=== PATIENT | male | born 1985 | race Caucasian/White ===

== ENCOUNTER 2017-04-22 16:33 | Inpatient (IN) | payer OTHER ==
[~2017-04-22] VITALS: Ht 175.3 cm; Wt 158.5 kg
[~2017-04-22 16:33] MED LIST: APIX1TAB3 PO; CARV3.12 PO
[2017-04-22 17:04] LABS: BASO % 0.1 %; BASO ABS # 0.01 K/uL (0-0.2); EOS % 0.6 %; EOS ABS # 0.07 K/uL (0-0.5); HEMATOCRIT 31.1 % (42-52); HEMOGLOBIN 9.9 g/dL (14.0-18.0); IG# 0.03 K/uL (0.00-0.02); LYMPH % 8.3 %; LYMPH ABS # 0.98 K/uL (1.2-3.4); MEAN CELL VOLUME 82.1 fL (80-100); MEAN CORPUSCULAR HEMOGLOBIN 26.1 pg (25-34); MEAN CORPUSCULAR HGB CONC 31.8 g/dl (32-36); MEAN PLATELET VOLUME 8.6 fL (7.4-10.4); MONO % 5.5 %; MONO ABS # 0.65 K/uL (0.11-0.59); NEUT % 85.2 %; NEUT ABS # 10.05 K/uL (1.4-6.5); PLATELET COUNT 324 K/uL (130-400); RED CELL DISTRIBUTION WIDTH SD 47.4 fL (36.4-46.3); WHITE BLOOD COUNT 11.79 K/uL (4.8-10.8)
--- NOTE | 2017-04-22 17:05 | EMERGENCY ROOM VISIT NOTE ---
History Report prepared by Janice: Hannah Mccallum Under the Supervision of: Dr. Kervin Guzman D.O. 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 As per nursing staff, he went to urgent care this morning and has a history of PEs. His oxygen saturation was in the 70s at urgent care. The patient reports he was told by the doctors that he had extremely low oxygen and recommended he come into the ED. He denies having any chest pain but has SOB whenever he walks. He notes he gets chills but denies any fevers. The patient states he believes he got a hernia four months ago because the area is "bulging." He also reports he has a history of IV drug abuse. 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 A total of 10 systems reviewed and were otherwise negative. Past Medical & Surgical Medical Problems: (1) Discitis of lumbar region (2) Pulmonary embolism Family History Hypertension Social History Smoking Status: Current Every Day Smoker Alcohol Use: none Drug Use: none Marital Status: single Housing Status: lives alone Occupation Status: unemployed Current/Historical Medications Scheduled Apixaban (Eliquis), 5 MG PO BID Allergies Coded Allergies: No Known Allergies (Unverified , 04/22/17) Physical Exam Vital Signs Date Time Temp Pulse Resp B/P (MAP) Pulse Ox O2 Delivery O2 Flow Rate FiO2 04/22/17 18:46 94 25 178/114 98 Nasal Cannula 4.0 04/22/17 17:52 96 21 168/107 99 Nasal Cannula 4.0 04/22/17 17:42 93 04/22/17 16:34 Nasal Cannula 4.0 04/22/17 16:34 36.8 120 26 185/115 76 Room Air 04/22/17 16:34 Nasal Cannula 4.0 Physical Exam GENERAL: Patient is awake and alert. Anxious appearing. Appears to be in distress. Awake, alert and oriented x3. EYES: The conjunctivae are clear. The pupils are round and reactive. EARS, NOSE, MOUTH AND THROAT: The nose is without any evidence of any deformity. Mucous membranes are moist tongue is midline NECK: The neck is nontender and supple. RESPIRATORY: Normal respiratory effort is noted there is no evidence of wheezing rhonchi or rales CARDIOVASCULAR: Regular rate and rhythm noted to auscultation. No distinct murmurs noted. Heart sounds were distant. ABDOMEN: GASTROINTESTINAL: Abdomen moderately distended. No guarding or rigidity appreciated. Significant scrotal edema noted. Erythema noted in both groins. MUSCULOSKELETAL/EXTREMITIES: There is no evidence of gross deformity full range of motion is noted in the hips and shoulders SKIN: Significant edema noted in both lower extremities NEUROLOGIC: Patient is awake alert and oriented x3 strength is symmetric patellar reflexes are 2+ bilaterally Medical Decision & Procedures ER Provider Diagnostic Interpretation: Radiology results as stated below per my review and radiologist interpretation: CHEST ONE VIEW PORTABLE CLINICAL HISTORY: Respiratory distress. Dyspnea. COMPARISON STUDY: Chest radiograph March 04, 2015. FINDINGS: Lordotic positioning on this exam is noted. There is no pneumothorax. No pleural effusion is visualized. Moderate cardiomegaly is noted. Reticulonodular interstitial thickening is present. There is no lobar consolidation. Bilateral hilar prominence is noted. There is a possible 1.8 cm right upper lobe opacity. IMPRESSION: 1. Interval development of reticulonodular interstitial thickening. Pulmonary edema is favored although an infectious process could appear similar. 2. Moderate cardiomegaly. 3. Possible 1.8 cm irregular right upper lobe opacity which can be assessed on chest CT which has been ordered. Electronically signed by: Kenny Frederick M.D. 04/22/2017 5:33 PM Dictated Date/Time: 04/22/2017 5:[address] OF THE ABDOMEN AND PELVIS WITHOUT CONTRAST CLINICAL HISTORY: Acute renal failure. COMPARISON STUDY: No previous studies for comparison. TECHNIQUE: Axial images of the abdomen and pelvis were obtained without IV contrast. Images were reviewed in the axial, sagittal, and coronal planes. A dose lowering technique was utilized adhering to the principles of ALARA. FINDINGS: Visualized portions of the lower chest demonstrate small bilateral pleural effusions. Interlobular septal thickening indicates pulmonary edema. There are mild subpleural opacities. Evaluation of the abdomen and pelvis is compromised given lack of contrast as well as artifact from the body wall contacting the anterior. Mild splenomegaly is noted. The tube within the gallbladder could reflect sludge or stones. There is no biliary or pancreatic ductal dilatation. There is no hydronephrosis. The kidneys appear mildly enlarged. No pneumatosis, free air or portal venous gas is present. There is no bowel obstruction. No suspicious lymphadenopathy is present. There is anasarca. Marked scrotal edema is partially imaged on this exam. There are no suspicious osseous lesions. There is mild diffuse increased sclerosis of visualized skeletal structures with multilevel degenerative disc disease. There is a small amount of ascites. IMPRESSION: 1. No hydronephrosis. 2. Evidence for volume overload, including anasarca with marked scrotal edema, small bilateral pleural effusions, interstitial pulmonary edema and trace ascites. 3. Mild bilateral renal enlargement. 4. Mild to moderate splenomegaly and mild hepatomegaly. 5. Sludge versus stones within the gallbladder. Electronically signed by: Kenny Frederick M.D. 04/22/2017 8:33 PM Dictated Date/Time: 04/22/2017 8:[address] OF THE CHEST WITHOUT IV CONTRAST CLINICAL HISTORY: PNM vs CHF COMPARISON STUDY: Chest radiograph March 04, 2015 and April 22, 2017. CT DOSE: 1141.25 mGy.cm TECHNIQUE: Axial images of the chest were obtained without IV contrast. Images were reviewed in the axial, sagittal, and coronal planes. IV contrast was not administered for this examination. A dose lowering technique was utilized adhering to the principles of ALARA. FINDINGS: Anasarca is noted. There is no pneumothorax. Small bilateral pleural effusions are noted. There is mild cardiomegaly. There is trace pericardial fluid. Central airways are patent. Interlobular septal thickening is noted. There are mild groundglass opacities as well as mild subpleural opacities. There is asymmetric right hilar enlargement. There is linear hyperdensity within the superior aspect of the right hilum. Mild to moderate splenomegaly is better depicted on the abdominal CT. Note is made of a 9 mm irregular opacity within the right upper lobe on image 103 of 306. This has adjacent cystic foci. Mildly enlarged bilateral axillary and mediastinal lymph nodes are noted. There may be bilateral hilar lymphadenopathy as well which is suboptimally assessed on this unenhanced exam. IMPRESSION: 1. Mild interstitial pulmonary edema. 2. Mild subpleural opacities which favor atelectasis however an infectious process could appear similar. 9 mm irregular opacity within the right upper lobe with a few adjacent cystic foci. This is likely benign however a follow-up chest CT in 3 months is recommended. 3. Evidence for volume overload with small bilateral pleural effusions and anasarca. 4. Asymmetric right hilar enlargement which may be vascular in etiology. However, lymphadenopathy could appear similar. Linear hyperdensity within the superior right hilum. If adequate renal function, a follow-up contrast-enhanced CT of the chest is recommended. 5. Mild mediastinal lymphadenopathy. Electronically signed by: Kenny Frederick M.D. 04/22/2017 10:06 PM Dictated Date/Time: 04/22/2017 9:54 PM Laboratory Results 04/22/17 16:53 Red Blood Count 3.79, Mean Corpuscular Volume 82.1, Mean Corpuscular Hemoglobin 26.1, Mean Corpuscular Hemoglobin Concent 31.8, Mean Platelet Volume 8.6, Neutrophils (%) (Auto) 85.2, Lymphocytes (%) (Auto) 8.3, Monocytes (%) (Auto) 5.5, Eosinophils (%) (Auto) 0.6, Basophils (%) (Auto) 0.1, Neutrophils # (Auto) 10.05, Lymphocytes # (Auto) 0.98, Monocytes # (Auto) 0.65, Eosinophils # (Auto) 0.07, Basophils # (Auto) 0.01 04/22/17 16:53 Test 04/22/17 16:53 04/22/17 18:25 White Blood Count 11.79 K/uL (4.8-10.8) Red Blood Count 3.79 M/uL (4.7-6.1) Hemoglobin 9.9 g/dL (14.0-18.0) Hematocrit 31.1 % (42-52) Mean Corpuscular Volume 82.1 fL (80-100) Mean Corpuscular Hemoglobin 26.1 pg (25-34) Mean Corpuscular Hemoglobin Concent 31.8 g/dl (32-36) Platelet Count 324 K/uL (130-400) Mean Platelet Volume 8.6 fL (7.4-10.4) Neutrophils (%) (Auto) 85.2 % Lymphocytes (%) (Auto) 8.3 % Monocytes (%) (Auto) 5.5 % Eosinophils (%) (Auto) 0.6 % Basophils (%) (Auto) 0.1 % Neutrophils # (Auto) 10.05 K/uL (1.4-6.5) Lymphocytes # (Auto) 0.98 K/uL (1.2-3.4) Monocytes # (Auto) 0.65 K/uL (0.11-0.59) Eosinophils # (Auto) 0.07 K/uL (0-0.5) Basophils # (Auto) 0.01 K/uL (0-0.2) RDW Standard Deviation 47.4 fL (36.4-46.3) RDW Coefficient of Variation 16.0 % (11.5-14.5) Immature Granulocyte % (Auto) 0.3 % Immature Granulocyte # (Auto) 0.03 K/uL (0.00-0.02) Prothrombin Time 11.2 SECONDS (9.0-12.0) Prothromb Time International Ratio 1.1 (0.9-1.1) Activated Partial Thromboplast Time 27.3 SECONDS (21.0-31.0) Partial Thromboplastin Ratio 1.1 Anion Gap 6.0 mmol/L (3-11) Estimated GFR () 46.9 Estimated GFR (Non- 40.4 BUN/Creatinine Ratio 10.5 (10-20) Calcium Level 7.3 mg/dl (8.5-10.1) Total Bilirubin 0.3 mg/dl (0.2-1) Aspartate Amino Transf (AST/SGOT) 23 U/L (15-37) Alanine Aminotransferase (ALT/SGPT) 12 U/L (12-78) Alkaline Phosphatase 230 U/L (45-117) Total Creatine Kinase 46 U/L (39-308) Creatine Kinase MB 1.3 ng/ml (0.5-3.6) Creatine Kinase MB Ratio 2.8 (0-3.0) Troponin I 0.040 ng/ml (0-0.045) Pro-B-Type Natriuretic Peptide > 36305 pg/ml (0-450) Total Protein 5.5 gm/dl (6.4-8.2) Albumin 1.3 gm/dl (3.4-5.0) Globulin 4.2 gm/dl (2.5-4.0) Albumin/Globulin Ratio 0.3 (0.9-2) Urine Color BROWN Urine Appearance TURBID (CLEAR) Urine pH (4.5-7.5) Urine Specific [place] 1.032 (1.000-1.030) Urine Protein (NEG) Urine Glucose (UA) (NEG) Urine Ketones (NEG) Urine Occult Blood (NEG) Urine Nitrite (NEG) Urine Bilirubin (NEG) Urine Urobilinogen (NEG) Urine Leukocyte Esterase (NEG) Urine RBC >30 /hpf (0-4) Urine WBC >30 /hpf (0-5) Urine Epithelial Cells >30 /lpf (0-5) Urine Bacteria 2+ (NEG) Urine Yeast PRESENT (NONE PRSENT) Laboratory results per my review. Medications Administered Medications (Trade) Dose Ordered Sig/Silvio Route Start Time Stop Time Status Last Admin Dose Admin Ceftriaxone Sodium (Rocephin Inj) 1 gm NOW STAT IV 04/22/17 18:54 04/22/17 18:55 DC 04/22/17 19:29 1 GM Furosemide (Lasix Inj) 40 mg NOW STAT IV 04/22/17 19:30 04/22/17 19:31 DC 04/22/17 19:42 40 MG ED Course 1646: The patient was evaluated in room C11. A complete history and physical examination were performed. 1710: I checked on the patient at this time. He is anxious appearing. 4: Rocephin Inj 1 gm IV 8: I spoke with Dr. Sanchez, [facility] Hospitalist. We discussed the patient's results 0: Lasix Inj 40 mg IV 1944: I spoke with Dr. Omalley, [facility] Hospitalist. We discussed the patient's case. He will further evaluate the patient. Medical Decision Prior records/ancillary studies reviewed. Triage Nursing notes reviewed. The patient's history was concerning for respiratory difficulties. Differential diagnosis: Etiologies such as infections, reactive airway disease, pneumonia, pneumothorax , COPD, CHF, cardiac ischemia, pulmonary embolism, musculoskeletal, gastrointestinal, as well as others were entertained. The patient is a 31-year-old male who presented to the emergency department from the [facility] in [place] for an evaluation of difficulty breathing. The patient has been noticing lower extremity and scrotal edema as well as difficulty breathing. The patient was found to have significant hypoxia and was sent to our emergency department for further evaluation. At this time the patient appears to have signs of pulmonary edema. He has a history of venous thromboembolic disease and currently is taking anticoagulation. He had a bump in his creatinine and therefore could not have IV contrasted scans at this time. CT of the abdomen and pelvis was obtained. The patient was treated with Lasix as well as IV antibiotics for presumed urinary tract infection. I discussed the patient's laboratory and radiographic studies with him. I also discussed his case with the on-call [facility] hospitalist group. They have agreed to evaluate the patient in the emergency department for further management and disposition. Medication Reconcilliation Current Medication List: was personally reviewed by me Blood Pressure Screening Patient's blood pressure: Elevated blood pressure Blood pressure disposition: Referred to PCP Consults Time Called: 1849 Consulting Physician: Dr. Sanchez, [facility] Hospitalist Returned Call: 1857 I discussed the patient's results. Additional Consults: Time Called: 1939 Consulted Physician: Dr. Omalley, [facility] Hospitalist Returned Call: 1944 Additional Comments: We discussed the patient's results. He will further evaluate the patient. Impression Primary Impression: Hypoxia Additional Impressions: Pulmonary edema Acute kidney injury Urinary tract infection Scribe Attestation The scribe's documentation has been prepared under my direction and personally reviewed by me in its entirety. I confirm that the note above accurately reflects all work, treatment, procedures, and medical decision making performed by me. Departure Information Dispostion Being Evaluated By Hospitalist Referrals Luis Ha D.O. (PCP) Problem Qualifiers Additional Impressions: Pulmonary edema Chronicity: acute Qualified Codes: J81.0 - Acute pulmonary edema Urinary tract infection Urinary tract infection type: site unspecified Hematuria presence: with hematuria Qualified Codes: N39.0 - Urinary tract infection, site not specified ; R31.9 - Hematuria, unspecified
[2017-04-22 17:13] LABS: INR 1.1 (0.9-1.1); PTT PATIENT 27.3 SECONDS (21.0-31.0)
[2017-04-22] MEDS ORDERED: OPTIRAY 320 IV PRN (17:15)
[2017-04-22 17:23] LABS: ALBUMIN 1.3 gm/dl (3.4-5.0); ALT/SGPT 12 U/L (12-78); AST/SGOT 23 U/L (15-37); BLOOD UREA NITROGEN 22 mg/dl (7-18); CALCIUM 7.3 mg/dl (8.5-10.1); CARBON DIOXIDE 26 mmol/L (21-32); GLUCOSE 100 mg/dl (70-99); POTASSIUM 3.8 mmol/L (3.5-5.1); SODIUM 142 mmol/L (136-145)
[2017-04-22 17:28] LABS: ALKALINE PHOSPHATASE 230 U/L (45-117); CKMB 1.3 ng/ml (0.5-3.6); TOTAL PROTEIN 5.5 gm/dl (6.4-8.2)
--- NOTE | 2017-04-22 17:35 | DIAGNOSTIC IMAGING REPORT ---
CHEST ONE VIEW PORTABLE CLINICAL HISTORY: Respiratory distress. Dyspnea. COMPARISON STUDY: Chest radiograph March 04, 2015. FINDINGS: Lordotic positioning on this exam is noted. There is no pneumothorax. No pleural effusion is visualized. Moderate cardiomegaly is noted. Reticulonodular interstitial thickening is present. There is no lobar consolidation. Bilateral hilar prominence is noted. There is a possible 1.8 cm right upper lobe opacity. IMPRESSION: 1. Interval development of reticulonodular interstitial thickening. Pulmonary edema is favored although an infectious process could appear similar. 2. Moderate cardiomegaly. 3. Possible 1.8 cm irregular right upper lobe opacity which can be assessed on chest CT which has been ordered. Electronically signed by: Kenny Frederick M.D. 04/22/2017 5:33 PM Dictated Date/Time: 04/22/2017 5:31 PM
[2017-04-22] MEDS ORDERED: CEFTRIAXONE SOD INJ 1 GM ADDVIAL IV STA (18:54)
[2017-04-22] MEDS ORDERED: FUROSEMIDE 40 MG/4 ML VIAL IV STA (19:30)
--- NOTE | 2017-04-22 20:35 | DIAGNOSTIC IMAGING REPORT ---
CT OF THE ABDOMEN AND PELVIS WITHOUT CONTRAST CLINICAL HISTORY: Acute renal failure. COMPARISON STUDY: No previous studies for comparison. TECHNIQUE: Axial images of the abdomen and pelvis were obtained without IV contrast. Images were reviewed in the axial, sagittal, and coronal planes. A dose lowering technique was utilized adhering to the principles of ALARA. FINDINGS: Visualized portions of the lower chest demonstrate small bilateral pleural effusions. Interlobular septal thickening indicates pulmonary edema. There are mild subpleural opacities. Evaluation of the abdomen and pelvis is compromised given lack of contrast as well as artifact from the body wall contacting the anterior. Mild splenomegaly is noted. The tube within the gallbladder could reflect sludge or stones. There is no biliary or pancreatic ductal dilatation. There is no hydronephrosis. The kidneys appear mildly enlarged. No pneumatosis, free air or portal venous gas is present. There is no bowel obstruction. No suspicious lymphadenopathy is present. There is anasarca. Marked scrotal edema is partially imaged on this exam. There are no suspicious osseous lesions. There is mild diffuse increased sclerosis of visualized skeletal structures with multilevel degenerative disc disease. There is a small amount of ascites. IMPRESSION: 1. No hydronephrosis. 2. Evidence for volume overload, including anasarca with marked scrotal edema, small bilateral pleural effusions, interstitial pulmonary edema and trace ascites. 3. Mild bilateral renal enlargement. 4. Mild to moderate splenomegaly and mild hepatomegaly. 5. Sludge versus stones within the gallbladder. Electronically signed by: Kenny Frederick M.D. 04/22/2017 8:33 PM Dictated Date/Time: 04/22/2017 8:28 PM
--- NOTE | 2017-04-22 20:58 | History and Physical ---
History & Physical Date & Time of Service: Apr 22, 2017 at 20:19 Chief Complaint: Edema To Hands, Legs & Groin Primary Care Physician: Luis Ha D.O. History of Present Illness Source: patient 31 y/o M Hx PE, obesity, previous IVDU, lumbar osteomyelitis. The pt states he began developing LE edema 3 months ago. This became progressively worse and appeared to gradually ascend. 4 days prior he began developing scrotal edema which in turn was affecting his ability to work. He presented to an urgent care center where it was noted that his oxygen saturation was low. He was referred to the hospital for admission. The pt denies a recent illness, denies recent IVDU, denies CP or significant SOB. Initial labs obtained in the ER reveal ARF and severe hypoalbuminemia. An XR shows BL pleural effusions. Clinically, anasarca is apparent with pitting edema of his legs, abdomen and arms. 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 Smoking Status: Current Every Day Smoker Drug Use: none Marital Status: single Occupational Status: unemployed Allergies Coded Allergies: No Known Allergies (Unverified , 04/22/17) Home Medications Scheduled Apixaban (Eliquis), 5 MG PO BID Review of Systems Constitutional: No fever, No chills, No sweats Eyes: No worsening of vision ENT: No hearing loss, No nasal symptoms Respiratory: No cough, No sputum, No shortness of breath, No dyspnea on exertion, No dyspnea at rest Cardiovascular: No chest pain, No orthopnea, No PND Abdomen: No pain, No nausea, No vomiting Musculoskeletal: + problem reported (Swelling of legs, arms, scrotum and abdomen), No joint pain Genitourinary - Male: No hematuria, No dysuria Neurologic: No memory loss, No paralysis, No weakness Psychiatric: No depression symptoms Endocrine: No fatigue Hematologic / Lymphatic: No abnormal bleeding/bruising Integumentary: No rash Allergic / Immunologic: No environmental allergies Physical Exam Vital Signs Date Time Temp Pulse Resp B/P (MAP) Pulse Ox O2 Delivery O2 Flow Rate FiO2 04/22/17 18:46 94 25 178/114 98 Nasal Cannula 4.0 04/22/17 17:52 96 21 168/107 99 Nasal Cannula 4.0 04/22/17 17:42 93 04/22/17 16:34 Nasal Cannula 4.0 04/22/17 16:34 36.8 120 26 185/115 76 Room Air 04/22/17 16:34 Nasal Cannula 4.0 General Appearance: WD/WN, no apparent distress Head: normocephalic Eyes: normal inspection ENT: normal ENT inspection, pharynx normal Neck: supple, + pertinent finding (Cannot evaluate JVD due to habitus) Respiratory/Chest: chest non-tender, + pertinent finding (NO air entry at bases - no crackles or wheezing) Cardiovascular: regular rate, rhythm Abdomen/GI: normal bowel sounds, non tender, + pertinent finding (pitting edema of lower abdomen) Genitourinary - Male: + pertinent finding (Scrotal edema) Back: normal inspection, no CVA tenderness Extremities/Musculoskelatal: + pertinent finding (Massive BL pitting edema tracking into pelvis/thighs) Neurologic/Psych: intellectual property lawyer II-XII nml as tested, no motor/sensory deficits, alert, oriented x 3 Skin: normal color Diagnostics Laboratory Results Results Past 24 Hours Test 04/22/17 16:53 04/22/17 18:25 Range/Units White Blood Count 11.79 4.8-10.8 K/uL Red Blood Count 3.79 4.7-6.1 M/uL Hemoglobin 9.9 14.0-18.0 g/dL Hematocrit 31.1 42-52 % Mean Corpuscular Volume 82.1 80-100 fL Mean Corpuscular Hemoglobin 26.1 25-34 pg Mean Corpuscular Hemoglobin Concent 31.8 32-36 g/dl Platelet Count 324 130-400 K/uL Mean Platelet Volume 8.6 7.4-10.4 fL Neutrophils (%) (Auto) 85.2 % Lymphocytes (%) (Auto) 8.3 % Monocytes (%) (Auto) 5.5 % Eosinophils (%) (Auto) 0.6 % Basophils (%) (Auto) 0.1 % Neutrophils # (Auto) 10.05 1.4-6.5 K/uL Lymphocytes # (Auto) 0.98 1.2-3.4 K/uL Monocytes # (Auto) 0.65 0.11-0.59 K/uL Eosinophils # (Auto) 0.07 0-0.5 K/uL Basophils # (Auto) 0.01 0-0.2 K/uL RDW Standard Deviation 47.4 36.4-46.3 fL RDW Coefficient of Variation 16.0 11.5-14.5 % Immature Granulocyte % (Auto) 0.3 % Immature Granulocyte # (Auto) 0.03 0.00-0.02 K/uL Prothrombin Time 11.2 9.0-12.0 SECONDS Prothromb Time International Ratio 1.1 0.9-1.1 Activated Partial Thromboplast Time 27.3 21.0-31.0 SECONDS Partial Thromboplastin Ratio 1.1 Sodium Level 142 136-145 mmol/L Potassium Level 3.8 3.5-5.1 mmol/L Chloride Level 110 98-107 mmol/L Carbon Dioxide Level 26 21-32 mmol/L Anion Gap 6.0 3-11 mmol/L Blood Urea Nitrogen 22 7-18 mg/dl Creatinine 2.10 0.60-1.40 mg/dl Estimated GFR () 46.9 Estimated GFR (Non- 40.4 BUN/Creatinine Ratio 10.5 10-20 Random Glucose 100 70-99 mg/dl Calcium Level 7.3 8.5-10.1 mg/dl Total Bilirubin 0.3 0.2-1 mg/dl Aspartate Amino Transf (AST/SGOT) 23 15-37 U/L Alanine Aminotransferase (ALT/SGPT) 12 12-78 U/L Alkaline Phosphatase 230 45-117 U/L Total Creatine Kinase 46 39-308 U/L Creatine Kinase MB 1.3 0.5-3.6 ng/ml Creatine Kinase MB Ratio 2.8 0-3.0 Troponin I 0.040 0-0.045 ng/ml Pro-B-Type Natriuretic Peptide > 97942 0-450 pg/ml Total Protein 5.5 6.4-8.2 gm/dl Albumin 1.3 3.4-5.0 gm/dl Globulin 4.2 2.5-4.0 gm/dl Albumin/Globulin Ratio 0.3 0.9-2 Urine Color BROWN Urine Appearance TURBID CLEAR Urine pH 4.5-7.5 Urine Specific [place] 1.032 1.000-1.030 Urine Protein NEG Urine Glucose (UA) NEG Urine Ketones NEG Urine Occult Blood NEG Urine Nitrite NEG Urine Bilirubin NEG Urine Urobilinogen NEG Urine Leukocyte Esterase NEG Urine RBC >30 0-4 /hpf Urine WBC >30 0-5 /hpf Urine Epithelial Cells >30 0-5 /lpf Urine Bacteria 2+ NEG Urine Yeast PRESENT NONE PRSENT Diagnostic Radiology CXR: 1. Interval development of reticulonodular interstitial thickening. Pulmonary edema is favored although an infectious process could appear similar. 2. Moderate cardiomegaly. 3. Possible 1.8 cm irregular right upper lobe opacity which can be assessed on chest CT which has been ordered. CT abdomen: 1. No hydronephrosis. 2. Evidence for volume overload, including anasarca with marked scrotal edema, small bilateral pleural effusions, interstitial pulmonary edema and trace ascites. 3. Mild bilateral renal enlargement. 4. Mild to moderate splenomegaly and mild hepatomegaly. 5. Sludge versus stones within the gallbladder EKG Sinus tach, low voltage - nonspecific lateral ST changes Impression Assessment and Plan 31 y/o M Hx PE, obesity, previous IVDU, lumbar osteomyelitis. The pt states he began developing LE edema 3 months ago. This became progressively worse and appeared to gradually ascend. 4 days prior he began developing scrotal edema which in turn was affecting his ability to work. He presented to an urgent care center where it was noted that his oxygen saturation was low. He was referred to the hospital for admission. The pt denies a recent illness, denies recent IVDU, denies CP or significant SOB. Initial labs obtained in the ER reveal ARF and severe hypoalbuminemia. An XR shows BL pleural effusions. Clinically, anasarca is apparent with pitting edema of his legs, abdomen and arms. 1) Anasarca with pleural effusions. Combined with ARF and hypoalbuminemia, this most likely represents nephrotic syndrome. We cannot entirely rule out CHF , however, he denies related symptoms. It is also noted that he had a spontaneous PE, is taking Eliquis, and was not provided with a definitive etiology. It may be that his nephrotic syndrome has been present for an extended period and is just now manifesting clinically. He would also be at risk fro hep C and cryoglobulinemia due to previous IVDU. We have consulted nephrology, he will be started on Lasix and may require an DAVID as well as steroids depending on the etiology of his syndrome. We have requested a hep C screen, C3, C4, KENN, urine and serum electrophoresis, cryoglobulin level. A 24 hr urine protein collection is initiated. An echo is pending for AM - an EKG shows low voltage which may be owing to his habitus, however, a pericardial effusion would not be unexpected. 2) History of PE - pt has been compliant with Eliquis - a CTA is deferred due to ARF. 3) AST is elevated - elevation is chronic 4) The pt's UA is (+) - unclear if this is a valid sample - will treat with Ceftriaxone pending culture results and repeat UA Full code - Apixaban Total time for this admit including review of labs, meds, imaging, records - discussion with pt and ER attending - 45 min Level of Care Telemetry Resuscitation Status FULL RESUSCITATION VTE Prophylaxis Given or contraindicated: Other Anticoagulation
[2017-04-22] MEDS ORDERED: ONDANSETRON INJ 2 MG/ML 2 ML VIAL IV PRN (21:00)
[2017-04-22] MEDS ORDERED: ALUMINUM/MAGNESIUM/SIMETH (MAALOX MAX) 30 ML UDC PO PRN (21:00)
[2017-04-22] MEDS ORDERED: ACETAMINOPHEN 325 MG TAB PO PRN (21:00)
[2017-04-22] MEDS ORDERED: POLYETHYLENE (MIRALAX) 17 GM PACK PO PRN (21:00)
[2017-04-22] MEDS ORDERED: MAGNESIUM HYDROXIDE SUSP 30 ML UDC PO PRN (21:00)
--- NOTE | 2017-04-22 22:07 | DIAGNOSTIC IMAGING REPORT ---
CT OF THE CHEST WITHOUT IV CONTRAST CLINICAL HISTORY: PNM vs CHF COMPARISON STUDY: Chest radiograph March 04, 2015 and April 22, 2017. CT DOSE: 1141.25 mGy.cm TECHNIQUE: Axial images of the chest were obtained without IV contrast. Images were reviewed in the axial, sagittal, and coronal planes. IV contrast was not administered for this examination. A dose lowering technique was utilized adhering to the principles of ALARA. FINDINGS: Anasarca is noted. There is no pneumothorax. Small bilateral pleural effusions are noted. There is mild cardiomegaly. There is trace pericardial fluid. Central airways are patent. Interlobular septal thickening is noted. There are mild groundglass opacities as well as mild subpleural opacities. There is asymmetric right hilar enlargement. There is linear hyperdensity within the superior aspect of the right hilum. Mild to moderate splenomegaly is better depicted on the abdominal CT. Note is made of a 9 mm irregular opacity within the right upper lobe on image 103 of 306. This has adjacent cystic foci. Mildly enlarged bilateral axillary and mediastinal lymph nodes are noted. There may be bilateral hilar lymphadenopathy as well which is suboptimally assessed on this unenhanced exam. IMPRESSION: 1. Mild interstitial pulmonary edema. 2. Mild subpleural opacities which favor atelectasis however an infectious process could appear similar. 9 mm irregular opacity within the right upper lobe with a few adjacent cystic foci. This is likely benign however a follow-up chest CT in 3 months is recommended. 3. Evidence for volume overload with small bilateral pleural effusions and anasarca. 4. Asymmetric right hilar enlargement which may be vascular in etiology. However, lymphadenopathy could appear similar. Linear hyperdensity within the superior right hilum. If adequate renal function, a follow-up contrast-enhanced CT of the chest is recommended. 5. Mild mediastinal lymphadenopathy. Electronically signed by: Kenny Frederick M.D. 04/22/2017 10:06 PM Dictated Date/Time: 04/22/2017 9:54 PM
[2017-04-22 22:51] VITALS: BP 180/103; PULSE 102; TEMP 36.7; O2SAT 95; Ht 175.3 cm; Wt 158.5 kg
[2017-04-23] VITALS (8 sets, daily range): BP systolic 141–195; BP diastolic 82–105; PULSE 87–97; TEMP 36.3–36.9; O2SAT 92–96
[2017-04-23] MEDS: POTASSIUM CHLORIDE 10 MEQ TABCR PO SCH ×3 (00:11→16:39)
[2017-04-23] MEDS: APIXABAN 2.5 MG TAB PO SCH ×3 (00:11→20:28)
[2017-04-23] MEDS: FUROSEMIDE INJ 20 MG in SYRINGE 0 ML IV SCH ×3 (00:11→16:39)
[2017-04-23] MEDS: NICOTINE 14 MG/24 HR TDSY TD SCH (01:51)
[2017-04-23 08:01] LABS: CREATININE 2.01 mg/dl (0.60-1.40); POTASSIUM 3.9 mmol/L (3.5-5.1)
[2017-04-23 08:04] LABS: HEMATOCRIT 29.3 % (42-52); MEAN CELL VOLUME 82.8 fL (80-100); MEAN CORPUSCULAR HEMOGLOBIN 25.4 pg (25-34); MEAN CORPUSCULAR HGB CONC 30.7 g/dl (32-36); MEAN PLATELET VOLUME 9.1 fL (7.4-10.4); PLATELET COUNT 321 K/uL (130-400); RED CELL DISTRIBUTION WIDTH CV 15.8 % (11.5-14.5); RED CELL DISTRIBUTION WIDTH SD 48.1 fL (36.4-46.3)
--- NOTE | 2017-04-23 13:22 | Nephrology Consultation ---
Nephrology Consultation Date & Providers Date of Consultation: Apr 23, 2017. Primary Care Provider: Luis Ha D.O. Referring Provider: Reason for Consultation Nephrosis History of Present Illness Star Gallardo is a 31-year-old male admitted to [facility] yesterday with anasarca. Star describes progressive symptoms of generalized swelling and edema over the past several months. He notes that he presented to his PCP (Dr. Reis in [place]). At that time, there was concern that the patient could be developing a DVT. Star was restarted on Eliquis. Unfortunately, symptoms persisted. Over the past couple of months edema extended from Star's legs into his abdomen. Star reports that several weeks before the edema started his urine became "discolored." He was treated with a few days of an antibiotic for suspected infection. Star stopped working last week. 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 Star was no longer able to continue to work due to the extent of his scrotal edema. He was unable to walk and it became necessary to present for evaluation. The patient presented to the acute care clinic at [facility]. He was initially found to be hypoxic and was directed to [facility] for additional evaluation. 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 The patient was transferred from [facility] to [facility] at that time. He completed treatment with IV antibiotics and was able to treat his addiction. Star states that he has been free of any IV drug use since that time. Hypercoagulable work up was reportedly negative in the past. He reports prior negative screening for HIV and hepatitis C. Past Medical/Surgical History Medical: -- History of unprovoked DVT with reportedly negative hypercoagulable work up -- History of IV opiate abuse -- History of spinal osteomyelitis -- Morbid obesity (recent >60 lbs weight gain over the past few months) -- History of UTI -- Tobacco abuse Surgical: PICC placement Allergies Coded Allergies: No Known Allergies (Unverified , 04/22/17) Inpatient Medications Current Inpatient Medications Medications (Trade) Dose Ordered Sig/Silvio Route Start Time Stop Time Status Last Admin Dose Admin Ioversol (Optiray 320) 100 ml UD PRN IV 04/22/17 17:15 04/26/17 17:14 Apixaban (Eliquis Tab) 5 mg BID PO 04/22/17 23:45 05/22/17 23:44 04/23/17 07:56 5 MG Ceftriaxone Sodium 1 gm/ Dextrose 50 ml @ 100 mls/hr Q24H IV 04/23/17 20:00 04/28/17 19:59 Acetaminophen (Tylenol Tab) 650 mg Q4H PRN PO 04/22/17 21:00 05/22/17 20:59 Al Hydrox/Mg Hydrox/Simethicone (Maalox Max Susp) 15 ml Q4H PRN PO 04/22/17 21:00 05/22/17 20:59 Magnesium Hydroxide (Milk Of Magnesia Susp) 30 ml Q12H PRN PO 04/22/17 21:00 05/22/17 20:59 Ondansetron HCl (Zofran Inj) 4 mg Q6H PRN IV 04/22/17 21:00 05/22/17 20:59 Polyethylene (Miralax Powder Packet) 17 gm DAILY PRN PO 04/22/17 21:00 05/22/17 20:59 Furosemide 20 mg/ Syringe 2 ml @ 4 mls/min BID17 IV 04/22/17 23:45 05/22/17 23:44 04/23/17 07:55 4 MLS/MIN Potassium Chloride (Klor-Con M10) 10 meq BID17 PO 04/22/17 23:45 05/22/17 23:44 04/23/17 07:56 10 MEQ Nicotine (Nicoderm Cq 14MG Patch) 1 patch QAM TD 04/23/17 00:45 05/23/17 00:44 04/23/17 01:51 1 PATCH Miscellaneous (Remove Nicoderm Patch) 1 ea HS N/A 04/23/17 21:00 05/23/17 20:59 Hydralazine HCl (HydrALAZINE INJ) 20 mg Q6 PRN IV. 04/23/17 09:15 05/23/17 09:14 Family History Hypertension Social History Smoking Status: Current Every Day Smoker Drug Use: none Marital Status: single Occupation: unemployed Review of Systems A complete review of systems was performed. Pertinent positives are noted above. All other systems are negative. Physical Exam Date Time Temp Pulse Resp B/P (MAP) Pulse Ox O2 Delivery O2 Flow Rate FiO2 04/23/17 12:12 36.3 92 161/95 (117) 92 Room Air 04/23/17 12:03 Room Air 04/23/17 08:09 36.9 87 16 195/105 (135) 93 Nasal Cannula 1.0 04/23/17 08:06 95 Room Air 04/23/17 04:00 Nasal Cannula 2.0 04/23/17 03:26 36.7 91 18 141/93 (109) 94 Nasal Cannula 1.5 04/22/17 23:59 Nasal Cannula 2.0 04/22/17 22:51 36.7 102 20 180/103 95 Nasal Cannula 2.0 04/22/17 22:01 88 04/22/17 21:56 88 20 160/107 96 Nasal Cannula 4.0 04/22/17 20:46 96 22 177/100 96 Nasal Cannula 3.0 04/22/17 18:46 94 25 178/114 98 Nasal Cannula 4.0 04/22/17 17:52 96 21 168/107 99 Nasal Cannula 4.0 04/22/17 17:42 93 04/22/17 16:34 Nasal Cannula 4.0 04/22/17 16:34 36.8 120 26 185/115 76 Room Air 04/22/17 16:34 Nasal Cannula 4.0 General Appearance: no apparent distress, + obese Head: normocephalic, atraumatic Eyes: normal inspection, sclerae normal ENT: normal ENT inspection, pharynx normal Neck: supple, no JVD Respiratory/Chest: no respiratory distress, no accessory muscle use, + decreased breath sounds Cardiovascular: regular rate, rhythm, no gallop, no murmur Abdomen/GI: non tender, soft, + pertinent finding (obese with abdominal wall edema) Genitourinary - Male: + pertinent finding (significant scrotal edema) Extremities/Musculoskelatal: + pertinent finding (generalized edema, no distal cyanosis) Skin: normal color Laboratory Results Last 24 Hours Test 04/22/17 16:53 04/22/17 18:25 04/23/17 00:00 04/23/17 07:14 White Blood Count 11.79 K/uL 6.70 K/uL Red Blood Count 3.79 M/uL 3.54 M/uL Hemoglobin 9.9 g/dL 9.0 g/dL Hematocrit 31.1 % 29.3 % Mean Corpuscular Volume 82.1 fL 82.8 fL Mean Corpuscular Hemoglobin 26.1 pg 25.4 pg Mean Corpuscular Hemoglobin Concent 31.8 g/dl 30.7 g/dl Platelet Count 324 K/uL 321 K/uL Mean Platelet Volume 8.6 fL 9.1 fL Neutrophils (%) (Auto) 85.2 % Lymphocytes (%) (Auto) 8.3 % Monocytes (%) (Auto) 5.5 % Eosinophils (%) (Auto) 0.6 % Basophils (%) (Auto) 0.1 % Neutrophils # (Auto) 10.05 K/uL Lymphocytes # (Auto) 0.98 K/uL Monocytes # (Auto) 0.65 K/uL Eosinophils # (Auto) 0.07 K/uL Basophils # (Auto) 0.01 K/uL RDW Standard Deviation 47.4 fL 48.1 fL RDW Coefficient of Variation 16.0 % 15.8 % Immature Granulocyte % (Auto) 0.3 % Immature Granulocyte # (Auto) 0.03 K/uL Prothrombin Time 11.2 SECONDS Prothromb Time International Ratio 1.1 Activated Partial Thromboplast Time 27.3 SECONDS Partial Thromboplastin Ratio 1.1 Sodium Level 142 mmol/L 141 mmol/L Potassium Level 3.8 mmol/L 3.9 mmol/L Chloride Level 110 mmol/L 109 mmol/L Carbon Dioxide Level 26 mmol/L 24 mmol/L Anion Gap 6.0 mmol/L 8.0 mmol/L Blood Urea Nitrogen 22 mg/dl 23 mg/dl Creatinine 2.10 mg/dl 2.01 mg/dl Estimated GFR () 46.9 49.4 Estimated GFR (Non- 40.4 42.6 BUN/Creatinine Ratio 10.5 11.4 Random Glucose 100 mg/dl 84 mg/dl Calcium Level 7.3 mg/dl 7.0 mg/dl Total Bilirubin 0.3 mg/dl Aspartate Amino Transf (AST/SGOT) 23 U/L Alanine Aminotransferase (ALT/SGPT) 12 U/L Alkaline Phosphatase 230 U/L Total Creatine Kinase 46 U/L Creatine Kinase MB 1.3 ng/ml Creatine Kinase MB Ratio 2.8 Troponin I 0.040 ng/ml Pro-B-Type Natriuretic Peptide > 55202 pg/ml > 67634 pg/ml Total Protein 5.5 gm/dl Albumin 1.3 gm/dl Globulin 4.2 gm/dl Albumin/Globulin Ratio 0.3 Hepatitis C Antibody NEG Urine Color BROWN Urine Appearance TURBID Urine pH Urine Specific [place] 1.032 Urine Protein Urine Glucose (UA) Urine Ketones Urine Occult Blood Urine Nitrite Urine Bilirubin Urine Urobilinogen Urine Leukocyte Esterase Urine RBC >30 /hpf Urine WBC >30 /hpf Urine Epithelial Cells >30 /lpf Urine Bacteria 2+ Urine Yeast PRESENT Est Creatinine Clear Calc Drug Dose 82.9 ml/min Magnesium Level 1.8 mg/dl Triglycerides Level 143 mg/dl Cholesterol Level 92 mg/dl HDL Cholesterol 17 mg/dl LDL Cholesterol, Calculated 46 mg/dl VLDL Cholesterol, Calculated 29 mg/dl Cholesterol/HDL Ratio 5.4 Test 04/23/17 10:53 04/23/17 10:54 04/23/17 11:19 Urine Color ORANGE Urine Appearance TURBID Urine pH 5.0 Urine Specific [place] 1.019 Urine Protein 4+ Urine Glucose (UA) NEG Urine Ketones NEG Urine Occult Blood 3+ Urine Nitrite NEG Urine Bilirubin NEG Urine Urobilinogen NEG Urine Leukocyte Esterase MODERATE Urine RBC (Auto) /hpf Urine Hyaline Casts (Auto) /lpf Urine RBC >30 /hpf Urine WBC >30 /hpf Urine Epithelial Cells 0-5 /lpf Urine Bacteria 2+ Urine White Blood Cell Casts 1-5 /lpf Urine Pathogenic Casts /lpf Urine Yeast (Auto) Urine Random Total Protein 1030.0 mg/dl Urine Opiates Screen NEG Urine Methadone, Qualitative NEG Urine Barbiturates NEG Urine Phencyclidine (PCP) Level NEG Ur Amphetamine/Methamphetamine NEG MDMA (Ecstasy) Screen NEG Urine Benzodiazepines Screen NEG Urine Cocaine Metabolite NEG Urine Marijuana (THC) POS Bedside Glucose 89 mg/dl Impression (1) Renal insufficiency (2) Proteinuria (3) Anasarca (4) Hypoalbuminemia (5) Anemia Star is a 31 year-old male with anasarca including significant scrotal edema. He is hypoalbuminemic. He is hypertensive. Renal insufficiency is noted with a serum creatinine of 2.0 mg/dL. There is no recent baseline renal function assessment available for review. The patient is non-oliguric. UA is notable for 4+ protein. Urine is notable for 30+ WBC, 30+ RBC and 2+ bacteria. Urine culture is pending. A 24 hour urine collection is currently underway. CT scan of the chest, abdomen and pelvis was reviewed. The kidney are enlarged. There is diffuse edema as well as enlargement of the liver and spleen. Hilar adenopathy is appreciated. Past medical history is notable for a history of DVT, chronic anticoagulation with Eliquis, obesity, history of IV drug abuse, history of spinal osteomyelitis. Clinical presentation is concerning for a progressive glomerulopathy. The patient has stigmata of nephrosis with notable proteinuria and hypoalbuminemia. Medical history suggests risk factors for secondary FSGS or MPGN. I cannot exclude other etiologies such as membranous or minimal change. Less likely would be an infiltrative process. Nephrosis from sarcoidosis would be atypical. Clinical presentation would be atypical for a warfarin nephropathy (which can be associated with Eliquis) or AIN. I would consider stopping the medication. Additional records from [facility] and the patient's primary care physician will be requested. However, the need for continued anticoagulation at this time is unclear and renal biopsy may need to be considered. I would repeat hepatitis screen for B and C as well as check HIV status. The patient is agreeable. Recommendations Nephrosis: -- Continue furosemide to encourage net negative fluid balance -- Furosemide increased to 40 mg twice daily -- Sodium restrict diet -- Monitor metabolic profile daily -- 24 hour urine for protein is in process -- SPEP/immunofixation, hepatitis serology, HIV pending -- Avoid NSAIDS -- Hold DAVID/ARB option for now Hypertension: -- Hydralazine 50 mg TID -- DAVID held pending trending of creatinine Pyuria: -- Currently on ceftriaxone for possible UTI -- Culture pending Hematuria: -- Etiology unclear -- Patient has gross hematuria which may be related to cystitis History of DVT: -- Records requested
--- NOTE | 2017-04-23 15:38 | ECHOCARDIOGRAM REPORT ---
*NOTICE TO RECEIVING REPUBLICAN AGENCY This information is strictly Confidential and protected under [place] law. [place] law prohibits you from making any further disclosure of this information unless further disclosure is expressly permitted by the written consent of the person to whom it pertains or is authorized by law. A general authorization for the release of medical or other information is not sufficient for this purpose. Hospital accepts no responsibility if the information is made available to any other person, INCLUDING THE PATIENT. Interpretation Summary * Name: AIRAM HARTMAN Study Date: 04/23/2017 10:47 AM BP: 195/105 mmHg * Patient Location: C.2T\S\S241\S\1 HR: 87 * : 1985 (M/d/yyyy) Gender: Male Height: 69 in * Age: 31 yrs Ethnicity: CA Weight: 378 lb * Ordering Physician: Roddy Grigsby * Referring Physician: Self, Referred * Performed By: Shira Meraz RDCS * * Reason For Study: CHF? * BSA: 2.7 m2 * -- Conclusions -- * 1. Technically difficult study. * 2. Normal LV size, mild concentric LVH. * 3. LVEF 45-50%. Mild inferior base to mid hypokinesis. * 4. RV not well visualized. Grossly normal size. * 5. Severe pulmonary hypertension. Est PASP 65-70 mmHG. Dilated IVC. Est RA 15 mmHg. * 6. No prior studies for comparison. Procedure Details * A complete two-dimensional transthoracic echocardiogram was performed (2D, M-mode, Doppler and color flow Doppler). * A contrast injection of Definity was performed to improve assessment of LV function. * Contrast was injected into an intravenous site in the central line. * One vial of Definity ultrasound contrast was diluted in normal saline to a total volume of 10 ml. A total of '2' ml of solution was administered during imaging. * Lot # [id number] of Definity utilized for procedure. * Expiration date MAR 25. * The attending nurse who injected the contrast agent was TERESO SIMEON. Left Ventricle * The left ventricle is grossly normal size. * There is mild concentric left ventricular hypertrophy. * Ejection Fraction = 45-50%. * Mild inferior base to mid hypokinesis. Right Ventricle * The right ventricle is not well visualized. * The right ventricle is grossly normal size. Atria * The left atrium is not well visualized. * The left atrial size is normal. * Right atrium not well visualized. * No ASD detected; PFO is not assessed. Mitral Valve * The mitral valve is grossly normal. * There is no mitral valve stenosis. * There is trace mitral regurgitation. Tricuspid Valve * There is mild tricuspid regurgitation. * Right ventricular systolic pressure is elevated at >60mmHg. Aortic Valve * The aortic valve opens well. * No hemodynamically significant valvular aortic stenosis. * There is no significant aortic regurgitation. Pulmonic Valve * The pulmonary valve is inadequately visualized, but the Doppler data is adequate for interpretation. * Pulmonic stenosis is absent. * Trace pulmonic valvular regurgitation. Great Vessels * The aortic root and proximal ascending aorta are normal sized. Pericardium/Pleural * There is no pericardial effusion. Great Vessels * Dilated inferior vena cava with reduced collapsability with sniff indicates an elevated right atrial pressure of 15 mmHg MMode 2D Measurements and Calculations IVSd 1.2 cm IVSs 1.7 cm LVIDd 5.0 cm LVIDs 3.5 cm LVPWd 1.5 cm LVPWs 2.6 cm IVS/LVPW 0.79 FS 28.7 % EDV(Teich) 116.1 ml ESV(Teich) 52.2 ml EF(Teich) 55.0 % EDV(cubed) 122.1 ml ESV(cubed) 44.3 ml EF(cubed) 63.7 % % IVS thick 40.8 % % LVPW thick 73.1 % LV mass(C)d 268.4 grams LV mass(C)dI 99.1 grams/m\S\2 LV mass(C)s 355.1 grams LV mass(C)sI 131.1 grams/m\S\2 SV(Teich) 63.9 ml SI(Teich) 23.6 ml/m\S\2 SV(cubed) 77.8 ml SI(cubed) 28.7 ml/m\S\2 Ao root diam 3.3 cm Ao root area 8.8 cm\S\2 LA dimension 4.1 cm LA/Ao 1.2 LVAd ap4 48.5 cm\S\2 LVLd ap4 10.1 cm EDV(MOD-sp4) 191.0 ml EDV(sp4-el) 197.3 ml LVAs ap4 31.7 cm\S\2 LVLs ap4 8.7 cm ESV(MOD-sp4) 97.6 ml ESV(sp4-el) 97.9 ml EF(MOD-sp4) 48.9 % EF(sp4-el) 50.4 % LVAd ap2 43.9 cm\S\2 LVLd ap2 9.4 cm EDV(MOD-sp2) 167.3 ml EDV(sp2-el) 172.9 ml LVAs ap2 27.0 cm\S\2 LVLs ap2 8.3 cm ESV(MOD-sp2) 74.2 ml ESV(sp2-el) 74.8 ml EF(MOD-sp2) 55.6 % EF(sp2-el) 56.8 % LVLd %diff -7.06 % EDV(MOD-bp) 182.7 ml LVLs %diff -5.14 % ESV(MOD-bp) 86.7 ml EF(MOD-bp) 52.5 % SV(MOD-sp4) 93.3 ml SI(MOD-sp4) 34.5 ml/m\S\2 SV(MOD-sp2) 93.0 ml SI(MOD-sp2) 34.4 ml/m\S\2 SV(MOD-bp) 96.0 ml SI(MOD-bp) 35.4 ml/m\S\2 SV(sp4-el) 99.4 ml SI(sp4-el) 36.7 ml/m\S\2 SV(sp2-el) 98.1 ml SI(sp2-el) 36.2 ml/m\S\2 Doppler Measurements and Calculations MV E max tavon 125.2 cm/sec MV A max tavon 125.7 cm/sec MV E/A 10 MV dec time 0.22 sec Ao V2 max 163.1 cm/sec Ao max PG 10.6 mmHg Ao max PG (full) 5.7 mmHg LV V1 max PG 5.0 mmHg LV V1 max 111.3 cm/sec TR max tavon 331.2 cm/sec
--- NOTE | 2017-04-23 15:46 | Family Medicine Progress Note ---
Progress Note Date of Service Apr 23, 2017. Subjective Pt evaluation today including: conversation w/ patient Reports having worsening generalized edema x 4 months. He came in due to worsening shortness of breath over the last 4 days. Does not want a catheter at this point; will urinate in hat / urinal. Worried about his prognosis/diagnosis. Denies family history of kidney disease / cardiac disease. Denies drug use currently Smokes a ppd h/o unprovoked PE, reports negative hypercoagulable work up. Negative for Hep B, Hep C and HIV in 2016 Constitutional: No fever, No chills Eyes: No worsening of vision ENT: No hearing loss Respiratory: + shortness of breath, + dyspnea on exertion, No cough, No sputum Cardiovascular: No chest pain Abdomen: No pain, No nausea, No vomiting, No diarrhea Male : No dysuria Medications Medications (Trade) Dose Ordered Sig/Silvio Route Start Time Stop Time Status Last Admin Dose Admin Ceftriaxone Sodium (Rocephin Inj) 1 gm NOW STAT IV 04/22/17 18:54 04/22/17 18:55 DC 04/22/17 19:29 1 GM Furosemide (Lasix Inj) 40 mg NOW STAT IV 04/22/17 19:30 04/22/17 19:31 DC 04/22/17 19:42 40 MG Apixaban (Eliquis Tab) 5 mg BID PO 04/22/17 23:45 05/22/17 23:44 04/23/17 07:56 5 MG Furosemide 20 mg/ Syringe 2 ml @ 4 mls/min BID17 IV 04/22/17 23:45 05/22/17 23:44 04/23/17 07:55 4 MLS/MIN Potassium Chloride (Klor-Con M10) 10 meq BID17 PO 04/22/17 23:45 05/22/17 23:44 04/23/17 07:56 10 MEQ Nicotine (Nicoderm Cq 14MG Patch) 1 patch QAM TD 04/23/17 00:45 05/23/17 00:44 04/23/17 01:51 1 PATCH Objective Vital Signs Vital Signs Past 12 Hours Date Time Temp Pulse Resp B/P (MAP) Pulse Ox O2 Delivery O2 Flow Rate FiO2 04/23/17 15:08 36.7 19 169/101 (123) 96 Nasal Cannula 2.0 04/23/17 12:12 36.3 92 161/95 (117) 92 Room Air 04/23/17 12:03 Room Air 04/23/17 08:09 36.9 87 16 195/105 (135) 93 Nasal Cannula 1.0 04/23/17 08:06 95 Room Air Physical Exam General Appearance: no apparent distress, + obese, + pertinent finding ( generalized edema) Eyes: PERRL, EOMI ENT: hearing grossly normal Neck: supple Respiratory/Chest: no respiratory distress, no accessory muscle use, + decreased breath sounds Cardiovascular: regular rate, rhythm Abdomen: normal bowel sounds, non tender, + distended, + pertinent finding ( significant edema) Extremities: + pedal edema, + pertinent finding (significant edema) Neurologic/Psychiatric: alert, oriented x 3 Notes: Scrotal edema Laboratory Results Last 24 Hours Test 04/22/17 16:53 04/22/17 18:25 04/23/17 00:00 04/23/17 07:14 White Blood Count 11.79 K/uL 6.70 K/uL Red Blood Count 3.79 M/uL 3.54 M/uL Hemoglobin 9.9 g/dL 9.0 g/dL Hematocrit 31.1 % 29.3 % Mean Corpuscular Volume 82.1 fL 82.8 fL Mean Corpuscular Hemoglobin 26.1 pg 25.4 pg Mean Corpuscular Hemoglobin Concent 31.8 g/dl 30.7 g/dl Platelet Count 324 K/uL 321 K/uL Mean Platelet Volume 8.6 fL 9.1 fL Neutrophils (%) (Auto) 85.2 % Lymphocytes (%) (Auto) 8.3 % Monocytes (%) (Auto) 5.5 % Eosinophils (%) (Auto) 0.6 % Basophils (%) (Auto) 0.1 % Neutrophils # (Auto) 10.05 K/uL Lymphocytes # (Auto) 0.98 K/uL Monocytes # (Auto) 0.65 K/uL Eosinophils # (Auto) 0.07 K/uL Basophils # (Auto) 0.01 K/uL RDW Standard Deviation 47.4 fL 48.1 fL RDW Coefficient of Variation 16.0 % 15.8 % Immature Granulocyte % (Auto) 0.3 % Immature Granulocyte # (Auto) 0.03 K/uL Prothrombin Time 11.2 SECONDS Prothromb Time International Ratio 1.1 Activated Partial Thromboplast Time 27.3 SECONDS Partial Thromboplastin Ratio 1.1 Sodium Level 142 mmol/L 141 mmol/L Potassium Level 3.8 mmol/L 3.9 mmol/L Chloride Level 110 mmol/L 109 mmol/L Carbon Dioxide Level 26 mmol/L 24 mmol/L Anion Gap 6.0 mmol/L 8.0 mmol/L Blood Urea Nitrogen 22 mg/dl 23 mg/dl Creatinine 2.10 mg/dl 2.01 mg/dl Estimated GFR () 46.9 49.4 Estimated GFR (Non- 40.4 42.6 BUN/Creatinine Ratio 10.5 11.4 Random Glucose 100 mg/dl 84 mg/dl Calcium Level 7.3 mg/dl 7.0 mg/dl Total Bilirubin 0.3 mg/dl Aspartate Amino Transf (AST/SGOT) 23 U/L Alanine Aminotransferase (ALT/SGPT) 12 U/L Alkaline Phosphatase 230 U/L Total Creatine Kinase 46 U/L Creatine Kinase MB 1.3 ng/ml Creatine Kinase MB Ratio 2.8 Troponin I 0.040 ng/ml Pro-B-Type Natriuretic Peptide > 88713 pg/ml > 41994 pg/ml Total Protein 5.5 gm/dl Albumin 1.3 gm/dl Globulin 4.2 gm/dl Albumin/Globulin Ratio 0.3 Hepatitis C Antibody NEG Urine Color BROWN Urine Appearance TURBID Urine pH Urine Specific [place] 1.032 Urine Protein Urine Glucose (UA) Urine Ketones Urine Occult Blood Urine Nitrite Urine Bilirubin Urine Urobilinogen Urine Leukocyte Esterase Urine RBC >30 /hpf Urine WBC >30 /hpf Urine Epithelial Cells >30 /lpf Urine Bacteria 2+ Urine Yeast PRESENT Est Creatinine Clear Calc Drug Dose 82.9 ml/min Magnesium Level 1.8 mg/dl Triglycerides Level 143 mg/dl Cholesterol Level 92 mg/dl HDL Cholesterol 17 mg/dl LDL Cholesterol, Calculated 46 mg/dl VLDL Cholesterol, Calculated 29 mg/dl Cholesterol/HDL Ratio 5.4 Test 04/23/17 10:53 04/23/17 10:54 04/23/17 11:19 Urine Color ORANGE Urine Appearance TURBID Urine pH 5.0 Urine Specific [place] 1.019 Urine Protein 4+ Urine Glucose (UA) NEG Urine Ketones NEG Urine Occult Blood 3+ Urine Nitrite NEG Urine Bilirubin NEG Urine Urobilinogen NEG Urine Leukocyte Esterase MODERATE Urine RBC (Auto) /hpf Urine Hyaline Casts (Auto) /lpf Urine RBC >30 /hpf Urine WBC >30 /hpf Urine Epithelial Cells 0-5 /lpf Urine Bacteria 2+ Urine White Blood Cell Casts 1-5 /lpf Urine Pathogenic Casts /lpf Urine Yeast (Auto) Urine Random Total Protein 1030.0 mg/dl Urine Opiates Screen NEG Urine Methadone, Qualitative NEG Urine Barbiturates NEG Urine Phencyclidine (PCP) Level NEG Ur Amphetamine/Methamphetamine NEG MDMA (Ecstasy) Screen NEG Urine Benzodiazepines Screen NEG Urine Cocaine Metabolite NEG Urine Marijuana (THC) POS Bedside Glucose 89 mg/dl Assessment and Plan 31 y/o M with worsening anasarca, shortness of breath, scrotal edema. on Admission, he was found to have renal insufficiency and hypertension. U/A does show 4+ protein. Renal insufficiency + Anasarca + Proteinuria ? Nephrotic syndrome (infectious? HIV/HEB B pending, Hep C is negative, amyloidosis vs. MM vs. sarcoidosis vs (APCKD - less likely as not visualized on CT), Cardiorenal) Concern for nephropathy given cr of 2.0 + hypoalbuminemia, anasarca, HTN, 4+ proteinuria, + anemia Furosemide [address] evidence of edematous/ enlarged kidneys, enlarged spleen and liver, scrotum 24 hr urine protein collection BMP daily Serology pending, hypercoagulable work up pending. Avoid nephrotoxins Questionable UTI- on Rocephin, culture pending. Cardiology and Nephrology consulted Echo pending HTN: Hydralazine H/O of osteomyelitis/Discitis Records reviewed via [facility] EMR Patient was transferred to [facility] and had IV ABX- sent home with PICC line. No surgical intervention Cr. at the time was normal hep c, b and HIV were negative H/o DVT Records of [facility] requested. Currently on Elaquis DVT proph Elaquis Code: Full Attending Resident Physician Supervision Note: I personally interviewed and examined the patient with resident Dr. Hill I agree with progress note and physical exam mentioned above, I also performed my own encounter and examination. I reviewed all pertinent labs and studies Reviewed current medications I discussed and formulated of the assessment and plan with resident as mentioned above. Please refer to the Summary mentioned below: Progressive worsening shortness of breath, edema, weight gain > 60 pounds: Differential diagnosis is broad, includes a CHF exacerbation, liver cirrhosis, cardiorenal syndrome, nephropathy, Renal insufficiency + Anasarca + Proteinuria, will likely nephrotic syndrome, history of IV drug use, currently hep C is negative, echo was done, LVEF was 45- 50%, severe pulmonary hypertension, dilated IVC filter, history of PE, Uncontrolled PE caused right heart failure is also in the differential diagnosis Discussed with mixing machine feeder, ? Nephrotic syndrome (infectious? HIV/HEB B pending , Hep C is negative, amyloidosis vs. MM vs. sarcoidosis vs (APCKD - less likely as not visualized on CT), Cardiorenal) Has requested cardiology consultation, pulmonology consultation, we will need to discuss transfer to tertiary care center if needed because of severe pulmonary hypertension, will ask device from specialties. Patient currently stable possible on the need outpatient tertiary Medical Center referral Possible nephropathy given cr of 2.0 + hypoalbuminemia, anasarca, HTN, 4+ proteinuria, + anemia Continue furosemide 40 mg daily, 24 hr urine protein collection, BMP daily, In-N -Out, Avoid nephrotoxins , H/o DVT and PE, Records of [facility] requested, Currently on Elaquis Continued [facility] stay due to: multiple IV medications needed Discharge planning: uncertain
[2017-04-23] MEDS: HydrALAZINE HCL 20 MG/ML VIAL IV. PRN ×2 (15:53→23:59)
[2017-04-23] MEDS: CEFTRIAXONE SOD INJ 1 GM in DEXTROSE 5% ADD-VANTAGE 50ML 50 ML IV SCH (20:28)
--- NOTE | 2017-04-23 20:56 | Pulmonary Consultation ---
History General Date of Service: Apr 23, 2017. Stated Complaint: Anasarca, abnormal CT of the chest and possible nephrotic syndrome HPI The patient is a 31 year old male who presents to [facility] with complaints of Anasarca, Pleural Effusion. The patient's primary care provider is Luis Ha D.O.. 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 Current workup WBC [id number] PLT: 321K H/H: 15/42 ESR: >>53 BUN/Cr: 22/2.10 AO: >230 CRP: >>8.4 BNP >18858 ALB: <<1.3 UA: Specific gravity: 1.032, RBCs >30, WBC >30, Bacteria 2+, yeast present Random urine protein: 1030 Tox screen: Positive for marijuana Hepatitis-C antibody negative Echocardiogram 04/23/2017 o LV: EF=45-50%, mild concentric left ventricular hypertrophy o RV: Grossly within normal limits o Atria: Poorly visualized o RSVP >60mmHg o IVC: Dilated with reduced collapsibility CXR interstitial changes, hilar fullness, cardiomegaly, right upper lobe opacification CT chest: Pulmonary edema, subpleural opacifications/atelectasis, 9 mm nodule right upper lobe with adjacent cystic foci, mediastinal hilar enlargement Pending o Globulins, monoclonal antibodies, SPEP, UPEP, urine creatinine, urine protein , urine albumin %, urine globulins, C3, C4, cryoglobulins, HIV, hepatitis-B panel Historian: patient, EMS Review of Systems Constitutional: reports: no symptoms Eyes: reports: no symptoms ENT: reports: no symptoms Cardiovascular: reports: as stated in HPI Respiratory: reports: as stated in HPI Gastrointestinal: reports: as stated in HPI Genitourinary - Male: reports: as stated in HPI Musculoskeletal: reports: no symptoms Integumentary: reports: as stated in HPI Neurologic: reports: no symptoms Psychiatric: reports: no symptoms Endocrine: no symptoms Hematologic / Lymphatic: as stated in HPI Allergic / Immunologic: no symptoms Past Medical History Past Medical History: 1. Osteomyelitis of the lumbar spine/transfer to [facility] 2014 2. 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 Left lower extremity DVT/PE--hospitalized a [facility] in November of 2014 previously treated with Eliquis, per the patient unprovoked--saddle embolism 4. Left lower extremity DVT 5. History of opiate abuse, ground pills and injected via IV 6. Hypertension 7. Morbid obesity 8. Pulmonary hypertension Past Surgical History: 1. Abdominal wall adipose tissue biopsy--adipose tissue within normal limits Family History Hypertension Hypertension Social History Occupation: Chief Tobacco: 15 year history of 1 pack per day Alcohol: No use Drug: Previous IV drug user/opiate pills Status: Single Hx Tobacco Use In Past Year?: Yes Smoking Status: Current Every Day Smoker Marital status: single Occupational Status: unemployed Allergies Coded Allergies: No Known Allergies (Unverified , 04/22/17) Current Medications Reported Home Medications Medications Dose Route/Sig Max Daily Dose Days Date Category Eliquis (Apixaban) 5 Mg Tab 5 Mg PO BID 03/04/15 Reported Physical Physical Exam Vital Signs: Date Time Temp Pulse Resp B/P (MAP) Pulse Ox O2 Delivery O2 Flow Rate FiO2 04/23/17 19:15 36.9 97 20 158/96 (116) 94 Room Air 04/23/17 16:40 181/82 (115) 04/23/17 16:03 96 Room Air 04/23/17 15:08 36.7 19 169/101 (123) 96 Nasal Cannula 2.0 04/23/17 12:12 36.3 92 161/95 (117) 92 Room Air 04/23/17 12:03 Room Air 04/23/17 08:09 36.9 87 16 195/105 (135) 93 Nasal Cannula 1.0 04/23/17 08:06 95 Room Air 04/23/17 04:00 Nasal Cannula 2.0 04/23/17 03:26 36.7 91 18 141/93 (109) 94 Nasal Cannula 1.5 04/22/17 23:59 Nasal Cannula 2.0 04/22/17 22:51 36.7 102 20 180/103 95 Nasal Cannula 2.0 04/22/17 22:01 88 04/22/17 21:56 88 20 160/107 96 Nasal Cannula 4.0 04/22/17 20:46 96 22 177/100 96 Nasal Cannula 3.0 General Appearance: NO APPARENT DISTRESS Head: NORMOCEPHALIC, ATRAUMATIC Eyes: PERRLA, NO DISCHARGE, EOMI, SCLERAE NORMAL ENT: NORMAL EAR EXAM, NORMAL NASAL EXAM, NORMAL MOUTH EXAM, NORMAL THROAT EXAM Neck: NORMAL RANGE OF MOTION, NO TENDERNESS, TRACHEA MIDLINE, NO STRIDOR Respiratory: other (Mild crackles at the bases but clear to auscultation at the apices) Cardiovasular: REGULAR RATE/RHYTHM, NORMAL S1S2, NO M/G/R Abdomen: other (Soft obese, no rebound tenderness, notable pitting edema in the lower 1/3, was unable to appreciate for periumbilical hernia) Genitourinary - Male: other (Notably swollen genitalia/grown) Back: NORMAL INSPECTION, NO MIDLINE TENDERNESS, NO CVA TENDERNESS Upper Extremities: NO EDEMA, NO DEFORMITY, NORMAL ROM Lower Extremities: edema Edema: Bilateral LE (3+) Pulses: carotid (R) (2+), carotid (L) (2+), femoral (R) (1+), femoral (L) (1+) Neuro: ALERT, ORIENTED x 3, NORMAL MOTOR EXAM, NORMAL SENSATION, NORMAL CEREBELLAR EXAM Reflexes: biceps (R) (2+), bicpes (L) (2+), patellar (R) (1+), patellar (L) (1+ ) Babinski Testing: right (downgoing), left (downgoing) Psychiatric: flat affect Diagnostics Labs Results Past 24 Hours Test 04/23/17 00:00 04/23/17 07:14 04/23/17 10:53 04/23/17 10:54 Range/Units White Blood Count 6.70 4.8-10.8 K/uL Red Blood Count 3.54 4.7-6.1 M/uL Hemoglobin 9.0 14.0-18.0 g/dL Hematocrit 29.3 42-52 % Mean Corpuscular Volume 82.8 80-100 fL Mean Corpuscular Hemoglobin 25.4 25-34 pg Mean Corpuscular Hemoglobin Concent 30.7 32-36 g/dl RDW Standard Deviation 48.1 36.4-46.3 fL RDW Coefficient of Variation 15.8 11.5-14.5 % Platelet Count 321 130-400 K/uL Mean Platelet Volume 9.1 7.4-10.4 fL Sodium Level 141 136-145 mmol/L Potassium Level 3.9 3.5-5.1 mmol/L Chloride Level 109 98-107 mmol/L Carbon Dioxide Level 24 21-32 mmol/L Anion Gap 8.0 3-11 mmol/L Blood Urea Nitrogen 23 7-18 mg/dl Creatinine 2.01 0.60-1.40 mg/dl Est Creatinine Clear Calc Drug Dose 82.9 ml/min Estimated GFR () 49.4 Estimated GFR (Non- 42.6 BUN/Creatinine Ratio 11.4 10-20 Random Glucose 84 70-99 mg/dl Calcium Level 7.0 8.5-10.1 mg/dl Magnesium Level 1.8 1.8-2.4 mg/dl Pro-B-Type Natriuretic Peptide > 68831 0-450 pg/ml Triglycerides Level 143 0-150 mg/dl Cholesterol Level 92 0-200 mg/dl HDL Cholesterol 17 mg/dl LDL Cholesterol, Calculated 46 mg/dl VLDL Cholesterol, Calculated 29 mg/dl Cholesterol/HDL Ratio 5.4 Urine Color ORANGE Urine Appearance TURBID CLEAR Urine pH 5.0 4.5-7.5 Urine Specific [place] 1.019 1.000-1.030 Urine Protein 4+ NEG Urine Glucose (UA) NEG NEG Urine Ketones NEG NEG Urine Occult Blood 3+ NEG Urine Nitrite NEG NEG Urine Bilirubin NEG NEG Urine Urobilinogen NEG NEG Urine Leukocyte Esterase MODERATE NEG Urine RBC (Auto) 0-4 /hpf Urine Hyaline Casts (Auto) 0-5 /lpf Urine RBC >30 0-4 /hpf Urine WBC >30 0-5 /hpf Urine Epithelial Cells 0-5 0-5 /lpf Urine Bacteria 2+ NEG Urine White Blood Cell Casts 1-5 0 /lpf Urine Pathogenic Casts 0 /lpf Urine Yeast (Auto) NONE PRSENT Urine Random Total Protein 1030.0 0-11.9 mg/dl Urine Opiates Screen NEG NEG Urine Methadone, Qualitative NEG NEG Urine Barbiturates NEG NEG Urine Phencyclidine (PCP) Level NEG NEG Ur Amphetamine/Methamphetamine NEG NEG MDMA (Ecstasy) Screen NEG NEG Urine Benzodiazepines Screen NEG NEG Urine Cocaine Metabolite NEG NEG Urine Marijuana (THC) POS NEG Test 04/23/17 11:19 Range/Units Bedside Glucose 89 70-99 mg/dl Diagnostic Radiology CXR interstitial changes, hilar fullness, cardiomegaly, right upper lobe opacification CT chest: Pulmonary edema, subpleural opacifications/atelectasis, 9 mm nodule right upper lobe with adjacent cystic foci, mediastinal hilar enlargement EKG Interpretation: NORMAL EKG Impression Assessment and Plan 31-year-old gentleman with global anasarca, possible nephrotic syndrome, history of pulmonary embolism and pulmonary hypertension: 1. Mediastinal and Hilar Adenopathy: At this time is difficult to determine with the patient's adenopathy is reactive and/or part of the primary process. This adenopathy is amenable to EBUS evaluation the prior to this I would suggest we obtain a right heart catheterization as diagnostic bronchoscopy and general anesthesia can be complicated by known pulmonary hypertension. 2. Pulmonary Embolism: There is no definitive etiology for the patient's initial pulmonary hypertension. I would like to be able to review the previous EMR at [facility]. At this time the patient had a provoked pulmonary embolism and it appears was subsequently taken off anticoagulation. The patient is poorly informed of his overall health and the etiology/treatment for this disease. I do agree at this time with continuing the patient's apixaban but we may have to change this as the differential diagnosis is narrowing and possibly the underlying etiology of this patient's disease is determined. The NOAQs are notably excellent for pulmonary embolisms but have not been fully evaluated and multiple diseases such as lupus/vascular disorders or carcinomas. Also the have not been fully evaluated in patients with morbid obesity. 3. Pulmonary Hypertension: I would like to contact Dr. Kemar Miranda for right heart catheterization for full understanding of this patient's current intrathoracic pressures. This patient could have multiple etiologies for his pulmonary hypertension such as chronic thromboembolic disease, hereditary hyper homocystinemia with associated nephrotic syndrome, primary nephrotic syndrome/ minimal change disease has also been associated with increased thrombotic events. At this time I will add a homocystine level to the patient's current workup.
--- NOTE | 2017-04-23 23:57 | CARDIOLOGY CONSULTATION ---
DATE OF CONSULTATION: 04/23/2017 CONSULT REQUESTED BY: Roddy Grigsby MD. REASON FOR CONSULTATION: Heart failure, pulmonary hypertension. HISTORY OF PRESENT ILLNESS: Mr. Gallardo is a 31-year-old man with a history of prior unprovoked DVT, PE, morbid obesity, prior IV drug use, prior L4-L5 osteomyelitis and psoas abscess upset who was admitted in the setting of progressive lower extremity/scrotal edema with difficulty ambulating. The patient states that he has had worsening edema over the last 5 months. Over the last week or so, symptoms gotten to the point where he has been unable to carry out his job and walk short distances. The patient denies significant shortness of breath, chest pain, palpitations. Denies orthopnea or PND. He has no prior cardiac history. His prior PE was diagnosed back in November of 2014. He was treated with anticoagulation for what sounds to be a year. More recently has been back on apixaban in the setting of some lower extremity erythema months ago. On presentation, the patient was noted to have anasarca. He was noted to have renal insufficiency with a creatinine up to 2.1 and a UA remarkable for significant proteinuria with an albumin of 1.3. CT scan of his chest showed mild interstitial edema with mild pleural effusions. Cardiac enzymes were negative. His EKG was unremarkable. The patient underwent echocardiogram today which showed mild dysfunction to low normal LV systolic function with questionable inferior wall motion abnormality. His RV was not well visualized but appeared to be grossly normal in size. His left atrium was not dilated but he was noted to have severe pulmonary hypertension with an estimated PASP of 65-70. His IVC was dilated with an RA of 15. PAST MEDICAL HISTORY: 1. History of unprovoked DVT/PE in 2014. 2. History of IV opioid abuse. 3. History of prior L4-L5 osteomyelitis. 4. History of morbid obesity. 5. Ongoing tobacco abuse. PAST SURGICAL HISTORY: Prior PICC line placement but no other surgeries required. ALLERGIES: No known drug allergies. FAMILY HISTORY: No family history of premature coronary disease or sudden cardiac . SOCIAL HISTORY: He smokes 1 pack per day. Denies any illicit drug use currently. He is single. 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 REVIEW OF SYSTEMS: Ten-point review of systems completed and otherwise negative unless mentioned in the HPI. PHYSICAL EXAMINATION: VITAL SIGNS: Temperature 36.7, pulse of 92, blood pressure 169/101. He is satting 96% on room air. GENERAL: The patient is obese but appears comfortable in no acute distress. HEENT: Sclerae are anicteric. Oropharynx is clear. NECK: Supple. Jugular veins were difficult to assess. LUNGS: Clear with just scant crackles at the left base bilaterally. HEART: He is regular with no appreciable murmurs. ABDOMEN: Soft, obese, and nontender. EXTREMITIES: Diffuse 2-3+ lower extremity edema to his thighs and involving his scrotum. Intact capillary refill distal with diminished distal pulses. SKIN: Shows no rashes or lesions. NEUROLOGIC: Nonfocal. LABORATORY DATA: BUN 23, creatinine of 2.0. His ProBNP was greater than 35,000. His albumin was 1.3. Total cholesterol of 92. Triglycerides of 143. LDL of 46, HDL of 17. Hemoglobin of 9, platelets of 321. His UA was remarkable for marijuana. UA showed 4+ protein as well as 3+ rbcs and elevated white blood cells. IMAGING: Chest CT showed mild interstitial pulmonary edema, small bilateral pleural effusions and right hilar enlargement. CT scan of the abdomen showed marked mild bilateral renal enlargement, moderate splenomegaly and hepatomegaly and marked scrotal edema. Presenting EKG showed sinus rhythm with nonspecific ST changes but otherwise, unremarkable. Echo as described in the HPI. IMPRESSION AND PLAN: 1. Diffuse severe edema, anasarca. 2. Severe pulmonary hypertension. 3. Right-sided heart failure. 4. Renal insufficiency. 5. Proteinuria/hypoalbuminemia and suspected glomerulonephritis. 6. Borderline wall motion abnormality on echo. 7. Morbid obesity with suspected sleep disordered breathing. 7. History of prior deep venous thrombosis and pulmonary embolism. Mr. Gallardo is here with progressive edema/anasarca in the setting of renal insufficiency and proteinuria with concern for possible glomerulonephritis/nephrotic syndrome. In addition, echocardiogram suggests severe pulmonary hypertension with elevated CVP. Concern for pulmonary hypertension and right-sided heart failure contributing to current symptoms. Etiology of suspected pulmonary hypertension is unclear, but some suspicion for chronic thromboembolic pulmonary hypertension with patient's history of prior saddle PE. The patient also being evaluated for possible unifying rheumatologic/ infectious causes as well and likely some contribution from possible obstructive sleep apnea. On echo left atrium normal in size and no evidence of left-sided heart failure, Going forward recommend confirmation of pulmonary pressures by right heart catheterization at some point. If PH confirmed would consider obtaining a VQ scan to further evaluate for chronic thromboembolic disease. Would continue anticoagulation with apixaban for now and diuretics, antihypertensives per nephrology. We will continue to follow while in the hospital. Thank you for consultation. THIEN
[2017-04-24] VITALS (8 sets, daily range): BP systolic 164–198; BP diastolic 95–113; PULSE 91–191; TEMP 36.3–36.8; O2SAT 91–96
[2017-04-24 07:07] LABS: BASO % 0.3 %; BASO ABS # 0.02 K/uL (0-0.2); EOS % 1.8 %; EOS ABS # 0.13 K/uL (0-0.5); HEMATOCRIT 30.6 % (42-52); HEMOGLOBIN 9.7 g/dL (14.0-18.0); IG# 0.03 K/uL (0.00-0.02); LYMPH % 24.9 %; LYMPH ABS # 1.77 K/uL (1.2-3.4); MEAN CELL VOLUME 81.2 fL (80-100); MEAN CORPUSCULAR HEMOGLOBIN 25.7 pg (25-34); MEAN CORPUSCULAR HGB CONC 31.7 g/dl (32-36); MEAN PLATELET VOLUME 8.9 fL (7.4-10.4); MONO % 8.7 %; MONO ABS # 0.62 K/uL (0.11-0.59); NEUT % 63.9 %; NEUT ABS # 4.55 K/uL (1.4-6.5); PLATELET COUNT 374 K/uL (130-400); RED CELL DISTRIBUTION WIDTH CV 16.2 % (11.5-14.5); RED CELL DISTRIBUTION WIDTH SD 47.7 fL (36.4-46.3); WHITE BLOOD COUNT 7.12 K/uL (4.8-10.8)
[2017-04-24] MEDS: HydrALAZINE HCL 20 MG/ML VIAL IV. PRN ×3 (07:38→22:11)
[2017-04-24] MEDS: APIXABAN 2.5 MG TAB PO SCH (07:40)
[2017-04-24] MEDS: NICOTINE 14 MG/24 HR TDSY TD SCH (07:40)
[2017-04-24] MEDS: FUROSEMIDE INJ 20 MG in SYRINGE 0 ML IV SCH (07:40)
[2017-04-24] MEDS: POTASSIUM CHLORIDE 10 MEQ TABCR PO SCH ×2 (07:41→16:00)
[2017-04-24 07:44] LABS: ALBUMIN 1.2 gm/dl (3.4-5.0); CALCIUM 7.1 mg/dl (8.5-10.1); CREATININE 1.86 mg/dl (0.60-1.40); POTASSIUM 3.8 mmol/L (3.5-5.1)
[2017-04-24 07:45] LABS: PHOSPHORUS 4.7 mg/dl (2.5-4.9)
[2017-04-24] MEDS ORDERED: FUROSEMIDE INJ 20 MG in SYRINGE 0 ML IV SCH (09:15)
[2017-04-24] MEDS ORDERED: NURSING VERBAL MED ORDER ONE ×3 (09:45→22:00)
--- NOTE | 2017-04-24 09:49 | Family Medicine Progress Note ---
Progress Note Date of Service Apr 24, 2017. Subjective Pt evaluation today including: conversation w/ patient Reports not urinating much since being on the diuretic- would really like to get the fluid off. Worried about his diagnosis/anxious Constitutional: No fever, No chills Eyes: No worsening of vision ENT: No hearing loss Respiratory: + shortness of breath, + dyspnea on exertion, No cough, No sputum Cardiovascular: No chest pain Abdomen: No pain, No nausea, No vomiting, No diarrhea Male : No dysuria, No urinary frequency Medications Medications (Trade) Dose Ordered Sig/Silvio Route Start Time Stop Time Status Last Admin Dose Admin Ceftriaxone Sodium 1 gm/ Dextrose 50 ml @ 100 mls/hr Q24H IV 04/23/17 20:00 04/28/17 19:59 04/23/17 20:28 100 MLS/HR Miscellaneous (Remove Nicoderm Patch) 1 ea HS N/A 04/23/17 21:00 05/23/17 20:59 04/23/17 20:28 1 EA Hydralazine HCl (Apresoline Tab) 50 mg TID PO 04/23/17 14:00 04/24/17 07:27 DC 04/23/17 20:28 50 MG Objective Vital Signs Vital Signs Past 12 Hours Date Time Temp Pulse Resp B/P (MAP) Pulse Ox O2 Delivery O2 Flow Rate FiO2 04/24/17 07:45 36.3 96 24 194/98 (130) 92 Room Air 04/24/17 04:00 Room Air 04/24/17 03:37 36.7 102 18 176/101 (126) 91 04/24/17 00:01 36.7 91 20 164/97 (119) 94 04/23/17 23:59 Room Air Physical Exam General Appearance: no apparent distress, + obese, + pertinent finding ( Generalized edema) Eyes: PERRL, EOMI ENT: hearing grossly normal Neck: supple, + JVD Respiratory/Chest: no respiratory distress, no accessory muscle use, + decreased breath sounds Cardiovascular: regular rate, rhythm, no murmur Abdomen: normal bowel sounds, + distended, + pertinent finding (2+ pitting edema) Extremities: + pedal edema, + pertinent finding (2+ pitting edema) Neurologic/Psychiatric: alert, + depressed affect Laboratory Results Last 24 Hours Test 2/17/18 10:53 04/23/17 10:54 04/23/17 11:19 04/24/17 06:33 Urine Color ORANGE Urine Appearance TURBID Urine pH 5.0 Urine Specific [place] 1.019 Urine Protein 4+ Urine Glucose (UA) NEG Urine Ketones NEG Urine Occult Blood 3+ Urine Nitrite NEG Urine Bilirubin NEG Urine Urobilinogen NEG Urine Leukocyte Esterase MODERATE Urine RBC (Auto) /hpf Urine Hyaline Casts (Auto) /lpf Urine RBC >30 /hpf Urine WBC >30 /hpf Urine Epithelial Cells 0-5 /lpf Urine Bacteria 2+ Urine White Blood Cell Casts 1-5 /lpf Urine Pathogenic Casts /lpf Urine Yeast (Auto) Urine Random Total Protein 1030.0 mg/dl Urine Opiates Screen NEG Urine Methadone, Qualitative NEG Urine Barbiturates NEG Urine Phencyclidine (PCP) Level NEG Ur Amphetamine/Methamphetamine NEG MDMA (Ecstasy) Screen NEG Urine Benzodiazepines Screen NEG Urine Cocaine Metabolite NEG Urine Marijuana (THC) POS Bedside Glucose 89 mg/dl HIV (1&2) Ab and P24 Ag, 4th Gener NEG Test 04/24/17 06:46 White Blood Count 7.12 K/uL Red Blood Count 3.77 M/uL Hemoglobin 9.7 g/dL Hematocrit 30.6 % Mean Corpuscular Volume 81.2 fL Mean Corpuscular Hemoglobin 25.7 pg Mean Corpuscular Hemoglobin Concent 31.7 g/dl Platelet Count 374 K/uL Mean Platelet Volume 8.9 fL Neutrophils (%) (Auto) 63.9 % Lymphocytes (%) (Auto) 24.9 % Monocytes (%) (Auto) 8.7 % Eosinophils (%) (Auto) 1.8 % Basophils (%) (Auto) 0.3 % Neutrophils # (Auto) 4.55 K/uL Lymphocytes # (Auto) 1.77 K/uL Monocytes # (Auto) 0.62 K/uL Eosinophils # (Auto) 0.13 K/uL Basophils # (Auto) 0.02 K/uL RDW Standard Deviation 47.7 fL RDW Coefficient of Variation 16.2 % Immature Granulocyte % (Auto) 0.4 % Immature Granulocyte # (Auto) 0.03 K/uL Sodium Level 141 mmol/L Potassium Level 3.8 mmol/L Chloride Level 110 mmol/L Carbon Dioxide Level 22 mmol/L Anion Gap 9.0 mmol/L Blood Urea Nitrogen 26 mg/dl Creatinine 1.86 mg/dl Est Creatinine Clear Calc Drug Dose 89.6 ml/min Estimated GFR () 54.3 Estimated GFR (Non- 46.8 BUN/Creatinine Ratio 13.9 Random Glucose 86 mg/dl Calcium Level 7.1 mg/dl Phosphorus Level 4.7 mg/dl Albumin 1.2 gm/dl Hepatitis B Surface Antibody NEG Assessment and Plan 31 y/o M with worsening anasarca, shortness of breath, scrotal edema. On Admission, he was found to have renal insufficiency and hypertension. U/A does show 4+ protein. Renal insufficiency + Anasarca + Significant Proteinuria Likely Nephrotic syndrome (infectious? HIV/HEB B negative, Hep C is negative, amyloidosis vs. MM vs. sarcoidosis vs (APCKD - less likely as not visualized on CT), Cardiorenal) Concern for nephropathy given cr of 2.0 + hypoalbuminemia, anasarca, HTN, 4+ proteinuria, + anemia, + H/o of reportedly unprovoked PE Furosemide increased to 40 mg BID 24 hr urine protein collection- > 45379 gm of protein BMP daily- improvement noted in renal function. Lab studies/Imaging: Urine drug screen +'ve for marijuana Hep C and B negative HIV negative SPEP, UPEP, C3C4, Cryoglobulins, globulins pending Echocardiogram 04/23/2017 LV: EF=45-50%, mild concentric left ventricular hypertrophy, PAP-65-[address] evidence of edematous/ enlarged kidneys, enlarged spleen and liver, scrotum Avoid nephrotoxins Questionable UTI- on Rocephin, culture pending. Consults: Cardiology, Nephrology, pulmonary consulted- appreciate [facility] Cardiology recommends Right heart Cath due to significantly elevated right Pulmonology consulted - Discussion about doing a V/Q scan vs. CT angio to rule out current clots (supposedly was restarted on Elaquis by PCP recently when Lower extremity edema was reported by patient) but may be difficult or non- diagnostic. LE dopplers ordered. Eliquis held. Choice of anticoagulant to be determined Nephrology- Considering kidney biopsy Severe pulmonary hypertension Likely a component of untreated Sleep Apnea- overnight pulse ox study ?right heart strain from PE (previous vs. chronic/recurrent)- resulting in increased pressures HTN: Hydralazine 75 mg QID H/O of osteomyelitis/Discitis Records reviewed via [facility] EMR [place] [facility] [place]- sent home with PICC line. No surgical intervention Cr. at the time was normal hep c, b and HIV were negative H/o DVT Records of [facility] requested. - hypercoagulable work up was negative then. Currently on Elaquis- held for possible renal biopsy and also probably not effective in patient given morbid obesity. Heparin an option. Good possibility of recurrent PE/DVT with nephrotic syndrome and increased thromboembolic state. Code: Full Attending Resident Physician Supervision Note: I personally interviewed and examined the patient with resident Dr. Hill I agree with progress note and physical exam mentioned above, I also performed my own encounter and examination. I reviewed all pertinent labs and studies Reviewed current medications I discussed and formulated of the assessment and plan with resident as mentioned above. Please refer to the Summary mentioned below: Progressive worsening shortness of breath, edema, weight gain > 60 pounds, associated with hypoalbuminemia, hypertension and renal insufficiency Nephrosis syndrome with urine protein 11 g/daily, differential diagnosis is broad, glomerulonephritis, multiple myeloma, HIV, are in the differential diagnosis, he was having IV drug use history, hepatitis panel is negative, nephrology planning for renal biopsy, continue Lasix, input and output, renal diet, avoid renal offensive medication such as DAVID inhibitor and NSAID For accelerated hypertension, has been difficult to control even continue to increase hydralazine scheduled dose and IV push as needed , increase hydralazine to 100 mg p.o. 3 times daily, add Amlodipine Possible systolic CHF exacerbation with LVEF was 45-50% and right heart failure , which may have contributed to fluid overload History of DVT and PE, and has been on Eliquis for treatment for possible DVT just because of lower extremity swelling, for if he really has DVT is unclear, for now alcoholic counselor is planning to have renal biopsy, I agreed to hold Eliquis for now, further evaluation of DVT and PE need to be planned as next step, will use heparin subcu for DVT prophylaxis severe pulmonary hypertension, Cardiology pulmonology appreciated, hold right Heart cath for now Continued [facility] stay due to: multiple IV medications needed Discharge planning: home
--- NOTE | 2017-04-24 10:17 | Nephrology Progress Note ---
Nephrology Progress Note Date of Service Apr 24, 2017. Chief Complaint Nephrosis Subjective No acute events overnight. Star has not noticed any improvement in his edema. He denies any urinary complaints. He denies significant dyspnea at rest. No fevers or chills. Review of Systems A complete review of systems was performed. Pertinent positives are noted above. All other systems are negative. Vital Signs Last 8 Hrs Date Time Temp Pulse Resp B/P (MAP) Pulse Ox O2 Delivery O2 Flow Rate FiO2 04/24/17 07:45 36.3 96 24 194/98 (130) 92 Room Air 04/24/17 04:00 Room Air 04/24/17 03:37 36.7 102 18 176/101 (126) 91 Last Recorded Weight Weight (Kilograms): 171.700 Physical Exam General Appearance: no apparent distress, + obese Head: normocephalic, atraumatic Eyes: normal inspection, sclerae normal ENT: normal ENT inspection, pharynx normal Neck: supple, + JVD, + pertinent finding (thick) Cardiovascular: regular rate, rhythm, no gallop, no murmur Abdomen/GI: non tender, soft, + pertinent finding (obese, abdominal wall edema) Genitourinary - Male: + pertinent finding (scrotal edema unchanged) Extremities/Musculoskelatal: + pertinent finding (generalized edema unchanged) Neurologic/Psych: alert, + depressed affect Family History Hypertension Social History Drug Use: none Marital Status: single Occupation: unemployed Laboratory Results Past 24 Hours 04/24/17 06:46 Red Blood Count 3.77, Mean Corpuscular Volume 81.2, Mean Corpuscular Hemoglobin 25.7, Mean Corpuscular Hemoglobin Concent 31.7, Mean Platelet Volume 8.9, Neutrophils (%) (Auto) 63.9, Lymphocytes (%) (Auto) 24.9, Monocytes (%) (Auto) 8.7, Eosinophils (%) (Auto) 1.8, Basophils (%) (Auto) 0.3, Neutrophils # (Auto) 4.55, Lymphocytes # (Auto) 1.77, Monocytes # (Auto) 0.62, Eosinophils # (Auto) 0.13, Basophils # (Auto) 0.02 04/24/17 06:46 Test 04/23/17 10:53 04/23/17 10:54 04/23/17 11:19 04/24/17 06:33 Urine Color ORANGE Urine Appearance TURBID (CLEAR) Urine pH 5.0 (4.5-7.5) Urine Specific [place] 1.019 (1.000-1.030) Urine Protein 4+ (NEG) Urine Glucose (UA) NEG (NEG) Urine Ketones NEG (NEG) Urine Occult Blood 3+ (NEG) Urine Nitrite NEG (NEG) Urine Bilirubin NEG (NEG) Urine Urobilinogen NEG (NEG) Urine Leukocyte Esterase MODERATE (NEG) Urine RBC (Auto) /hpf (0-4) Urine Hyaline Casts (Auto) /lpf (0-5) Urine RBC >30 /hpf (0-4) Urine WBC >30 /hpf (0-5) Urine Epithelial Cells 0-5 /lpf (0-5) Urine Bacteria 2+ (NEG) Urine White Blood Cell Casts 1-5 /lpf (0) Urine Pathogenic Casts /lpf (0) Urine Yeast (Auto) (NONE PRSENT) Urine Random Total Protein 1030.0 mg/dl (0-11.9) Urine Opiates Screen NEG (NEG) Urine Methadone, Qualitative NEG (NEG) Urine Barbiturates NEG (NEG) Urine Phencyclidine (PCP) Level NEG (NEG) Ur Amphetamine/Methamphetamine NEG (NEG) MDMA (Ecstasy) Screen NEG (NEG) Urine Benzodiazepines Screen NEG (NEG) Urine Cocaine Metabolite NEG (NEG) Urine Marijuana (THC) POS (NEG) Bedside Glucose 89 mg/dl (70-99) HIV (1&2) Ab and P24 Ag, 4th Gener NEG (NEG) Test 04/24/17 06:46 White Blood Count 7.12 K/uL (4.8-10.8) Red Blood Count 3.77 M/uL (4.7-6.1) Hemoglobin 9.7 g/dL (14.0-18.0) Hematocrit 30.6 % (42-52) Mean Corpuscular Volume 81.2 fL (80-100) Mean Corpuscular Hemoglobin 25.7 pg (25-34) Mean Corpuscular Hemoglobin Concent 31.7 g/dl (32-36) Platelet Count 374 K/uL (130-400) Mean Platelet Volume 8.9 fL (7.4-10.4) Neutrophils (%) (Auto) 63.9 % Lymphocytes (%) (Auto) 24.9 % Monocytes (%) (Auto) 8.7 % Eosinophils (%) (Auto) 1.8 % Basophils (%) (Auto) 0.3 % Neutrophils # (Auto) 4.55 K/uL (1.4-6.5) Lymphocytes # (Auto) 1.77 K/uL (1.2-3.4) Monocytes # (Auto) 0.62 K/uL (0.11-0.59) Eosinophils # (Auto) 0.13 K/uL (0-0.5) Basophils # (Auto) 0.02 K/uL (0-0.2) RDW Standard Deviation 47.7 fL (36.4-46.3) RDW Coefficient of Variation 16.2 % (11.5-14.5) Immature Granulocyte % (Auto) 0.4 % Immature Granulocyte # (Auto) 0.03 K/uL (0.00-0.02) Anion Gap 9.0 mmol/L (3-11) Est Creatinine Clear Calc Drug Dose 89.6 ml/min Estimated GFR () 54.3 Estimated GFR (Non- 46.8 BUN/Creatinine Ratio 13.9 (10-20) Calcium Level 7.1 mg/dl (8.5-10.1) Phosphorus Level 4.7 mg/dl (2.5-4.9) Albumin 1.2 gm/dl (3.4-5.0) Hepatitis B Surface Antibody NEG Allergies Coded Allergies: No Known Allergies (Unverified , 04/22/17) Medications Current Inpatient Medications Medications (Trade) Dose Ordered Sig/Silvio Route Start Time Stop Time Status Last Admin Dose Admin Ioversol (Optiray 320) 100 ml UD PRN IV 04/22/17 17:15 04/26/17 17:14 Apixaban (Eliquis Tab) 5 mg BID PO 04/22/17 23:45 05/22/17 23:44 04/24/17 07:40 5 MG Ceftriaxone Sodium 1 gm/ Dextrose 50 ml @ 100 mls/hr Q24H IV 04/23/17 20:00 04/28/17 19:59 04/23/17 20:28 100 MLS/HR Acetaminophen (Tylenol Tab) 650 mg Q4H PRN PO 04/22/17 21:00 05/22/17 20:59 Al Hydrox/Mg Hydrox/Simethicone (Maalox Max Susp) 15 ml Q4H PRN PO 04/22/17 21:00 05/22/17 20:59 Magnesium Hydroxide (Milk Of Magnesia Susp) 30 ml Q12H PRN PO 04/22/17 21:00 05/22/17 20:59 Ondansetron HCl (Zofran Inj) 4 mg Q6H PRN IV 04/22/17 21:00 05/22/17 20:59 Polyethylene (Miralax Powder Packet) 17 gm DAILY PRN PO 04/22/17 21:00 05/22/17 20:59 Potassium Chloride (Klor-Con M10) 10 meq BID17 PO 04/22/17 23:45 05/22/17 23:44 04/24/17 07:41 10 MEQ Nicotine (Nicoderm Cq 14MG Patch) 1 patch QAM TD 04/23/17 00:45 05/23/17 00:44 04/24/17 07:40 1 PATCH Miscellaneous (Remove Nicoderm Patch) 1 ea HS N/A 04/23/17 21:00 05/23/17 20:59 04/23/17 20:28 1 EA Hydralazine HCl (HydrALAZINE INJ) 20 mg Q6 PRN IV. 04/23/17 09:15 05/23/17 09:14 04/24/17 07:38 20 MG Hydralazine HCl (Apresoline Tab) 75 mg TID PO 04/24/17 09:00 05/23/17 13:59 Furosemide 20 mg/ Syringe 2 ml @ 4 mls/min TODAY@0915 IV 04/24/17 09:15 04/24/17 14:00 Furosemide 40 mg/ Syringe 4 ml @ 4 mls/min BID IV 04/24/17 21:00 05/24/17 20:59 Miscellaneous Information (Nursing Verbal Med Order) 1 ea ONE ONCE N/A 04/24/17 09:45 04/24/17 09:46 UNV Impression (1) Renal insufficiency (2) Proteinuria (3) Anasarca (4) Hypoalbuminemia (5) Anemia Star is a 31 year-old male presenting with anasarca including significant scrotal edema. Presentation notable for hypoalbuminemia, hypertension and renal insufficiency. He is non oliguric. Creatinine stable at 1.8-2.0 mg/dL. UA is notable for 4+ protein. Urine is notable for 30+ WBC, 30+ RBC and 2+ bacteria. Urine culture is pending. He is on empiric treatment with ceftriaxone. A 24 hour urine collection will be complete this morning. CT scan of the chest, abdomen and pelvis documented enlarged but otherwise structurally normal kidneys with diffuse edema as well as enlargement of the liver and spleen. Hilar adenopathy is also appreciated. TTE documented significant pulmonary hypertension with an elevated RA pressure and dilated IVC. Pulmonary and cardiology consults were reviewed. Primary goal at this time remains diuresis. Past medical history is notable for a history of DVT/PE, chronic anticoagulation with Eliquis, obesity, history of IV drug abuse, history of spinal osteomyelitis. Clinical presentation is concerning for a progressive glomerulopathy. The patient has stigmata of nephrosis with notable proteinuria and hypoalbuminemia. Medical history suggests risk factors for secondary FSGS or MPGN. I cannot exclude other etiologies such as membranous or minimal change. Less likely would be an infiltrative process. Nephrosis from sarcoidosis would be atypical. Clinical presentation is not consistent with warfarin nephropathy (which can be associated with Eliquis) or AIN. As Dr. Frank pointed out, use of Eliquis in patients with morbid obesity has not been well studied. Additionally, if the patient does in fact have nephrotic syndrome, the use of NOACs is not well studied in this setting. It is reasonable to continue for now while acknowledging that it may need to be held ( at least 24-48 hours) for a kidney biopsy and that alternative therapies may be considered in the future if felt necessary. Additional records from [facility] were reviewed this morning. Documentation suggests that hypercoagulable work up was negative in the past but I have not seen results of any testing performed. This work up does not seem to have been performed at [facility] [place]. Records document a serum creatinine of <1 mg/dL in 2016. Interestingly, the patient apparently underwent abdominal fat pad biopsy in the past. Additional records from the PCP will be helpful. Recommendations Nephrosis: -- Continue furosemide to encourage net negative fluid balance (furosemide increased to 40 mg twice daily this morning, may need to continue to increase as needed) -- Sodium restrict diet -- Monitor metabolic profile daily -- 24 hour urine for protein is in process -- Once proteinuria confirmed, may need to consider renal biopsy -- SPEP/immunofixation pending -- HIV pending -- Hepatitis serologies negative -- Avoid NSAIDS -- Hold DAVID/ARB option for now Hypertension: -- Hydralazine increased to 75 mg TID -- Increase diuretics -- DAVID held pending trending of creatinine Pyuria: -- Currently on ceftriaxone for possible UTI -- Culture pending Hematuria, gross: -- Etiology unclear - possibly cystitis -- Appears to be improving
--- NOTE | 2017-04-24 12:26 | Pulmonology Progress Note ---
Pulmonary Progress Note Date of Service Apr 24, 2017. Attending Dr. Frank Subjective Patient is awake and arousable but notes he is very fatigued. He at this time he denies shortness of breath but mild dyspnea with exertion. Objective Patient was able to sit up in bed never full discussion showing no signs of respiratory insufficiency. Vital Signs: Stable on room air Respiratory: Crackles at the bases Abdomen: Notable pitting edema at the dependent regions Extremities: Notable dependent edema in dependent regions Cardiac: S1-S2 distant heart sounds but regular rate and rhythm Assessment & Plan 31-year-old male admitted with global anasarca and appears to be nephrotic syndrome with a history of pulmonary embolism: 1. Pulmonary Embolism: Patient had a previous history of un-provoked pulmonary embolism and was treated with a NOAQ then therapy discontinue. In the past 3 months he was experiencing lower extremity edema and his primary care physician himself initiated Eliquis for possible DVT. At this time is signs and symptoms could be all explained by nephrotic syndrome. I will perform upper and lower extremity DVT studies at this time for evaluation of clots. If the studies are negative I suggest we remove the patient from anticoagulation. I would like to perform a V/Q scan and/or CT angiogram but the studies would most likely either be nondiagnostic due to his volume overload status and/or places kidney under too much strain. 2. Anticoagulation: After reviewing my note as well as that of Nephrology Eliquis/NOAQs anticoagulants are not well study in obese patients with nephrotic syndrome. With this in mind I will discontinue the medication at this time and make a subsequent determination whether to restart anticoagulation based off DVT studies. 3. Mediastinal adenopathy: As the patient is notably volume overload secondary to nephrotic syndrome will hold off any further evaluation as this is most likely reactive lymphadenopathy. This will require further follow-up when the patient is stabilized. 4. Pulmonary hypertension: I have contacted cardiology and asked him to hold off on right heart catheterization as the patient's current condition is most likely secondary to nephrotic syndrome. Data Medications: Current Inpatient Medications Medications (Trade) Dose Ordered Sig/Silvio Route Start Time Stop Time Status Last Admin Dose Admin Ioversol (Optiray 320) 100 ml UD PRN IV 04/22/17 17:15 04/26/17 17:14 Apixaban (Eliquis Tab) 5 mg BID PO 04/22/17 23:45 05/22/17 23:44 04/24/17 07:40 5 MG Ceftriaxone Sodium 1 gm/ Dextrose 50 ml @ 100 mls/hr Q24H IV 04/23/17 20:00 04/28/17 19:59 04/23/17 20:28 100 MLS/HR Acetaminophen (Tylenol Tab) 650 mg Q4H PRN PO 04/22/17 21:00 05/22/17 20:59 Al Hydrox/Mg Hydrox/Simethicone (Maalox Max Susp) 15 ml Q4H PRN PO 04/22/17 21:00 05/22/17 20:59 Magnesium Hydroxide (Milk Of Magnesia Susp) 30 ml Q12H PRN PO 04/22/17 21:00 05/22/17 20:59 Ondansetron HCl (Zofran Inj) 4 mg Q6H PRN IV 04/22/17 21:00 05/22/17 20:59 Polyethylene (Miralax Powder Packet) 17 gm DAILY PRN PO 04/22/17 21:00 05/22/17 20:59 Potassium Chloride (Klor-Con M10) 10 meq BID17 PO 04/22/17 23:45 05/22/17 23:44 04/24/17 07:41 10 MEQ Nicotine (Nicoderm Cq 14MG Patch) 1 patch QAM TD 04/23/17 00:45 05/23/17 00:44 04/24/17 07:40 1 PATCH Miscellaneous (Remove Nicoderm Patch) 1 ea HS N/A 04/23/17 21:00 05/23/17 20:59 04/23/17 20:28 1 EA Hydralazine HCl (HydrALAZINE INJ) 20 mg Q6 PRN IV. 04/23/17 09:15 05/23/17 09:14 04/24/17 07:38 20 MG Hydralazine HCl (Apresoline Tab) 75 mg TID PO 04/24/17 09:00 05/23/17 13:59 04/24/17 10:18 75 MG Furosemide 20 mg/ Syringe 2 ml @ 4 mls/min TODAY@0915 IV 04/24/17 09:15 04/24/17 14:00 04/24/17 10:17 4 MLS/MIN Furosemide 40 mg/ Syringe 4 ml @ 4 mls/min BID IV 04/24/17 21:00 05/24/17 20:59 Vital Signs: Date Time Temp Pulse Resp B/P (MAP) Pulse Ox O2 Delivery O2 Flow Rate FiO2 04/24/17 08:00 Room Air 04/24/17 07:45 36.3 96 24 194/98 (130) 92 Room Air 04/24/17 04:00 Room Air 04/24/17 03:37 36.7 102 18 176/101 (126) 91 04/24/17 00:01 36.7 91 20 164/97 (119) 94 04/23/17 23:59 Room Air 04/23/17 20:00 Room Air 04/23/17 19:15 36.9 97 20 158/96 (116) 94 Room Air 04/23/17 16:40 181/82 (115) 04/23/17 16:03 96 Room Air 04/23/17 15:08 36.7 19 169/101 (123) 96 Nasal Cannula 2.0 Laboratory Results: Last 24 Hours Test 04/24/17 06:33 04/24/17 06:46 04/24/17 10:00 HIV (1&2) Ab and P24 Ag, 4th Gener NEG White Blood Count 7.12 K/uL Red Blood Count 3.77 M/uL Hemoglobin 9.7 g/dL Hematocrit 30.6 % Mean Corpuscular Volume 81.2 fL Mean Corpuscular Hemoglobin 25.7 pg Mean Corpuscular Hemoglobin Concent 31.7 g/dl Platelet Count 374 K/uL Mean Platelet Volume 8.9 fL Neutrophils (%) (Auto) 63.9 % Lymphocytes (%) (Auto) 24.9 % Monocytes (%) (Auto) 8.7 % Eosinophils (%) (Auto) 1.8 % Basophils (%) (Auto) 0.3 % Neutrophils # (Auto) 4.55 K/uL Lymphocytes # (Auto) 1.77 K/uL Monocytes # (Auto) 0.62 K/uL Eosinophils # (Auto) 0.13 K/uL Basophils # (Auto) 0.02 K/uL RDW Standard Deviation 47.7 fL RDW Coefficient of Variation 16.2 % Immature Granulocyte % (Auto) 0.4 % Immature Granulocyte # (Auto) 0.03 K/uL Sodium Level 141 mmol/L Potassium Level 3.8 mmol/L Chloride Level 110 mmol/L Carbon Dioxide Level 22 mmol/L Anion Gap 9.0 mmol/L Blood Urea Nitrogen 26 mg/dl Creatinine 1.86 mg/dl Est Creatinine Clear Calc Drug Dose 89.6 ml/min Estimated GFR () 54.3 Estimated GFR (Non- 46.8 BUN/Creatinine Ratio 13.9 Random Glucose 86 mg/dl Calcium Level 7.1 mg/dl Phosphorus Level 4.7 mg/dl Albumin 1.2 gm/dl Hepatitis B Surface Antibody NEG Urine Collection Time 24 HOURS Urine Total Volume 1150 mL Urine Total Protein 24 Hour > 83070.0 mg/24 hr Urine Total Protein > 1000.0 mg/dl
[2017-04-24] MEDS ORDERED: AMLODIPINE BESYLATE 5 MG TAB PO ONE (16:45)
[2017-04-24] MEDS ORDERED: FUROSEMIDE INJ 80 MG in SYRINGE 0 ML IV SCH (19:30)
[2017-04-24] MEDS: CEFTRIAXONE SOD INJ 1 GM in DEXTROSE 5% ADD-VANTAGE 50ML 50 ML IV SCH (19:43)
[2017-04-24] MEDS: FUROSEMIDE INJ 40 MG in SYRINGE 0 ML IV SCH (22:06)
[2017-04-24] MEDS ORDERED: ESZOPICLONE 2 MG TAB PO ONE (23:19)
[2017-04-25] VITALS (7 sets, daily range): BP systolic 149–178; BP diastolic 74–104; PULSE 89–102; TEMP 36.4–37.1; O2SAT 91–96
[2017-04-25 07:17] LABS: ALBUMIN 1.3 gm/dl (3.4-5.0); CALCIUM 7.3 mg/dl (8.5-10.1); CREATININE 1.9 mg/dl (0.60-1.40); PHOSPHORUS 4.6 mg/dl (2.5-4.9); POTASSIUM 3.8 mmol/L (3.5-5.1)
--- NOTE | 2017-04-25 09:07 | DIAGNOSTIC IMAGING REPORT ---
ULTRASOUND BILATERAL UPPER EXTREMITY VENOUS CLINICAL HISTORY: Upper extremity edema. COMPARISON STUDY: No priors. TECHNIQUE: Real-time, grayscale, and color Doppler sonography of the deep veins of the right and left upper extremity is performed. Compression and augmentation were utilized. FINDINGS: There is no sonographic evidence of deep venous thrombosis identified in the right or left upper extremity. The right and left internal jugular, axillary, and brachial veins are patent and normally compressible. Normal venous waveforms and augmentation are seen within both subclavian veins. The cephalic and basilic veins are clear in both are. The visualized radial and ulnar veins are patent bilaterally. Soft tissue edema is present in the arms. IMPRESSION: There is no sonographic evidence of deep venous thrombosis identified in the right or left upper extremity. Electronically signed by: Antoni Stokes M.D. 04/25/2017 9:05 AM Dictated Date/Time: 04/25/2017 9:04 AM
--- NOTE | 2017-04-25 09:08 | DIAGNOSTIC IMAGING REPORT ---
BILATERAL LOWER EXTREMITY VENOUS DOPPLER CLINICAL HISTORY: DVT evaluation COMPARISON STUDY: No previous studies for comparison. TECHNIQUE: Sonography of the deep venous system of the bilateral lower extremities was performed. Compression and augmentation were evaluated. FINDINGS: This exam was compromised due to suboptimal penetration. Note was made of nonocclusive thrombus within the left common femoral vein. This represents age indeterminate thrombus. The left superficial femoral vein was not visualized due to suboptimal penetration. Lower extremity edema was noted. IMPRESSION: 1. Small amount of nonocclusive deep venous thrombus within the left common femoral vein. This thrombus is age indeterminate. 2. Technically difficult exam due to suboptimal penetration with nonvisualization of portions of the left superficial femoral vein. No additional sites of deep venous thrombus. Electronically signed by: Kenny Frederick M.D. 04/25/2017 9:07 AM Dictated Date/Time: 04/25/2017 9:03 AM
[2017-04-25] MEDS: AMLODIPINE BESYLATE 5 MG TAB PO SCH (09:17)
[2017-04-25] MEDS: FUROSEMIDE INJ 40 MG in SYRINGE 0 ML IV SCH (09:18)
[2017-04-25] MEDS: POTASSIUM CHLORIDE 10 MEQ TABCR PO SCH ×2 (09:18→17:31)
[2017-04-25] MEDS: NICOTINE 14 MG/24 HR TDSY TD SCH (09:19)
--- NOTE | 2017-04-25 10:22 | Nephrology Progress Note ---
Nephrology Progress Note Date of Service Apr 25, 2017. Chief Complaint Nephrosis Subjective No acute events overnight. Bowie placed for clean catch urine and accurate I/O' s. No fevers or chills. No notable change in edema. Star states that he is feeling otherwise well. Review of Systems A complete review of systems was performed. Pertinent positives are noted above. All other systems are negative. Vital Signs Last 8 Hrs Date Time Temp Pulse Resp B/P (MAP) Pulse Ox O2 Delivery O2 Flow Rate FiO2 04/25/17 08:05 Room Air 04/25/17 07:40 36.5 98 18 160/101 (120) 91 Room Air 168/103 (124) 04/25/17 05:37 Room Air 04/25/17 04:10 Room Air 04/25/17 03:53 37.1 100 18 173/95 (121) 92 Last Recorded Weight Weight (Kilograms): 169.300 Physical Exam General Appearance: no apparent distress, + obese Head: normocephalic, atraumatic Eyes: normal inspection, sclerae normal ENT: normal ENT inspection, pharynx normal Neck: supple Respiratory/Chest: no respiratory distress, no accessory muscle use, + decreased breath sounds Cardiovascular: regular rate, rhythm, no gallop, no murmur Abdomen/GI: non tender, soft Genitourinary - Male: + pertinent finding (Bowie draining dark yellow urine, scrotal edema slightly improved) Extremities/Musculoskelatal: + swelling (anarca with subtle improvement) Neurologic/Psych: alert, normal mood/affect Family History Hypertension Social History Drug Use: none Marital Status: single Occupation: unemployed Laboratory Results Past 24 Hours 04/25/17 06:13 Test 04/24/17 19:24 04/25/17 06:13 Urine Color DK YELLOW Urine Appearance CLOUDY (CLEAR) Urine pH 5.0 (4.5-7.5) Urine Specific [place] 1.020 (1.000-1.030) Urine Protein 4+ (NEG) Urine Glucose (UA) NEG (NEG) Urine Ketones TRACE (NEG) Urine Occult Blood 3+ (NEG) Urine Nitrite NEG (NEG) Urine Bilirubin NEG (NEG) Urine Urobilinogen NEG (NEG) Urine Leukocyte Esterase MODERATE (NEG) Urine WBC (Auto) >30 /hpf (0-5) Urine RBC (Auto) >30 /hpf (0-4) Urine Hyaline Casts (Auto) 10-30 /lpf (0-5) Urine Epithelial Cells (Auto) 5-10 /lpf (0-5) Urine Bacteria (Auto) NEG (NEG) Urine Pathogenic Casts 1-5 WBC CASTS /lpf (0) Urine Yeast (Auto) (NONE PRSENT) Anion Gap 9.0 mmol/L (3-11) Est Creatinine Clear Calc Drug Dose 87.0 ml/min Estimated GFR () 52.9 Estimated GFR (Non- 45.6 BUN/Creatinine Ratio 13.6 (10-20) Calcium Level 7.3 mg/dl (8.5-10.1) Phosphorus Level 4.6 mg/dl (2.5-4.9) Albumin 1.3 gm/dl (3.4-5.0) Allergies Coded Allergies: No Known Allergies (Unverified , 04/22/17) Medications Current Inpatient Medications Medications (Trade) Dose Ordered Sig/Silvio Route Start Time Stop Time Status Last Admin Dose Admin Ioversol (Optiray 320) 100 ml UD PRN IV 04/22/17 17:15 04/26/17 17:14 Ceftriaxone Sodium 1 gm/ Dextrose 50 ml @ 100 mls/hr Q24H IV 04/23/17 20:00 04/28/17 19:59 04/24/17 19:43 100 MLS/HR Acetaminophen (Tylenol Tab) 650 mg Q4H PRN PO 04/22/17 21:00 05/22/17 20:59 04/24/17 14:58 650 MG Al Hydrox/Mg Hydrox/Simethicone (Maalox Max Susp) 15 ml Q4H PRN PO 04/22/17 21:00 05/22/17 20:59 Magnesium Hydroxide (Milk Of Magnesia Susp) 30 ml Q12H PRN PO 04/22/17 21:00 05/22/17 20:59 Ondansetron HCl (Zofran Inj) 4 mg Q6H PRN IV 04/22/17 21:00 05/22/17 20:59 Polyethylene (Miralax Powder Packet) 17 gm DAILY PRN PO 04/22/17 21:00 05/22/17 20:59 Potassium Chloride (Klor-Con M10) 10 meq BID17 PO 04/22/17 23:45 05/22/17 23:44 04/25/17 09:18 10 MEQ Nicotine (Nicoderm Cq 14MG Patch) 1 patch QAM TD 04/23/17 00:45 05/23/17 00:44 04/25/17 09:19 1 PATCH Miscellaneous (Remove Nicoderm Patch) 1 ea HS N/A 04/23/17 21:00 05/23/17 20:59 04/24/17 22:12 1 EA Hydralazine HCl (HydrALAZINE INJ) 20 mg Q6 PRN IV. 04/23/17 09:15 05/23/17 09:14 04/24/17 22:11 20 MG Hydralazine HCl (Apresoline Tab) 100 mg TID PO 04/24/17 21:00 05/24/17 20:59 04/25/17 09:18 100 MG Amlodipine Besylate (Norvasc Tab) 5 mg QAM PO 04/25/17 09:00 05/25/17 08:59 04/25/17 09:17 5 MG Furosemide 80 mg/ Syringe 8 ml @ 4 mls/min BID17 IV 04/25/17 17:00 05/24/17 20:59 Impression (1) Renal insufficiency (2) Proteinuria (3) Anasarca (4) Hypoalbuminemia (5) Anemia Star is a 31 year-old male presenting with anasarca. He was unable to function at home due to scrotal edema and difficulty walking. Presentation notable for hypoalbuminemia, hypertension and renal insufficiency. He is non oliguric. Creatinine stable at 1.8-2.0 mg/dL. 24 hour urine collection documented >11 grams/d proteinuria. Urine is notable for 30+ WBC, 30+ RBC. Bacteriuria improved. Initial culture likely contaminated -- polymicrobial. He is on empiric treatment with ceftriaxone and I would suggest that he complete a 7 day course of treatment for UTI. CT scan of the chest, abdomen and pelvis documented enlarged but otherwise structurally normal kidneys with diffuse edema as well as enlargement of the liver and spleen. Hilar adenopathy is also appreciated. TTE documented significant pulmonary hypertension with an elevated RA pressure and dilated IVC. I discussed the plan of care with pulmonary and cardiology consults. Primary goal remains diuresis. Furosemide increased to 80 mg BID. Past medical history is notable for a history of DVT/PE, chronic anticoagulation with Eliquis, obesity, history of IV drug abuse, history of spinal osteomyelitis. Clinical presentation is concerning for advanced nephrotic kidney disease. The patient does not have diabetes mellitus. He had an abdominal fat pad biopsy in the past for unclear reasons. Medical history includes risk factors for secondary FSGS or MPGN. I cannot exclude other etiologies such as membranous or minimal change. Less likely would be an infiltrative process. Nephrosis from sarcoidosis would be atypical. Urine microscopy did show WBC cast suggesting possible AIN. Kidney biopsy will be required. Due to habitus, I would favor CT guided. This has been discussed with the primary team as well as care coordination. Prior to biopsy, urine should be clear of evidence of infection and BP reasonably controlled. Volume status is improving. It would be reasonable to trial a low dose DAVID at this time. Additional records from [facility] 2014 were reviewed. Documentation suggests that hypercoagulable work up was negative in the past but I have not seen results of any testing performed. This work up does not seem to have been performed at [facility]. Records document a serum creatinine of <1 mg/dL in 2016. Additional records from the PCP have been requested. Recommendations Nephrosis: -- Continue furosemide to encourage net negative fluid balance (furosemide increased to 80 mg twice daily this morning, may need to continue to increase as needed) -- Sodium restrict diet -- Monitor metabolic profile daily -- Kidney biopsy to be arranged, CT guided requested -- SPEP/immunofixation pending -- HIV negative -- Hepatitis serologies negative -- Avoid NSAIDS -- If renal function remains stable, would consider low dose DAVID/ARB Hypertension: -- Hydralazine increased to 100 mg TID -- Increased diuretics -- Start low dose DAVID, if BP remains elevated Pyuria: -- Currently on ceftriaxone for possible UTI -- Culture polymicrobial -- Suggest completing course of treatment for complicated UTI Hematuria, gross: -- Etiology unclear - possibly cystitis -- Appears to be improving
[2017-04-25] MEDS ORDERED: CARVEDILOL 3.125 MG TAB PO ONE (12:15)
[2017-04-25] MEDS ORDERED: NURSING VERBAL MED ORDER ONE (12:45)
[2017-04-25] MEDS ORDERED: MICONAZOLE NITRATE POWDER 43 GM EXT PRN (13:00)
[2017-04-25] MEDS ORDERED: HEPARIN IV BOLUS 9,000 UNIT in SYRINGE 0 ML IV ONE (14:30)
[2017-04-25] MEDS ORDERED: HEPARIN 25,000 UNIT/500ML D5W 500 ML IV PRN (14:30)
--- NOTE | 2017-04-25 14:32 | Hospitalist Progress Note ---
Hospitalist Progress Note Date of Service Apr 25, 2017. (Gricel Kelly ., CAROL-C) Subjective Pt evaluation today including: conversation w/ patient, physical exam, chart review, lab review, review of studies, conversation w/ center lead consultant (spoke with Dr. Tipton), review of inpatient medication list Pain: Scrotal discomfort PO Intake: Tolerating PO diet Voiding: thornton catheter in place (dark urine) The patient complains of fatigue, stating he has not been sleeping well. He notes a soreness/discomfort in his scrotum due to the swelling, which has not improved. He complains of intermittent shortness of breath and does report dyspnea on exertion. He denies any orthopnea or PND. The patient denies fevers , chills, sweats, chest pain, palpitations, claudication, cough, wheezing, nausea, vomiting, abdominal pain, dysuria, hematuria, urinary retention, paralysis, weakness, numbness and tingling. Additional Comments: See HPI for pertinent positives and negatives. All other systems reviewed and negative. (Gricel Kelly ., CAROL-C) Objective Vital Signs Date Time Temp Pulse Resp B/P (MAP) Pulse Ox O2 Delivery O2 Flow Rate FiO2 04/25/17 12:03 Room Air 04/25/17 11:11 36.8 102 18 178/104 (128) 92 Room Air 04/25/17 08:05 Room Air 04/25/17 07:40 36.5 98 18 160/101 (120) 91 Room Air 168/103 (124) 04/25/17 05:37 Room Air 04/25/17 04:10 Room Air 04/25/17 03:53 37.1 100 18 173/95 (121) 92 04/25/17 00:00 96 Room Air 04/24/17 22:30 36.5 101 18 174/95 (121) 96 Room Air 04/24/17 20:00 91 Room Air 04/24/17 19:57 36.5 96 20 198/113 (141) 93 Room Air 04/24/17 16:00 Room Air 04/24/17 15:22 36.5 96 20 168/106 (126) 93 Room Air (Gricel Kelly, CAROL-C) Physical Exam Notes: General appearance: +Morbidly obese. Fatigued. Well-developed, well-nourished , no apparent distress Head: Normocephalic, atraumatic Eyes: Normal inspection, PERRL, EOMI ENT: Normal ENT inspection, hearing grossly normal, pharynx normal Neck: Supple, no JVD, trachea midline Respiratory/Chest: Lungs clear to auscultation, normal breath sounds, no respiratory distress Cardiovascular: Regular rate & rhythm, no gallop, no murmur Abdomen/GI: Normal bowel sounds, non-tender, soft : +Thornton in place with dark eunice urine. Massive scrotal edema. Extremities/Musculoskeletal: +2+ pitting edema. Normal inspection, no calf tenderness, no pedal edema Neurological/Psych: Alert, normal mood/affect, oriented x 3 Skin: Normal color, warm/dry, no rash (Gricel Kelly ., CAROL-C) Laboratory Results Last 24 Hours Test 04/24/17 19:24 04/25/17 06:13 Urine Color DK YELLOW Urine Appearance CLOUDY Urine pH 5.0 Urine Specific [place] 1.020 Urine Protein 4+ Urine Glucose (UA) NEG Urine Ketones TRACE Urine Occult Blood 3+ Urine Nitrite NEG Urine Bilirubin NEG Urine Urobilinogen NEG Urine Leukocyte Esterase MODERATE Urine WBC (Auto) >30 /hpf Urine RBC (Auto) >30 /hpf Urine Hyaline Casts (Auto) 10-30 /lpf Urine Epithelial Cells (Auto) 5-10 /lpf Urine Bacteria (Auto) NEG Urine Pathogenic Casts 1-5 WBC CASTS /lpf Urine Yeast (Auto) Sodium Level 144 mmol/L Potassium Level 3.8 mmol/L Chloride Level 109 mmol/L Carbon Dioxide Level 26 mmol/L Anion Gap 9.0 mmol/L Blood Urea Nitrogen 26 mg/dl Creatinine 1.90 mg/dl Est Creatinine Clear Calc Drug Dose 87.0 ml/min Estimated GFR () 52.9 Estimated GFR (Non- 45.6 BUN/Creatinine Ratio 13.6 Random Glucose 85 mg/dl Calcium Level 7.3 mg/dl Phosphorus Level 4.6 mg/dl Albumin 1.3 gm/dl (Gricel Kelly ., PA-C) Assessment and Plan 31 y/o male with a history of DVT/PE, morbid obesity, h/o IVDU, and previous lumbar osteomyelitis who presents with worsening lower extremity edema, now severely affecting his scrotum as well and his ability to walk. Anasarca, acute renal failure, proteinuria -Admit to telemetry. No acute events overnight. Pt in SR with HR 60s-90s -Nephrology consulted, appreciate recs: Spoke with Dr. Tipton, who recommends renal biopsy at tertiary care center w/IR. Should have BP better controlled first. If renal function is remaining stable, could start a low dose DAVID/ARB. Increase furosemide. -Lasix increased to 80 mg IV BID -UO 1375 cc, net balance -1369 cc on 04/24. UO improved now with placement of Thornton -Hep B & C, HIV negative -24 hr urine protein collection with over 30967 mg of protein -Creatinine 1.9 on 04/25, stable from 1.86 -Immuno studies pending -Echocardiogram shows EF=45-50%, mild concentric left ventricular hypertrophy. Mild inferior base to mid hypokinesis. Severe pulmonary hypertension w/PASP 65- 70 mmHg and dilated IVC. HTN--BP remains poorly controlled -Continue amlodipine 5 mg PO qd, hydralazine 100 mg PO TID -Start Coreg 3.125 x 1 dose, then 6.25 mg PO BID due to HTN, tachycardia and borderline LVEF as above. Tomorrow can start weaning down hydralazine to replace with DAVID Pulmonary hypertension -Cardiology consulted, appreciate recs: Recommend right heart cath at some point to further evaluate. Possible chronic thromboembolic disease. Asymmetric right hilar enlargement, mediastinal lymphadenopathy -Pulmonology consulted, appreciate recs: Check Doppler ultrasounds for DVTs. Lymphadenopathy likely reactive. Hold off on right heart cath. H/o DVT/PE -Previous DVT/PE in 2014 treated at [facility]. Per records, pt was supposed to be on lifelong anticoagulation. He was started on Eliquis but had at some point stopped taking it. He was then restarted on the Eliquis in Nov 2016 by his PCP due to his lower extremity edema -Small non-occlusive DVT in left common femoral vein, age indeterminate -RLE and upper extremities negative for DVT -Heparin drip for now due to morbid obesity Possible UTI -UA dirty, urine culture contaminated. Not able to get good clean catch due to massive scrotal edema -Repeat urine culture pending -Continue Rocephin for now HALLE -Significant desaturation with overnight pulse ox study. 233 minutes spent under 88% -CPAP H/O of osteomyelitis/Discitis--noted -Patient was transferred to [facility] – [place] and had IV ABX- sent home with PICC line. No surgical intervention -Cr. at the time was normal -hep c, b and HIV were negative Code Status -Level I, FULL RESUSCITATION STATUS (Gricel Kelly ., PA-C) PA Physician Supervision Note: I interviewed and examined the patient. Discussed with Gricel Kelly PAC and agree with findings and plan as documented in the note. Any exceptions or clarifications are listed here: None Patient himself is a very loose understanding of his exact nature of his illness he is mostly worried about his scrotal edema and total body edema he does understand that he is something wrong with his kidney and he may need a renal biopsy to define it he is in mild distress otherwise mostly from being uncomfortable from his swelling Temperature 36 5 pulse 98 blood pressure is elevated at 160/101 his heart rates also elevated creatinine is relatively stable with slight elevation of 1.9 His cardiac exam sounds are regular here no rub his lungs are clear he has lower extremity edema 2-3+ and very large scrotal edema requiring a Thornton catheter for urine outlet obstruction from the amount of swelling Anasarca, acute renal failure, proteinuria Nephrology consult Dr. Tipton, who recommends renal biopsy at tertiary care center w/IR sometime shortly surrounding his hospital stay however no acute transfer required consideration oflow dose DAVID/ARB. Increased furosemide. 04/25 -Looking for other causes of acute renal failure, hep B & C, HIV negative, Immuno studies pending HTN---Echocardiogram shows EF=45-50%, mild concentric left ventricular hypertrophy. Mild inferior base to mid hypokinesis. Severe pulmonary hypertension w/PASP 65-70 mmHg and dilated IVC. Starting Coreg in addition to amlodipine 5 mg PO qd, hydralazine 100 mg PO TID nephrology is recommended DAVID inhibitor we may wish to transition from hydralazine towards this in the future Pulmonary hypertension Recommend right heart cath at some point to further evaluate. Possible chronic thromboembolic disease. Has a history of DVT PE in 2015 Asymmetric right hilar enlargement, mediastinal lymphadenopathy -Pulmonology consulted, appreciate recs: Doppler shows age-indeterminate left leg DVT started on full dose anticoagulation. H/o DVT/PE -Previous DVT/PE in 2015 treated at [facility]. Per records, pt was supposed to be on lifelong anticoagulation. He was started on Eliquis but had at some point stopped taking it. He was then restarted on the Eliquis in Nov 2016 by his PCP due to his lower extremity edema, due to his body weight and renal function will stop Eliquis and use intravenous heparin with likely consideration of Coumadin however this may need to be altered if a renal biopsy is required Possible UTI Rocephin for now pending culture HALLE-Significant desaturation with overnight pulse ox study. 233 minutes spent under 88%-CPAP will try to arrange for outpatient CPAP system breathing H/O of osteomyelitis/Discitis--noted and resolved after treatment with home IV antibiotics Code Status -Level I, FULL RESUSCITATION STATUS Documented By: Som Marie (Som Marie M.D.)
--- NOTE | 2017-04-25 14:36 | Cardiology Follow-Up ---
Subjective Subjective Date of Service: Apr 25, 2017. Pt evaluation today including: conversation w/ patient, physical exam, chart review, lab review, review of studies, review of inpatient medication list Additional Details: Feels about the same. Denies chest pain or shortness of breath. Negative 1300 yesterday. No events on telemetry. Problem List Medical Problems: (1) Acute kidney injury Status: Acute (2) Hypoxia Status: Acute (3) Pulmonary edema Status: Acute (4) Spinal epidural abscess Status: Acute Review of Systems Constitutional: No fever, No chills Eyes: No worsening of vision ENT: No hearing loss Respiratory: + shortness of breath, + dyspnea on exertion, No cough, No sputum Cardiac: No chest pain Abdomen: No pain, No nausea, No vomiting, No diarrhea Male : No dysuria, No urinary frequency Objective Vital Signs Last Vital Signs Documentation Date Time Temp Pulse Resp B/P (MAP) Pulse Ox O2 Delivery O2 Flow Rate FiO2 04/25/17 12:03 Room Air 04/25/17 11:11 36.8 102 18 178/104 (128) 92 04/23/17 15:08 2.0 Physical Exam: General Appearance: no apparent distress, + obese, + pertinent finding ( Generalized edema) ENT: hearing grossly normal Neck: supple Respiratory/Chest: no respiratory distress, no accessory muscle use, + decreased breath sounds (at bases) Cardiovascular: regular rate, rhythm, no murmur Abdomen: normal bowel sounds, + distended, + pertinent finding (2+ pitting edema, scrotal edema unchanged. ) Extremities: + pedal edema, + pertinent finding (anasarca -- minimal improvement from prior) Neurologic/Psychiatric: alert, normal mood/affect, oriented x 3 Skin: warm/dry Assessment and Plan 1. Anasarca. 2. Nephrotic syndrome/renal insufficiency 3. Severe pulmonary hypertension. 4. Hypertension 5. Mild concentric LVH 6. Borderline regional wall motion abnormality on echo. 7. Morbid obesity with suspected sleep disordered breathing 8. History of prior deep venous thrombosis and pulmonary embolism -- thrombus in left CFV Labs consistent with nephrotic syndrome Pulmonary hypertension likely contributing minimally to current picture Reviewed echo report from [facility] at time of initial PE/DVT -- mod pulm hypertension at that time with RV strain. Also there was concern for severe LVH and question of amyloid raised. On current echo LVH is only mild. -- Continue diuretics, antihypertensives per nephrology. -- Agree with holding off on RHC. Unlikely to change of address clerk at this time. -- Heparin being started for anticoagulation Continued [facility] stay due to: multiple IV medications needed Discharge planning: home Medications: Current Inpatient Medications Medications (Trade) Dose Ordered Sig/Silvio Route Start Time Stop Time Status Last Admin Dose Admin Ioversol (Optiray 320) 100 ml UD PRN IV 04/22/17 17:15 04/26/17 17:14 Ceftriaxone Sodium 1 gm/ Dextrose 50 ml @ 100 mls/hr Q24H IV 04/23/17 20:00 04/28/17 19:59 04/24/17 19:43 100 MLS/HR Acetaminophen (Tylenol Tab) 650 mg Q4H PRN PO 04/22/17 21:00 05/22/17 20:59 04/24/17 14:58 650 MG Al Hydrox/Mg Hydrox/Simethicone (Maalox Max Susp) 15 ml Q4H PRN PO 04/22/17 21:00 05/22/17 20:59 Magnesium Hydroxide (Milk Of Magnesia Susp) 30 ml Q12H PRN PO 04/22/17 21:00 05/22/17 20:59 Ondansetron HCl (Zofran Inj) 4 mg Q6H PRN IV 04/22/17 21:00 05/22/17 20:59 Polyethylene (Miralax Powder Packet) 17 gm DAILY PRN PO 04/22/17 21:00 05/22/17 20:59 Potassium Chloride (Klor-Con M10) 10 meq BID17 PO 04/22/17 23:45 05/22/17 23:44 04/25/17 09:18 10 MEQ Nicotine (Nicoderm Cq 14MG Patch) 1 patch QAM TD 04/23/17 00:45 05/23/17 00:44 04/25/17 09:19 1 PATCH Miscellaneous (Remove Nicoderm Patch) 1 ea HS N/A 04/23/17 21:00 05/23/17 20:59 04/24/17 22:12 1 EA Hydralazine HCl (HydrALAZINE INJ) 20 mg Q6 PRN IV. 04/23/17 09:15 05/23/17 09:14 04/24/17 22:11 20 MG Hydralazine HCl (Apresoline Tab) 100 mg TID PO 04/24/17 21:00 05/24/17 20:59 04/25/17 12:21 100 MG Amlodipine Besylate (Norvasc Tab) 5 mg QAM PO 04/25/17 09:00 05/25/17 08:59 04/25/17 09:17 5 MG Furosemide 80 mg/ Syringe 8 ml @ 4 mls/min BID17 IV 04/25/17 17:00 05/24/17 20:59 Carvedilol (Coreg Tab) 6.25 mg BID PO 04/25/17 21:00 05/25/17 20:59 Miconazole Nitrate (Desenex Powder) 1 appln BID PRN EXT 04/25/17 13:00 05/25/17 12:59 Heparin Sodium/ Dextrose 1 ea Q10M N/A 04/25/17 14:00 05/25/17 13:59 Lab Results: 04/25/17 06:13 Test 04/24/17 19:24 04/25/17 06:13 04/25/17 14:07 Urine Color DK YELLOW Urine Appearance CLOUDY (CLEAR) Urine pH 5.0 (4.5-7.5) Urine Specific [place] 1.020 (1.000-1.030) Urine Protein 4+ (NEG) Urine Glucose (UA) NEG (NEG) Urine Ketones TRACE (NEG) Urine Occult Blood 3+ (NEG) Urine Nitrite NEG (NEG) Urine Bilirubin NEG (NEG) Urine Urobilinogen NEG (NEG) Urine Leukocyte Esterase MODERATE (NEG) Urine WBC (Auto) >30 /hpf (0-5) Urine RBC (Auto) >30 /hpf (0-4) Urine Hyaline Casts (Auto) 10-30 /lpf (0-5) Urine Epithelial Cells (Auto) 5-10 /lpf (0-5) Urine Bacteria (Auto) NEG (NEG) Urine Pathogenic Casts 1-5 WBC CASTS /lpf (0) Urine Yeast (Auto) (NONE PRSENT) Anion Gap 9.0 mmol/L (3-11) Est Creatinine Clear Calc Drug Dose 87.0 ml/min Estimated GFR () 52.9 Estimated GFR (Non- 45.6 BUN/Creatinine Ratio 13.6 (10-20) Calcium Level 7.3 mg/dl (8.5-10.1) Phosphorus Level 4.6 mg/dl (2.5-4.9) Albumin 1.3 gm/dl (3.4-5.0)
[2017-04-25 14:46] LABS: BASO % 0.2 %; BASO ABS # 0.02 K/uL (0-0.2); EOS % 1.3 %; EOS ABS # 0.11 K/uL (0-0.5); HEMATOCRIT 35.5 % (42-52); HEMOGLOBIN 11.5 g/dL (14.0-18.0); IG# 0.05 K/uL (0.00-0.02); LYMPH % 19.5 %; LYMPH ABS # 1.71 K/uL (1.2-3.4); MEAN CELL VOLUME 80.7 fL (80-100); MEAN CORPUSCULAR HEMOGLOBIN 26.1 pg (25-34); MEAN PLATELET VOLUME 8.7 fL (7.4-10.4); MONO % 7.9 %; MONO ABS # 0.69 K/uL (0.11-0.59); NEUT % 70.5 %; PLATELET COUNT 426 K/uL (130-400); RED CELL DISTRIBUTION WIDTH CV 16.2 % (11.5-14.5); RED CELL DISTRIBUTION WIDTH SD 47.8 fL (36.4-46.3); WHITE BLOOD COUNT 8.78 K/uL (4.8-10.8)
[2017-04-25 14:58] LABS: PTT PATIENT 22.9 SECONDS (21.0-31.0)
[2017-04-25 15:43] LABS: MEAN CORPUSCULAR HGB CONC 32.4 g/dl (32-36)
[2017-04-25] MEDS: FUROSEMIDE INJ 80 MG in SYRINGE 0 ML IV SCH (17:31)
--- NOTE | 2017-04-25 19:18 | Pulmonology Progress Note ---
Pulmonary Progress Note Date of Service Apr 25, 2017. Attending Dr. Naseem Jaffe The patient presented to the hospital with increasing shortness of breath, increased edema in the scrotal area as well as in the lower activity. The patient was found to have nephrotic syndrome. Patient does have history also of venal thromboembolic event and was treated with anticoagulation in the past. Patient was admitted to the hospital and we were asked to evaluate the patient due to dyspnea. The patient was seen by Dr. Frank, appreciate his input and I agree with his assessment and plan. Patient does have significant pulmonary hypertension however the etiology could be related to nephrotic syndrome itself. Once the patient fluid status is been corrected, PA catheter with vasodilator trial can be obtained. Objective Patient was able to sit up in bed never full discussion showing no signs of respiratory insufficiency. Vital Signs: Stable on room air Respiratory: Crackles at the bases Abdomen: Notable pitting edema at the dependent regions Extremities: Notable dependent edema in dependent regions Cardiac: S1-S2 distant heart sounds but regular rate and rhythm On 04/25/2017, his physical exam revealed morbid obese gentleman, vital signs remained stable, no JVP, heart examination S1 and S2 regular rate and rhythm, distant breath sounds bilaterally, abdomen is benign, bilateral lower extremity edema. Scrotal edema. On his labs and x-rays also been reviewed personally. Consistent with renal failure and dilated pulmonary artery. Assessment & Plan 31-year-old male admitted with global anasarca and appears to be nephrotic syndrome with a history of pulmonary embolism: 1. Pulmonary Embolism: Patient had a previous history of un-provoked pulmonary embolism and was treated with a NOAQ then therapy discontinue. In the past 3 months he was experiencing lower extremity edema and his primary care physician himself initiated Eliquis for possible DVT. At this time is signs and symptoms could be all explained by nephrotic syndrome. I will perform upper and lower extremity DVT studies at this time for evaluation of clots. If the studies are negative I suggest we remove the patient from anticoagulation. I would like to perform a V/Q scan and/or CT angiogram but the studies would most likely either be nondiagnostic due to his volume overload status and/or places kidney under too much strain. 2. Anticoagulation: After reviewing my note as well as that of Nephrology Eliquis/NOAQs anticoagulants are not well study in obese patients with nephrotic syndrome. With this in mind I will discontinue the medication at this time and make a subsequent determination whether to restart anticoagulation based off DVT studies. 3. Mediastinal adenopathy: As the patient is notably volume overload secondary to nephrotic syndrome will hold off any further evaluation as this is most likely reactive lymphadenopathy. This will require further follow-up when the patient is stabilized. 4. Pulmonary hypertension: I have contacted cardiology and asked him to hold off on right heart catheterization as the patient's current condition is most likely secondary to nephrotic syndrome. Agree with the above, the patient should be treated with anticoagulation, evaluation for pulmonary hypertension to determine the WHO type should take place later after his nephrotic syndrome and fluid status has been improved. The patient also noted to have mediastinal lymphadenopathy which probably reactive. Thank you, will follow as needed, please call me With any questions. Data Medications: Current Inpatient Medications Medications (Trade) Dose Ordered Sig/Silvio Route Start Time Stop Time Status Last Admin Dose Admin Ioversol (Optiray 320) 100 ml UD PRN IV 04/22/17 17:15 04/26/17 17:14 Ceftriaxone Sodium 1 gm/ Dextrose 50 ml @ 100 mls/hr Q24H IV 04/23/17 20:00 04/28/17 19:59 04/24/17 19:43 100 MLS/HR Acetaminophen (Tylenol Tab) 650 mg Q4H PRN PO 04/22/17 21:00 05/22/17 20:59 04/24/17 14:58 650 MG Al Hydrox/Mg Hydrox/Simethicone (Maalox Max Susp) 15 ml Q4H PRN PO 04/22/17 21:00 05/22/17 20:59 Magnesium Hydroxide (Milk Of Magnesia Susp) 30 ml Q12H PRN PO 04/22/17 21:00 05/22/17 20:59 Ondansetron HCl (Zofran Inj) 4 mg Q6H PRN IV 04/22/17 21:00 05/22/17 20:59 Polyethylene (Miralax Powder Packet) 17 gm DAILY PRN PO 04/22/17 21:00 05/22/17 20:59 Potassium Chloride (Klor-Con M10) 10 meq BID17 PO 04/22/17 23:45 05/22/17 23:44 04/25/17 17:31 10 MEQ Nicotine (Nicoderm Cq 14MG Patch) 1 patch QAM TD 04/23/17 00:45 05/23/17 00:44 04/25/17 09:19 1 PATCH Miscellaneous (Remove Nicoderm Patch) 1 ea HS N/A 04/23/17 21:00 05/23/17 20:59 04/24/17 22:12 1 EA Hydralazine HCl (HydrALAZINE INJ) 20 mg Q6 PRN IV. 04/23/17 09:15 05/23/17 09:14 04/24/17 22:11 20 MG Hydralazine HCl (Apresoline Tab) 100 mg TID PO 04/24/17 21:00 05/24/17 20:59 04/25/17 12:21 100 MG Amlodipine Besylate (Norvasc Tab) 5 mg QAM PO 04/25/17 09:00 05/25/17 08:59 04/25/17 09:17 5 MG Furosemide 80 mg/ Syringe 8 ml @ 4 mls/min BID17 IV 04/25/17 17:00 05/24/17 20:59 04/25/17 17:31 4 MLS/MIN Carvedilol (Coreg Tab) 6.25 mg BID PO 04/25/17 21:00 05/25/17 20:59 Miconazole Nitrate (Desenex Powder) 1 appln BID PRN EXT 04/25/17 13:00 05/25/17 12:59 Heparin Sodium/ Dextrose 500 ml @ 40 mls/hr [id number] PRN IV 04/25/17 14:30 05/25/17 14:29 04/25/17 14:49 40 MLS/HR I & O: 24-Hour Column 04/26/17 08:00 Intake Total 480 ml Output Total 600 ml Balance -120 ml Vital Signs: Date Time Temp Pulse Resp B/P (MAP) Pulse Ox O2 Delivery O2 Flow Rate FiO2 04/25/17 16:02 Room Air 04/25/17 15:58 36.7 89 20 164/74 (104) 94 Room Air 04/25/17 12:03 Room Air 04/25/17 11:11 36.8 102 18 178/104 (128) 92 Room Air 04/25/17 08:05 Room Air 04/25/17 07:40 36.5 98 18 160/101 (120) 91 Room Air 168/103 (124) 04/25/17 05:37 Room Air 04/25/17 04:10 Room Air 04/25/17 03:53 37.1 100 18 173/95 (121) 92 04/25/17 00:00 96 Room Air 04/24/17 22:30 36.5 101 18 174/95 (121) 96 Room Air 04/24/17 20:00 91 Room Air 04/24/17 19:57 36.5 96 20 198/113 (141) 93 Room Air Laboratory Results: Last 24 Hours Test 04/24/17 19:24 04/25/17 06:13 04/25/17 14:37 Urine Color DK YELLOW Urine Appearance CLOUDY Urine pH 5.0 Urine Specific [place] 1.020 Urine Protein 4+ Urine Glucose (UA) NEG Urine Ketones TRACE Urine Occult Blood 3+ Urine Nitrite NEG Urine Bilirubin NEG Urine Urobilinogen NEG Urine Leukocyte Esterase MODERATE Urine WBC (Auto) >30 /hpf Urine RBC (Auto) >30 /hpf Urine Hyaline Casts (Auto) 10-30 /lpf Urine Epithelial Cells (Auto) 5-10 /lpf Urine Bacteria (Auto) NEG Urine Pathogenic Casts 1-5 WBC CASTS /lpf Urine Yeast (Auto) Sodium Level 144 mmol/L Potassium Level 3.8 mmol/L Chloride Level 109 mmol/L Carbon Dioxide Level 26 mmol/L Anion Gap 9.0 mmol/L Blood Urea Nitrogen 26 mg/dl Creatinine 1.90 mg/dl Est Creatinine Clear Calc Drug Dose 87.0 ml/min Estimated GFR () 52.9 Estimated GFR (Non- 45.6 BUN/Creatinine Ratio 13.6 Random Glucose 85 mg/dl Calcium Level 7.3 mg/dl Phosphorus Level 4.6 mg/dl Albumin 1.3 gm/dl White Blood Count 8.78 K/uL Red Blood Count 4.40 M/uL Hemoglobin 11.5 g/dL Hematocrit 35.5 % Mean Corpuscular Volume 80.7 fL Mean Corpuscular Hemoglobin 26.1 pg Mean Corpuscular Hemoglobin Concent 32.4 g/dl Platelet Count 426 K/uL Mean Platelet Volume 8.7 fL Neutrophils (%) (Auto) 70.5 % Lymphocytes (%) (Auto) 19.5 % Monocytes (%) (Auto) 7.9 % Eosinophils (%) (Auto) 1.3 % Basophils (%) (Auto) 0.2 % Neutrophils # (Auto) 6.20 K/uL Lymphocytes # (Auto) 1.71 K/uL Monocytes # (Auto) 0.69 K/uL Eosinophils # (Auto) 0.11 K/uL Basophils # (Auto) 0.02 K/uL RDW Standard Deviation 47.8 fL RDW Coefficient of Variation 16.2 % Immature Granulocyte % (Auto) 0.6 % Immature Granulocyte # (Auto) 0.05 K/uL Prothrombin Time 10.7 SECONDS Prothromb Time International Ratio 1.0 Activated Partial Thromboplast Time 22.9 SECONDS Partial Thromboplastin Ratio 0.9
[2017-04-25] MEDS: CEFTRIAXONE SOD INJ 1 GM in DEXTROSE 5% ADD-VANTAGE 50ML 50 ML IV SCH (20:41)
[2017-04-25] MEDS: CARVEDILOL 6.25 MG TAB PO SCH (20:41)
[2017-04-25] MEDS ORDERED: ENOXAPARIN 1 MG/KG SQ SCH (21:00)
[2017-04-25] MEDS ORDERED: FUROSEMIDE INJ 80 MG in SYRINGE 0 ML IV ONE (22:30)
[2017-04-25] MEDS ORDERED: [UNRECOGNIZED DRUG - REMARK] PRN (23:00)
[2017-04-25] MEDS: ENOXAPARIN 80 MG/0.8 ML SYR SQ SCH (23:57)
[2017-04-26] VITALS (9 sets, daily range): BP systolic 142–190; BP diastolic 78–99; PULSE 94–100; TEMP 36.4–37; O2SAT 90–94
--- NOTE | 2017-04-26 01:27 | Pharmacy Progress Note ---
Enoxaparin Dosing Consult Date of Service: Apr 26, 2017. Pharmacy Dosing Scope Pharmacy is consulted to review the use of enoxaparin in a special risk patient population possibly prone to accumulate drug: bariatric/renal impairment/ extended therapy & to initiate change in the setting of ordered THERAPEUTIC enoxaparin sub-q dosing therapy, order appropriate labs and adjust drug/dose/ frequency. Subjective The patient is a 31 year old male admitted on Apr 22, 2017 at 20:57 for Edema, Pleural Effusion. Patient is currently on day # 1 of THERAPEUTIC enoxaparin sub-q for r/o PE . Objective Height (Feet): 5 Height (Inches): 9.00 Weight (Kilograms): 169.300 Laboratory Results: Last 24 Hours Test 04/25/17 06:13 04/25/17 14:37 Blood Urea Nitrogen 26 mg/dl (7-18) Creatinine 1.90 mg/dl (0.60-1.40) Activated Partial Thromboplast Time 22.9 SECONDS (21.0-31.0) White Blood Count 8.78 K/uL (4.8-10.8) Red Blood Count 4.40 M/uL (4.7-6.1) Hemoglobin 11.5 g/dL (14.0-18.0) Hematocrit 35.5 % (42-52) Mean Corpuscular Volume 80.7 fL (80-100) Mean Corpuscular Hemoglobin 26.1 pg (25-34) Mean Corpuscular Hemoglobin Concent 32.4 g/dl (32-36) Platelet Count 426 K/uL (130-400) Mean Platelet Volume 8.7 fL (7.4-10.4) Neutrophils (%) (Auto) 70.5 % Lymphocytes (%) (Auto) 19.5 % Monocytes (%) (Auto) 7.9 % Eosinophils (%) (Auto) 1.3 % Basophils (%) (Auto) 0.2 % Neutrophils # (Auto) 6.20 K/uL (1.4-6.5) Lymphocytes # (Auto) 1.71 K/uL (1.2-3.4) Monocytes # (Auto) 0.69 K/uL (0.11-0.59) Eosinophils # (Auto) 0.11 K/uL (0-0.5) Basophils # (Auto) 0.02 K/uL (0-0.2) Partial Thromboplastin Ratio 0.9 Last 72 Hours Test 04/23/17 07:14 04/24/17 06:46 04/25/17 14:37 Platelet Count 321 K/uL 374 K/uL 426 K/uL White Blood Count 7.12 K/uL 8.78 K/uL Red Blood Count 3.77 M/uL 4.40 M/uL Hemoglobin 9.7 g/dL 11.5 g/dL Hematocrit 30.6 % 35.5 % Mean Corpuscular Volume 81.2 fL 80.7 fL Mean Corpuscular Hemoglobin 25.7 pg 26.1 pg Mean Corpuscular Hemoglobin Concent 31.7 g/dl 32.4 g/dl Mean Platelet Volume 8.9 fL 8.7 fL Neutrophils (%) (Auto) 63.9 % 70.5 % Lymphocytes (%) (Auto) 24.9 % 19.5 % Monocytes (%) (Auto) 8.7 % 7.9 % Eosinophils (%) (Auto) 1.8 % 1.3 % Basophils (%) (Auto) 0.3 % 0.2 % Neutrophils # (Auto) 4.55 K/uL 6.20 K/uL Lymphocytes # (Auto) 1.77 K/uL 1.71 K/uL Monocytes # (Auto) 0.62 K/uL 0.69 K/uL Eosinophils # (Auto) 0.13 K/uL 0.11 K/uL Basophils # (Auto) 0.02 K/uL 0.02 K/uL Prothromb Time International Ratio 1.0 Assessment & Plan Regarding THERAPEUTIC Enoxaparin: Will initiate ~1mg/kg q12 LMWH in the setting of possible PE. Total dose is 160mg q12 (dose is being split bt *two* 80mg SQ syringes due to Mr. Mendiola bariatric nature.) I spoke w/ Dr. Chris re: his anticoagulation. He was receiving his home eliquis at the time of his admission but was stopped by pulmonary medicine on 04/24/17 (they cited the lack of evidence in obese patients ). He was initiated on a HPR gtt, but due to global anasarca, vascular access became difficult and obtaining PTTs no longer possible. I discussed the use of therapeutic LMWH w/ Dr. Pasquariello VS re-starting his home eliquis. It was decided that we would start LMWH and order Xa's as clinically necessary. Hopefully a PICC line can be placed on 04/26/17. Labs: * Will order Peak Anti-factor Xa level to be drawn 4 hours after 04/27/17 1000 dose to better assess drug elimination & review potential for drug accumulation. Goal Peak Anti-factor Xa level = 0.5-1.0 IU/mL for possible PE. * Ongoing Labs (P&T Approved): CBC q 2 days x 2 weeks, serum creat q 2 days We will continue to monitor this patient and make adjustments as needed. Thank you.
[2017-04-26 07:11] LABS: HEMATOCRIT 34.5 % (42-52); HEMOGLOBIN 11.1 g/dL (14.0-18.0); MEAN CORPUSCULAR HEMOGLOBIN 25.8 pg (25-34); MEAN CORPUSCULAR HGB CONC 32.2 g/dl (32-36); MEAN PLATELET VOLUME 8.8 fL (7.4-10.4); PLATELET COUNT 421 K/uL (130-400); RED CELL DISTRIBUTION WIDTH CV 16.2 % (11.5-14.5); RED CELL DISTRIBUTION WIDTH SD 47.4 fL (36.4-46.3); WHITE BLOOD COUNT 8.44 K/uL (4.8-10.8)
[2017-04-26 07:18] LABS: PTT PATIENT 29.2 SECONDS (21.0-31.0)
[2017-04-26 07:45] LABS: ALBUMIN 1.3 gm/dl (3.4-5.0); CALCIUM 7.4 mg/dl (8.5-10.1); CREATININE 1.96 mg/dl (0.60-1.40); PHOSPHORUS 4.9 mg/dl (2.5-4.9); POTASSIUM 3.7 mmol/L (3.5-5.1)
[2017-04-26] MEDS: AMLODIPINE BESYLATE 5 MG TAB PO SCH (08:22)
[2017-04-26] MEDS: FUROSEMIDE INJ 80 MG in SYRINGE 0 ML IV SCH ×3 (08:22→22:38)
[2017-04-26] MEDS: CARVEDILOL 6.25 MG TAB PO SCH ×2 (08:23→21:15)
[2017-04-26] MEDS: POTASSIUM CHLORIDE 10 MEQ TABCR PO SCH ×2 (08:23→18:22)
[2017-04-26] MEDS: NICOTINE 14 MG/24 HR TDSY TD SCH (08:23)
[2017-04-26] MEDS: LISINOPRIL 5 MG TAB PO SCH (08:32)
--- NOTE | 2017-04-26 11:11 | Nephrology Progress Note ---
Nephrology Progress Note Date of Service Apr 26, 2017. Chief Complaint Nephrosis Subjective No acute events overnight. Star was resting comfortably in bed this morning. He reports minimal improvement in edema. Overall, he otherwise feels well. Thornton remains intact. Urine noted to have a slightly eunice hue this morning. No fevers or chills. No shortness of breath or chest pain. Star has not noticed any bleeding or bruising. IV access secured in EJ. Anticoagulation for DVT with Lovenox started. Review of Systems A complete review of systems was performed. Pertinent positives are noted above. All other systems are negative. Vital Signs Last 8 Hrs Date Time Temp Pulse Resp B/P (MAP) Pulse Ox O2 Delivery O2 Flow Rate FiO2 04/26/17 08:00 Room Air 04/26/17 07:31 36.7 96 18 190/99 (129) 91 Room Air 04/26/17 04:35 93 Room Air 04/26/17 04:09 36.5 98 20 161/83 (109) 92 Room Air Last Recorded Weight Weight (Kilograms): 166.800 Physical Exam General Appearance: no apparent distress, + obese Head: normocephalic, atraumatic Eyes: normal inspection, sclerae normal ENT: normal ENT inspection, pharynx normal Neck: supple, no JVD Respiratory/Chest: lungs clear, no respiratory distress, no accessory muscle use Cardiovascular: regular rate, rhythm, no gallop Abdomen/GI: non tender, soft Genitourinary - Male: + pertinent finding (scrotal edema, thornton draining slightly eunice urine) Extremities/Musculoskelatal: + pertinent finding (generalized edema) Neurologic/Psych: alert, normal mood/affect Family History Hypertension Social History Drug Use: none Marital Status: single Occupation: unemployed Laboratory Results Past 24 Hours 04/25/17 14:37 Red Blood Count 4.40, Mean Corpuscular Volume 80.7, Mean Corpuscular Hemoglobin 26.1, Mean Corpuscular Hemoglobin Concent 32.4, Mean Platelet Volume 8.7, Neutrophils (%) (Auto) 70.5, Lymphocytes (%) (Auto) 19.5, Monocytes (%) (Auto) 7.9, Eosinophils (%) (Auto) 1.3, Basophils (%) (Auto) 0.2, Neutrophils # (Auto) 6.20, Lymphocytes # (Auto) 1.71, Monocytes # (Auto) 0.69, Eosinophils # (Auto) 0.11, Basophils # (Auto) 0.02 04/26/17 06:40 04/26/17 06:40 Test 04/25/17 14:37 04/26/17 06:40 White Blood Count 8.78 K/uL (4.8-10.8) Red Blood Count 4.40 M/uL (4.7-6.1) 4.31 M/uL (4.7-6.1) Hemoglobin 11.5 g/dL (14.0-18.0) Hematocrit 35.5 % (42-52) Mean Corpuscular Volume 80.7 fL (80-100) 80.0 fL (80-100) Mean Corpuscular Hemoglobin 26.1 pg (25-34) 25.8 pg (25-34) Mean Corpuscular Hemoglobin Concent 32.4 g/dl (32-36) 32.2 g/dl (32-36) Platelet Count 426 K/uL (130-400) Mean Platelet Volume 8.7 fL (7.4-10.4) 8.8 fL (7.4-10.4) Neutrophils (%) (Auto) 70.5 % Lymphocytes (%) (Auto) 19.5 % Monocytes (%) (Auto) 7.9 % Eosinophils (%) (Auto) 1.3 % Basophils (%) (Auto) 0.2 % Neutrophils # (Auto) 6.20 K/uL (1.4-6.5) Lymphocytes # (Auto) 1.71 K/uL (1.2-3.4) Monocytes # (Auto) 0.69 K/uL (0.11-0.59) Eosinophils # (Auto) 0.11 K/uL (0-0.5) Basophils # (Auto) 0.02 K/uL (0-0.2) RDW Standard Deviation 47.8 fL (36.4-46.3) 47.4 fL (36.4-46.3) RDW Coefficient of Variation 16.2 % (11.5-14.5) 16.2 % (11.5-14.5) Immature Granulocyte % (Auto) 0.6 % Immature Granulocyte # (Auto) 0.05 K/uL (0.00-0.02) Prothrombin Time 10.7 SECONDS (9.0-12.0) Prothromb Time International Ratio 1.0 (0.9-1.1) Activated Partial Thromboplast Time 22.9 SECONDS (21.0-31.0) 29.2 SECONDS (21.0-31.0) Partial Thromboplastin Ratio 0.9 1.1 Anion Gap 7.0 mmol/L (3-11) Est Creatinine Clear Calc Drug Dose 83.5 ml/min Estimated GFR () 50.9 Estimated GFR (Non- 44.0 BUN/Creatinine Ratio 12.9 (10-20) Calcium Level 7.4 mg/dl (8.5-10.1) Phosphorus Level 4.9 mg/dl (2.5-4.9) Albumin 1.3 gm/dl (3.4-5.0) Allergies Coded Allergies: No Known Allergies (Unverified , 04/22/17) Medications Current Inpatient Medications Medications (Trade) Dose Ordered Sig/Silvio Route Start Time Stop Time Status Last Admin Dose Admin Ioversol (Optiray 320) 100 ml UD PRN IV 04/22/17 17:15 04/26/17 17:14 Ceftriaxone Sodium 1 gm/ Dextrose 50 ml @ 100 mls/hr Q24H IV 04/23/17 20:00 04/28/17 19:59 04/25/17 20:41 100 MLS/HR Acetaminophen (Tylenol Tab) 650 mg Q4H PRN PO 04/22/17 21:00 05/22/17 20:59 04/24/17 14:58 650 MG Al Hydrox/Mg Hydrox/Simethicone (Maalox Max Susp) 15 ml Q4H PRN PO 04/22/17 21:00 05/22/17 20:59 Magnesium Hydroxide (Milk Of Magnesia Susp) 30 ml Q12H PRN PO 04/22/17 21:00 05/22/17 20:59 Ondansetron HCl (Zofran Inj) 4 mg Q6H PRN IV 04/22/17 21:00 05/22/17 20:59 Polyethylene (Miralax Powder Packet) 17 gm DAILY PRN PO 04/22/17 21:00 05/22/17 20:59 Potassium Chloride (Klor-Con M10) 10 meq BID17 PO 04/22/17 23:45 05/22/17 23:44 04/26/17 08:23 10 MEQ Nicotine (Nicoderm Cq 14MG Patch) 1 patch QAM TD 04/23/17 00:45 05/23/17 00:44 04/26/17 08:23 1 PATCH Miscellaneous (Remove Nicoderm Patch) 1 ea HS N/A 04/23/17 21:00 05/23/17 20:59 04/25/17 21:00 1 EA Hydralazine HCl (HydrALAZINE INJ) 20 mg Q6 PRN IV. 04/23/17 09:15 05/23/17 09:14 04/24/17 22:11 20 MG Hydralazine HCl (Apresoline Tab) 100 mg TID PO 04/24/17 21:00 05/24/17 20:59 04/26/17 08:23 100 MG Amlodipine Besylate (Norvasc Tab) 5 mg QAM PO 04/25/17 09:00 05/25/17 08:59 04/26/17 08:22 5 MG Furosemide 80 mg/ Syringe 8 ml @ 4 mls/min BID17 IV 04/25/17 17:00 05/24/17 20:59 04/26/17 08:22 4 MLS/MIN Carvedilol (Coreg Tab) 6.25 mg BID PO 04/25/17 21:00 05/25/17 20:59 04/26/17 08:23 6.25 MG Miconazole Nitrate (Desenex Powder) 1 appln BID PRN EXT 04/25/17 13:00 05/25/17 12:59 Enoxaparin Sodium (Lovenox Inj) 160 mg Q12@1000,2200 SQ 04/25/17 23:30 05/25/17 23:29 04/25/17 23:57 160 MG Miscellaneous Information 1 ea UD PRN N/A 04/25/17 23:00 05/25/17 22:59 Lisinopril (Zestril Tab) 5 mg QAM PO 04/26/17 09:00 05/26/17 08:59 04/26/17 08:32 5 MG Impression (1) Renal insufficiency (2) Proteinuria (3) Anasarca (4) Hypoalbuminemia (5) Anemia Star is a 31 year-old male presenting with nephrotic syndrome. Creatinine stable stable at 1.8-2.0 mg/dL. Good urine output with diuretics. Furosemide 80 mg IV x 3 doses yesterday for net negative fluid balance of 1.5 L/d. Blood pressure remains elevated. Will try starting a low dose DAVID today. Lisinopril 5 mg daily ordered. 24 hour urine collection documented >11 grams/d proteinuria. Urine is notable for 30+ WBC, 30+ RBC. Bacteriuria improved. Thornton placed for accurate I/O's and clean catch urine while scrotal edema improves. CT scan of the chest, abdomen and pelvis documented enlarged but otherwise structurally normal kidneys with diffuse edema as well as enlargement of the liver and spleen. Hilar adenopathy is also appreciated. TTE documented significant pulmonary hypertension with an elevated RA pressure and dilated IVC. DVT noted. Primary goal remains diuresis. Furosemide increased to 80 mg TID. Star remains on IV diuretics. Kidney biopsy will be needed. Given habitus, I would favor CT guided biopsy. This will need to be coordinated at a tertiary care center. Additionally, coordinating with anticoagulation will also be necessary. Past medical history is notable for a history of DVT/PE, chronic anticoagulation with Eliquis, obesity, history of IV drug abuse, history of spinal osteomyelitis. Recommendations Nephrosis: -- Continue furosemide to encourage net negative fluid balance (furosemide increased to 80 mg TID) -- Sodium restrict diet -- Monitor metabolic profile daily -- Kidney biopsy to be arranged at IR at outside facility -- SPEP/immunofixation pending -- HIV negative -- Hepatitis serologies negative -- Start lisinopril 5 mg daily today Hypertension: -- Hydralazine 100 mg TID -- Increased diuretics -- Lisinopril started today -- Patient also on Coreg and amlodipine Pyuria: -- Currently on ceftriaxone for possible UTI -- Culture polymicrobial but now cleared -- Suggest completing 7 day course of treatment for complicated UTI Hematuria, gross: -- Etiology unclear - possibly cystitis -- CT reviewed
[2017-04-26] MEDS: ENOXAPARIN 80 MG/0.8 ML SYR SQ SCH ×2 (11:21→22:40)
--- NOTE | 2017-04-26 14:25 | Hospitalist Progress Note ---
Hospitalist Progress Note Date of Service Apr 26, 2017. (Gricel Kelly ., RAEGANC) Subjective Pt evaluation today including: conversation w/ patient, physical exam, chart review, lab review, conversation w/ service delivery management consultant (spoke with Dr. Saeed naranjo), review of inpatient medication list Pain: None PO Intake: Tolerating PO diet Voiding: thornton catheter in place The patient reports feeling about the same. He states his scrotal edema has not changed. He denies any shortness of breath or dyspnea on exertion. He states he is not sleeping well and is therefore fatigued. The patient denies fevers, chills, sweats, chest pain, palpitations, claudication, cough, wheezing , shortness of breath, nausea, vomiting, abdominal pain, dysuria, hematuria, urinary retention, paralysis, weakness, numbness and tingling. Additional Comments: See HPI for pertinent positives and negatives. All other systems reviewed and negative. (Gricel Kelly ., PA-C) Objective Vital Signs Date Time Temp Pulse Resp B/P (MAP) Pulse Ox O2 Delivery O2 Flow Rate FiO2 04/26/17 12:00 Room Air 04/26/17 11:44 36.7 97 18 181/84 (116) 93 Room Air 04/26/17 08:00 Room Air 04/26/17 07:31 36.7 96 18 190/99 (129) 91 Room Air 04/26/17 04:35 93 Room Air 04/26/17 04:09 36.5 98 20 161/83 (109) 92 Room Air 04/26/17 00:11 36.6 98 20 170/94 (119) 90 Room Air 04/25/17 23:40 93 Room Air 04/25/17 20:00 Room Air 04/25/17 19:57 36.4 96 20 149/92 (111) 93 Room Air 04/25/17 16:02 Room Air 04/25/17 15:58 36.7 89 20 164/74 (104) 94 Room Air (Gricel Kelly, CAROL-C) Physical Exam Notes: General appearance: +Morbidly obese. Fatigued. Well-developed, well-nourished , no apparent distress Head: Normocephalic, atraumatic Eyes: Normal inspection, PERRL, EOMI ENT: Normal ENT inspection, hearing grossly normal, pharynx normal Neck: Supple, no JVD, trachea midline Respiratory/Chest: Lungs clear to auscultation, normal breath sounds, no respiratory distress Cardiovascular: Regular rate & rhythm, no gallop, no murmur Abdomen/GI: Normal bowel sounds, non-tender, soft : +Thortnon in place. 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 Massive scrotal edema. Extremities/Musculoskeletal: +2+ pitting edema. Normal inspection, no calf tenderness, no pedal edema Neurological/Psych: Alert, normal mood/affect, oriented x 3 Skin: Normal color, warm/dry, no rash (Gricel Kelly, PASTORA) Laboratory Results Last 24 Hours Test 04/25/17 14:37 04/26/17 06:40 White Blood Count 8.78 K/uL 8.44 K/uL Red Blood Count 4.40 M/uL 4.31 M/uL Hemoglobin 11.5 g/dL 11.1 g/dL Hematocrit 35.5 % 34.5 % Mean Corpuscular Volume 80.7 fL 80.0 fL Mean Corpuscular Hemoglobin 26.1 pg 25.8 pg Mean Corpuscular Hemoglobin Concent 32.4 g/dl 32.2 g/dl Platelet Count 426 K/uL 421 K/uL Mean Platelet Volume 8.7 fL 8.8 fL Neutrophils (%) (Auto) 70.5 % Lymphocytes (%) (Auto) 19.5 % Monocytes (%) (Auto) 7.9 % Eosinophils (%) (Auto) 1.3 % Basophils (%) (Auto) 0.2 % Neutrophils # (Auto) 6.20 K/uL Lymphocytes # (Auto) 1.71 K/uL Monocytes # (Auto) 0.69 K/uL Eosinophils # (Auto) 0.11 K/uL Basophils # (Auto) 0.02 K/uL RDW Standard Deviation 47.8 fL 47.4 fL RDW Coefficient of Variation 16.2 % 16.2 % Immature Granulocyte % (Auto) 0.6 % Immature Granulocyte # (Auto) 0.05 K/uL Prothrombin Time 10.7 SECONDS Prothromb Time International Ratio 1.0 Activated Partial Thromboplast Time 22.9 SECONDS 29.2 SECONDS Partial Thromboplastin Ratio 0.9 1.1 Sodium Level 141 mmol/L Potassium Level 3.7 mmol/L Chloride Level 108 mmol/L Carbon Dioxide Level 26 mmol/L Anion Gap 7.0 mmol/L Blood Urea Nitrogen 25 mg/dl Creatinine 1.96 mg/dl Est Creatinine Clear Calc Drug Dose 83.5 ml/min Estimated GFR () 50.9 Estimated GFR (Non- 44.0 BUN/Creatinine Ratio 12.9 Random Glucose 90 mg/dl Calcium Level 7.4 mg/dl Phosphorus Level 4.9 mg/dl Albumin 1.3 gm/dl (Gricel Kelly ., PA-C) Assessment and Plan 31 y/o male with a history of DVT/PE, morbid obesity, h/o IVDU, and previous lumbar osteomyelitis who presents with worsening lower extremity edema, now severely affecting his scrotum as well and his ability to walk. Anasarca, acute renal failure, proteinuria -Admit to telemetry. No acute events overnight. Pt in SR with HR 80s-90s -Nephrology consulted, appreciate recs: Increase furosemide today. Start lisinopril 5 mg daily. Recommend treating for complicated UTI w/7 day course of antibiotics. -Lasix increased to 80 mg IV TID -Start lisinopril 5 mg PO qd -UO 3000 cc, net balance -1261 cc on 04/26 -Hep B & C, HIV negative -24 hr urine protein collection with [place] 85138 mg of protein -Creatinine 1.96 on 04/26, stable from 1.9 -Immuno studies pending -Echocardiogram shows EF=45-50%, mild concentric left ventricular hypertrophy. Mild inferior base to mid hypokinesis. Severe pulmonary hypertension w/PASP 65- 70 mmHg and dilated IVC. HTN--BP remains poorly controlled -Continue amlodipine 5 mg PO qd, hydralazine 100 mg PO TID -Continue 6.25 mg PO BID -Lisinopril as above Pulmonary hypertension -Cardiology consulted, appreciate recs: Recommend right heart cath at some point to further evaluate, hold off for now. Possible chronic thromboembolic disease. Asymmetric right hilar enlargement, mediastinal lymphadenopathy -Pulmonology consulted, appreciate recs: Check Doppler ultrasounds for DVTs. Lymphadenopathy likely reactive. Hold off on right heart cath. H/o DVT/PE, current LLE DVT -Previous DVT/PE in 2015 treated at [facility]. Per records, pt was supposed to be on lifelong anticoagulation. He was started on Eliquis but had at some point stopped taking it. He was then restarted on the Eliquis in Nov 2016 by his PCP due to his lower extremity edema -Small non-occlusive DVT in left common femoral vein, age indeterminate -RLE and upper extremities negative for DVT -Heparin drip changed to therapeutic Lovenox due to difficulty with IV access/ lab monitoring Possible UTI -UA dirty, urine culture contaminated. Not able to get good clean catch due to massive scrotal edema -Repeat urine culture negative -Continue Rocephin, day #5 of 7. 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 Will check ASO titer HALLE -Significant desaturation with overnight pulse ox study. 233 minutes spent under 88% -Pt was refusing CPAP, encouraged him to at least try H/O of osteomyelitis/Discitis--noted -Patient was transferred to [facility] and had IV ABX- sent home with PICC line. No surgical intervention -Cr. at the time was normal -hep c, b and HIV were negative Code Status -Level I, FULL RESUSCITATION STATUS (Gricel Kelly ., PA-C) PA Physician Supervision Note: I interviewed and examined the patient. Discussed with Gricel Kelly PAC and agree with findings and plan as documented in the note. Any exceptions or clarifications are listed here: None Patient seen and feels he is much more swollen yesterday especially in his upper arms is no signs of compartment syndrome but he says he feels like he is blowing up he has had a 6 kg weight loss and we are continuing to attempt improve diuresis and blood pressure control by escalating antihypertensives and diuretics Vital signs show temp 36 9 pulse 96 respiration rate 18 BP is 190/99 O2 sats 91 room air as noted nephrology is increase his Lasix to 3 times a day and start lisinopril This patient's cardiac exam is distant but regular with decreased at the bases he is 2-3+ edema to all extremities and scrotum is massively swollen a Thornton catheter insures prevention of urinary outlet obstruction due to distortion from his scrotal swelling is I personally spoke to Dr. Cohen today this patient if he does not improve significantly over next 24 hours likely may need referral to tertiary center for renal biopsy to better determine the etiology of his renal failure and continued aggressive attempts at diuresis Documented By: Som Marie (Som Marie M.D.)
[2017-04-26] MEDS: CEFTRIAXONE SOD INJ 1 GM in DEXTROSE 5% ADD-VANTAGE 50ML 50 ML IV SCH (20:01)
[2017-04-27] VITALS (10 sets, daily range): BP systolic 136–168; BP diastolic 74–90; PULSE 89–103; TEMP 36.5–36.9; O2SAT 83–94
[2017-04-27] MEDS: FUROSEMIDE INJ 80 MG in SYRINGE 0 ML IV SCH ×2 (05:58→14:38)
[2017-04-27 07:20] LABS: HEMOGLOBIN 10.2 g/dL (14.0-18.0); MEAN CELL VOLUME 80.6 fL (80-100); MEAN CORPUSCULAR HEMOGLOBIN 25.7 pg (25-34); MEAN CORPUSCULAR HGB CONC 31.9 g/dl (32-36); MEAN PLATELET VOLUME 8.6 fL (7.4-10.4); PLATELET COUNT 371 K/uL (130-400); RED CELL DISTRIBUTION WIDTH CV 16.3 % (11.5-14.5); RED CELL DISTRIBUTION WIDTH SD 47.9 fL (36.4-46.3); WHITE BLOOD COUNT 7.82 K/uL (4.8-10.8)
[2017-04-27 07:29] LABS: PTT PATIENT 27.5 SECONDS (21.0-31.0)
[2017-04-27] MEDS: POTASSIUM CHLORIDE 10 MEQ TABCR PO SCH ×2 (07:40→16:37)
[2017-04-27] MEDS: AMLODIPINE BESYLATE 5 MG TAB PO SCH (07:40)
[2017-04-27] MEDS: NICOTINE 14 MG/24 HR TDSY TD SCH (07:41)
[2017-04-27] MEDS: CARVEDILOL 6.25 MG TAB PO SCH ×2 (07:41→20:58)
[2017-04-27] MEDS: LISINOPRIL 5 MG TAB PO SCH (07:41)
[2017-04-27 07:45] LABS: ALBUMIN 1.3 gm/dl (3.4-5.0); CALCIUM 7.6 mg/dl (8.5-10.1); CREATININE 1.81 mg/dl (0.60-1.40); POTASSIUM 3.6 mmol/L (3.5-5.1)
--- NOTE | 2017-04-27 08:59 | Nephrology Progress Note ---
Nephrology Progress Note Date of Service Apr 27, 2017. Chief Complaint Nephrosis Subjective No acute events overnight. Star reports no significant interval change. UE edema has increased. He remains debilitated due to the degree of edema. Net negative 4.7 L overnight. Blood pressure slightly improved. No shortness of breath but supplemental O2 applied overnight. Bowie draining yellow urine. No fevers or chills. Review of Systems A complete review of systems was performed. Pertinent positives are noted above. All other systems are negative. Vital Signs Last 8 Hrs Date Time Temp Pulse Resp B/P (MAP) Pulse Ox O2 Delivery O2 Flow Rate FiO2 04/27/17 08:00 Nasal Cannula 2.0 04/27/17 07:19 36.8 93 18 156/74 (101) 94 Room Air 04/27/17 04:33 93 Nasal Cannula 2.0 04/27/17 04:00 93 Room Air 04/27/17 04:00 93 Room Air 04/27/17 03:47 93 Nasal Cannula 2.0 04/27/17 03:47 36.7 97 24 168/84 (112) 85 Room Air Last Recorded Weight Weight (Kilograms): 160.000 Physical Exam General Appearance: no apparent distress, + obese Head: normocephalic, atraumatic Eyes: normal inspection, sclerae normal ENT: normal ENT inspection, pharynx normal Neck: supple, + pertinent finding Respiratory/Chest: no respiratory distress, no accessory muscle use, + decreased breath sounds Cardiovascular: regular rate, rhythm, no gallop Abdomen/GI: non tender, soft Genitourinary - Male: + pertinent finding (Bowie draining yellow urine) Extremities/Musculoskelatal: + swelling, + pertinent finding (generalized edema ) Neurologic/Psych: alert, normal mood/affect Family History Hypertension Social History Drug Use: none Marital Status: single Occupation: unemployed Laboratory Results Past 24 Hours 04/27/17 06:55 04/27/17 06:55 Test 04/27/17 06:55 Red Blood Count 3.97 M/uL (4.7-6.1) Mean Corpuscular Volume 80.6 fL (80-100) Mean Corpuscular Hemoglobin 25.7 pg (25-34) Mean Corpuscular Hemoglobin Concent 31.9 g/dl (32-36) RDW Standard Deviation 47.9 fL (36.4-46.3) RDW Coefficient of Variation 16.3 % (11.5-14.5) Mean Platelet Volume 8.6 fL (7.4-10.4) Activated Partial Thromboplast Time 27.5 SECONDS (21.0-31.0) Partial Thromboplastin Ratio 1.1 Anion Gap 7.0 mmol/L (3-11) Est Creatinine Clear Calc Drug Dose 88.2 ml/min Estimated GFR () 56.1 Estimated GFR (Non- 48.4 BUN/Creatinine Ratio 12.7 (10-20) Calcium Level 7.6 mg/dl (8.5-10.1) Phosphorus Level 5.0 mg/dl (2.5-4.9) Albumin 1.3 gm/dl (3.4-5.0) Anti-Streptolysin O Antibody Screen POS IU/ml (<200 IU) Anti-Streptolysin O Antibody Titer 400 IU/ml (<200 IU) Allergies Coded Allergies: No Known Allergies (Unverified , 04/22/17) Medications Current Inpatient Medications Medications (Trade) Dose Ordered Sig/Silvio Route Start Time Stop Time Status Last Admin Dose Admin Ceftriaxone Sodium 1 gm/ Dextrose 50 ml @ 100 mls/hr Q24H IV 04/23/17 20:00 04/28/17 19:59 04/26/17 20:01 100 MLS/HR Acetaminophen (Tylenol Tab) 650 mg Q4H PRN PO 04/22/17 21:00 05/22/17 20:59 04/24/17 14:58 650 MG Al Hydrox/Mg Hydrox/Simethicone (Maalox Max Susp) 15 ml Q4H PRN PO 04/22/17 21:00 05/22/17 20:59 Magnesium Hydroxide (Milk Of Magnesia Susp) 30 ml Q12H PRN PO 04/22/17 21:00 05/22/17 20:59 Ondansetron HCl (Zofran Inj) 4 mg Q6H PRN IV 04/22/17 21:00 05/22/17 20:59 Polyethylene (Miralax Powder Packet) 17 gm DAILY PRN PO 04/22/17 21:00 05/22/17 20:59 Potassium Chloride (Klor-Con M10) 10 meq BID17 PO 04/22/17 23:45 05/22/17 23:44 04/27/17 07:40 10 MEQ Nicotine (Nicoderm Cq 14MG Patch) 1 patch QAM TD 04/23/17 00:45 05/23/17 00:44 04/27/17 07:41 1 PATCH Miscellaneous (Remove Nicoderm Patch) 1 ea HS N/A 04/23/17 21:00 05/23/17 20:59 04/26/17 21:00 1 EA Hydralazine HCl (HydrALAZINE INJ) 20 mg Q6 PRN IV. 04/23/17 09:15 05/23/17 09:14 04/24/17 22:11 20 MG Hydralazine HCl (Apresoline Tab) 100 mg TID PO 04/24/17 21:00 05/24/17 20:59 04/27/17 07:40 100 MG Amlodipine Besylate (Norvasc Tab) 5 mg QAM PO 04/25/17 09:00 05/25/17 08:59 04/27/17 07:40 5 MG Carvedilol (Coreg Tab) 6.25 mg BID PO 04/25/17 21:00 05/25/17 20:59 04/27/17 07:41 6.25 MG Miconazole Nitrate (Desenex Powder) 1 appln BID PRN EXT 04/25/17 13:00 05/25/17 12:59 Enoxaparin Sodium (Lovenox Inj) 160 mg Q12@1000,2200 SQ 04/25/17 23:30 05/25/17 23:29 04/26/17 22:40 160 MG Miscellaneous Information 1 ea UD PRN N/A 04/25/17 23:00 05/25/17 22:59 Lisinopril (Zestril Tab) 5 mg QAM PO 04/26/17 09:00 05/26/17 08:59 04/27/17 07:41 5 MG Furosemide 80 mg/ Syringe 8 ml @ 4 mls/min [id number] IV 04/27/17 14:00 05/24/17 20:59 Impression (1) Renal insufficiency (2) Proteinuria (3) Anasarca (4) Hypoalbuminemia (5) Anemia Star is a 31 year-old male presenting with nephrotic syndrome. Creatinine stable stable at 1.8-2.0 mg/dL. Good urine output with diuretics. Furosemide 80 mg IV x 3 doses yesterday for net negative fluid balance of 4.5 L. Blood pressure improving. Tolerating Lisinopril. 24 hour urine collection documented >11 grams/d proteinuria. Urine is notable for 30+ WBC, 30+ RBC. Bacteriuria improved. Bowie placed for accurate I/O's and for clean catch urine while scrotal edema improves. I discussed with hotel breakfast attendant from [place] yesterday. Would like to coordinate transfer to [facility] to expedite renal biopsy for definitive diagnosis. Dr. Maury Moore has offered to follow the patient and coordinate follow up post discharge. Patient continues to require inpatient status for diuresis, monitoring renal function, anticoagulation and appropriate monitoring for kidney biopsy given comorbid conditions. Recommendations Nephrosis: -- Continue furosemide to encourage net negative fluid balance (furosemide increased to 80 mg TID) -- Sodium restrict diet -- Monitor metabolic profile daily -- Kidney biopsy to be arranged at IR at [facility] - inpatient transfer suggested. Dr. Maury Moore has offered to follow for nephrologic care at [facility] -- SPEP/immunofixation pending -- HIV negative -- Hepatitis serologies negative -- Continue lisinopril 10 mg daily today Hypertension: -- Hydralazine 100 mg TID -- Increased diuretics -- Lisinopril 10 mg daily -- Patient also on Coreg and amlodipine Pyuria: -- Ceftriaxone for UTI -- Culture polymicrobial but now cleared Hematuria, gross: -- Etiology unclear - possibly cystitis -- CT reviewed
[2017-04-27] MEDS: ENOXAPARIN 80 MG/0.8 ML SYR SQ SCH (10:18)
[2017-04-27] MEDS ORDERED: POTA10CA28 PO (12:13)
[2017-04-27] MEDS ORDERED: NRV5 PO (12:13)
[2017-04-27] MEDS ORDERED: CRG625 PO (12:13)
[2017-04-27] MEDS ORDERED: LVNIS80 SQ (12:13)
[2017-04-27] MEDS ORDERED: MCTP EXT (12:13)
[2017-04-27] MEDS ORDERED: NICO14DI5 TD (12:13)
[2017-04-27] MEDS ORDERED: LSN5 PO (12:13)
[2017-04-27] MEDS ORDERED: APR50 PO (12:13)
[2017-04-27] MEDS ORDERED: FRS/80 IV (12:13)
--- NOTE | 2017-04-27 12:14 | Discharge Instructions ---
Discharge Instructions Date of Service Apr 28, 2017. Admission Reason for Admission: Anasarca, Pleural Effusion Discharge Discharge Diagnosis / Problem: acute nephritis Discharge Goals Goal(s): Diagnostic testing, Therapeutic intervention Activity Recommendations Activity Limitations: as noted below Lifting Limitations: gradually increase as tolerated . Current Hospital Diet Patient's current hospital diet: Regular Diet, Low Sodium Diet (2gm Na) Discharge Diet Recommended Diet: Renal Diet Pending Studies Studies pending at discharge: no Laboratory Results Lipid Panel Test 04/23/17 07:14 Range/Units Triglycerides Level 143 0-150 mg/dl Cholesterol Level 92 0-200 mg/dl HDL Cholesterol 17 mg/dl Cholesterol/HDL Ratio 5.4 LDL Cholesterol, Calculated 46 mg/dl Medical Emergencies . Who to Call and When: Medical Emergencies: If at any time you feel your situation is an emergency, please call 911 immediately. . Non-Emergent Contact Non-Emergency issues call your: Primary Care Provider, Grade Teacher Call Non-Emergent contact if: temperature is above 101, your pain is unusual for you . . "Provider Documentation" section prepared by Som Marie. . VTE Core Measure Inpt VTE Proph given/why not?: Other Anticoagulation
--- NOTE | 2017-04-27 16:43 | Pharmacy Progress Note ---
Enoxaparin Dosing Consult Date of Service: Apr 27, 2017. Pharmacy Dosing Scope Pharmacy is consulted to review the use of enoxaparin in a special risk patient population possibly prone to accumulate drug: bariatric/renal impairment & to initiate/continue/recommend change in the setting of ordered THERAPEUTIC enoxaparin sub-q dosing therapy, order appropriate labs and adjust drug/dose/ frequency. Subjective The patient is a 31 year old male admitted on Apr 22, 2017 at 20:57 for Anasarca , Pleural Effusion. Patient is currently on day # 3 of THERAPEUTIC enoxaparin sub-q for LLE DVT. Unable to utilize heparin infusion d/t poor vascular access. Objective Height (Feet): 5 Height (Inches): 9.00 Weight (Kilograms): 160.000 Laboratory Results: Last 24 Hours Test 04/27/17 06:55 Activated Partial Thromboplast Time 27.5 SECONDS (21.0-31.0) Blood Urea Nitrogen 23 mg/dl (7-18) Creatinine 1.81 mg/dl (0.60-1.40) Hematocrit 32.0 % (42-52) Hemoglobin 10.2 g/dL (14.0-18.0) Partial Thromboplastin Ratio 1.1 Platelet Count 371 K/uL (130-400) Last 72 Hours Test 04/25/17 14:37 04/26/17 06:40 04/27/17 06:55 04/27/17 14:44 White Blood Count 8.78 K/uL Red Blood Count 4.40 M/uL Hemoglobin 11.5 g/dL Hematocrit 35.5 % Mean Corpuscular Volume 80.7 fL Mean Corpuscular Hemoglobin 26.1 pg Mean Corpuscular Hemoglobin Concent 32.4 g/dl Platelet Count 426 K/uL 421 K/uL 371 K/uL Mean Platelet Volume 8.7 fL Neutrophils (%) (Auto) 70.5 % Lymphocytes (%) (Auto) 19.5 % Monocytes (%) (Auto) 7.9 % Eosinophils (%) (Auto) 1.3 % Basophils (%) (Auto) 0.2 % Neutrophils # (Auto) 6.20 K/uL Lymphocytes # (Auto) 1.71 K/uL Monocytes # (Auto) 0.69 K/uL Eosinophils # (Auto) 0.11 K/uL Basophils # (Auto) 0.02 K/uL Prothromb Time International Ratio 1.0 Heparin Anti-Xa Act, Low Molec Wt 1.16 IU/ML Assessment & Plan Xa level slightly above goal at 1.16 - drawn appropriate 4 hrs after dose Although this does not correlate directly with antithrombotic activity, it does indicate accumulation in obese patient. Will decrease by ~20%. Regarding THERAPEUTIC Enoxaparin: Change to enoxaparin 129 mg (0.8 mg/kg, dosing utilized for ease of administration with markings) sub-q every 12 hours based on review of the following special population risk factors for drug accumulation: bariatric/ renal impairment Labs: * Repeat Xa level to be ordered after at least 4 doses if patient still here - if transferred prior, recommend checking after 2/23 AM dose * Ongoing Labs (P&T Approved): CBC q 2 days x 2 weeks, serum creat q 2 days We will continue to monitor this patient and make adjustments as needed. Thank you.
--- NOTE | 2017-04-27 18:09 | Discharge Summary ---
Discharge Summary Date of Service Apr 27, 2017. Discharge Summary Admission Date: Apr 22, 2017 at 20:57 Discharge Date: Apr 29, 2017 Discharge Disposition: Acute care facility Principal Diagnosis: acute nephtitis with anasarca Consultations: Dr Ricco [place] from nephrology Medication Reconciliation New Medications: Furosemide (Lasix) 80 Mg Tab 80 MG IV TID for 90 Days, #270 TAB Amlodipine Besylate (Amlodipine Besylate) 5 Mg Tab 5 MG PO QAM, #30 TAB Carvedilol (Carvedilol) 6.25 Mg Tab 12.5 MG PO BID, #60 TAB Enoxaparin (Lovenox) 80 Mg/0.8 Ml Inj 150 MG SQ UD, #60 DOSE daily at 9 am pt is accumulating on bid dosing Hydralazine HCl (Hydralazine HCl) 50 Mg Tab 100 MG PO TID, #90 TAB Lisinopril (Lisinopril) 5 Mg Tab 5 MG PO QAM, #30 TAB Miconazole Nitrate (Desenex Shake Powder) 43 Appln/43 Gm Powd 1 APPLN EXT BID PRN for Affected Skin Folds for 1 Day, #60 Nicotine (Nicoderm Cq 14MG Patch) 14 Mg/24 Hr Dis 1 PATCH TD QAM, #30 Potassium Chloride (Micro-K Ext Rel) 10 Meq Capcr 10 MEQ PO BID17, #60 DOSE Discontinued Medications: Apixaban (Eliquis) 5 Mg Tab 5 MG PO BID Discharge Exam Review of Systems: Constitutional: + weakness, + fatigue, No fever, No chills Respiratory: + dyspnea on exertion, No cough Cardiovascular: + edema, No chest pain Abdomen: No pain, No nausea Genitourinary - Male: + urinary hesitancy, + urinary retention Neurologic: + weakness, No memory loss Psychiatric: + depression symptoms, No anhedonism Physical Exam: General Appearance: WD/WN, + moderate distress Eyes: normal inspection, sclerae normal Neck: supple, + JVD Respiratory/Chest: + respiratory distress (mild), + decreased breath sounds Cardiovascular: regular rate, rhythm, no murmur Abdomen / GI: normal bowel sounds, non tender, soft Extremities: + pedal edema, + swelling (massive scrotal swelling) Neurologic/Psychiatric: alert, oriented x 3 Skin: + pertinent finding (intertrigo) Hospital Course 31 y/o male with a history of DVT/PE, morbid obesity, h/o IVDU, and previous lumbar osteomyelitis( culture negative but treated with 6 wks of IV antibiotics via [place]) who presents with worsening anasarca, that although has had urine output in the negative still has progressed to worsened clinical swelling Anasarca, acute renal failure, proteinuria -Nephrology consulted, iv furosemide Started lisinopril 5 mg daily 04/26. treated for suspected UTI poa with rocephin iv -Hep B & C, HIV negative -24 hr urine protein collection with over 99942 mg of protein -Creatinine running near 1.9 -Immuno studies pending -Echocardiogram shows EF=45-50%, mild concentric left ventricular hypertrophy. Mild inferior base to mid hypokinesis. Severe pulmonary hypertension w/PASP 65- 70 mmHg and dilated IVC. HTN--BP remains poorly controlled amlodipine 5 mg PO qd, hydralazine 100 mg PO TID -Continue 6.25 mg PO BID, lisinopril Pulmonary hypertension suspected on echo -Cardiology consulted, Recommend right heart cath at some point to further evaluate. Possible chronic thromboembolic disease. Asymmetric right hilar enlargement, mediastinal lymphadenopathy -Pulmonology consulted, Doppler ultrasounds with subacute partially occlusive popliteal thrombus on full dose lovenox until procedure considered H/o DVT/PE, current LLE DVT -Previous DVT/PE in 2014 treated at [facility]. Per records, pt was supposed to be on lifelong anticoagulation. He was started on Eliquis but had at some point stopped taking it. He was then restarted on the Eliquis in Nov 2016 by his PCP due to his lower extremity edema -Small non-occlusive DVT in left common femoral vein, age indeterminate -RLE and upper extremities negative for DVT therapeutic Lovenox due to difficulty with IV access/lab monitoring Possible UTI-Repeat urine culture negative -Continue Rocephin treatment for 6 days HALLE-Significant desaturation with overnight pulse ox study. 233 minutes spent under 88% -Pt was refusing CPAP, conitnue to encourage H/O of osteomyelitis/Discitis-no current back pain Code Status -Level I, FULL RESUSCITATION STATUS Total Time Spent: Greater than 30 minutes This includes examination of the patient, discharge planning, medication reconciliation, and communication with other providers. Discharge Instructions Please refer to the electronic Patient Visit Report (Discharge Instructions) for additional information.
--- NOTE | 2017-04-27 18:11 | Progress Note ---
Subjective Date of Service: Apr 27, 2017. Subjective pt feels his arms are tighter and he has marked difficulty assisting in transfer , no loss of sensation or paresthesias Problem List Medical Problems: (1) Acute kidney injury Status: Acute (2) Hypoxia Status: Acute (3) Pulmonary edema Status: Acute (4) Spinal epidural abscess Status: Acute Review of Systems Constitutional: + weakness, + fatigue, No fever, No chills Respiratory: + shortness of breath, + dyspnea on exertion Cardiac: + edema, No chest pain Abdomen: No pain, No nausea Musculoskeletal: + joint pain, + muscle pain, + swelling Male : + slowing stream, + problem reported (massive scrotal swelling) Psychiatric: + depression symptoms, No anhedonism Objective Vital Signs Date Time Temp Pulse Resp B/P (MAP) Pulse Ox O2 Delivery O2 Flow Rate FiO2 04/27/17 16:00 Room Air 04/27/17 15:46 36.7 98 20 155/90 (111) 94 Room Air 04/27/17 12:00 Nasal Cannula 2.0 04/27/17 11:29 36.9 89 20 153/76 (101) 91 Room Air 04/27/17 08:00 Nasal Cannula 2.0 04/27/17 07:19 36.8 93 18 156/74 (101) 94 Room Air 04/27/17 04:33 93 Nasal Cannula 2.0 04/27/17 04:00 93 Room Air 04/27/17 04:00 93 Room Air 04/27/17 03:47 93 Nasal Cannula 2.0 04/27/17 03:47 36.7 97 24 168/84 (112) 85 Room Air 04/27/17 00:14 36.6 96 20 136/80 (98) 92 Room Air 04/27/17 00:00 93 Room Air 04/26/17 22:50 37.0 99 20 142/78 (99) 93 Room Air 04/26/17 20:00 92 Room Air 04/26/17 18:40 36.6 100 18 170/92 (118) 92 Room Air Physical Exam General Appearance: + moderate distress, + obese Eyes: normal inspection, sclerae normal Neck: supple, + JVD Respiratory/Chest: chest non-tender, + decreased breath sounds Cardiovascular: regular rate, rhythm, no murmur Abdomen: normal bowel sounds, non tender, soft Extremities: + pedal edema, + swelling Neurologic/Psychiatric: alert, oriented x 3 Laboratory Results Last 24 Hours Test 04/27/17 06:55 04/27/17 14:44 White Blood Count 7.82 K/uL Red Blood Count 3.97 M/uL Hemoglobin 10.2 g/dL Hematocrit 32.0 % Mean Corpuscular Volume 80.6 fL Mean Corpuscular Hemoglobin 25.7 pg Mean Corpuscular Hemoglobin Concent 31.9 g/dl RDW Standard Deviation 47.9 fL RDW Coefficient of Variation 16.3 % Platelet Count 371 K/uL Mean Platelet Volume 8.6 fL Activated Partial Thromboplast Time 27.5 SECONDS Partial Thromboplastin Ratio 1.1 Sodium Level 142 mmol/L Potassium Level 3.6 mmol/L Chloride Level 107 mmol/L Carbon Dioxide Level 28 mmol/L Anion Gap 7.0 mmol/L Blood Urea Nitrogen 23 mg/dl Creatinine 1.81 mg/dl Est Creatinine Clear Calc Drug Dose 88.2 ml/min Estimated GFR () 56.1 Estimated GFR (Non- 48.4 BUN/Creatinine Ratio 12.7 Random Glucose 84 mg/dl Calcium Level 7.6 mg/dl Phosphorus Level 5.0 mg/dl Albumin 1.3 gm/dl Anti-Streptolysin O Antibody Screen POS IU/ml Anti-Streptolysin O Antibody Titer 400 IU/ml Heparin Anti-Xa Act, Low Molec Wt 1.16 IU/ML Assessment and Plan 31 y/o male with a history of DVT/PE, morbid obesity, h/o IVDU, and previous lumbar osteomyelitis( culture negative but treated with 6 wks of IV antibiotics via [place]) who presents with worsening anasarca, that although has had urine output in the negative still has progressed to worsened clinical swelling Anasarca, acute renal failure, proteinuria -Nephrology consulted, iv furosemide Started lisinopril 5 mg daily 04/26. treated for suspected UTI poa with rocephin iv -Hep B & C, HIV negative -24 hr urine protein collection with over [id number] mg of protein -Creatinine running near 1.9 -Immuno studies pending -Echocardiogram shows EF=45-50%, mild concentric left ventricular hypertrophy. Mild inferior base to mid hypokinesis. Severe pulmonary hypertension w/PASP 65- 70 mmHg and dilated IVC. HTN--BP remains poorly controlled amlodipine 5 mg PO qd, hydralazine 100 mg PO TID -Continue 6.25 mg PO BID, lisinopril Pulmonary hypertension suspected on echo -Cardiology consulted, Recommend right heart cath at some point to further evaluate. Possible chronic thromboembolic disease. Asymmetric right hilar enlargement, mediastinal lymphadenopathy -Pulmonology consulted, Doppler ultrasounds with subacute partially occlusive popliteal thrombus on full dose lovenox until procedure considered H/o DVT/PE, current LLE DVT -Previous DVT/PE in 2014 treated at [facility]. Per records, pt was supposed to be on lifelong anticoagulation. He was started on Eliquis but had at some point stopped taking it. He was then restarted on the Eliquis in Nov 2016 by his PCP due to his lower extremity edema -Small non-occlusive DVT in left common femoral vein, age indeterminate -RLE and upper extremities negative for DVT therapeutic Lovenox due to difficulty with IV access/lab monitoring Possible UTI-Repeat urine culture negative -Continue Rocephin treatment for 6 days HALLE-Significant desaturation with overnight pulse ox study. 233 minutes spent under 88% -Pt was refusing CPAP, conitnue to encourage H/O of osteomyelitis/Discitis-no current back pain Code Status -Level I, FULL RESUSCITATION STATUS Continued [facility] stay due to: multiple IV medications needed Discharge planning: home
[2017-04-27] MEDS: ENOXAPARIN 150 MG/1ML SYR SQ SCH (20:57)
[2017-04-27] MEDS: CEFTRIAXONE SOD INJ 1 GM in DEXTROSE 5% ADD-VANTAGE 50ML 50 ML IV SCH (20:57)
[2017-04-28] VITALS (7 sets, daily range): BP systolic 128–166; BP diastolic 65–80; PULSE 91–101; TEMP 36.5–37.4; O2SAT 91–97
[2017-04-28] MEDS: FUROSEMIDE INJ 80 MG in SYRINGE 0 ML IV SCH ×2 (07:39→14:05)
[2017-04-28 08:10] LABS: PTT PATIENT 25.7 SECONDS (21.0-31.0)
[2017-04-28] MEDS: POTASSIUM CHLORIDE 10 MEQ TABCR PO SCH ×2 (08:23→17:22)
[2017-04-28] MEDS: NICOTINE 14 MG/24 HR TDSY TD SCH (08:23)
[2017-04-28] MEDS: AMLODIPINE BESYLATE 5 MG TAB PO SCH (08:24)
[2017-04-28] MEDS: CARVEDILOL 6.25 MG TAB PO SCH ×2 (08:24→21:25)
[2017-04-28 08:32] LABS: ALBUMIN 1.3 gm/dl (3.4-5.0); CALCIUM 7.2 mg/dl (8.5-10.1); CREATININE 1.75 mg/dl (0.60-1.40); POTASSIUM 3.6 mmol/L (3.5-5.1)
[2017-04-28 08:33] LABS: PHOSPHORUS 4.6 mg/dl (2.5-4.9)
[2017-04-28] MEDS ORDERED: LISINOPRIL 10 MG TAB PO SCH (09:00)
[2017-04-28] MEDS: ENOXAPARIN 150 MG/1ML SYR SQ SCH ×2 (10:20→21:27)
--- NOTE | 2017-04-28 10:49 | Nephrology Progress Note ---
Nephrology Progress Note Date of Service Apr 28, 2017. Chief Complaint Nephrosis Subjective No acute events overnight. No complaints this morning. Star feels well. He denies significant improvement in edema. Upper extremity edema remains and Star reports difficulty keeping his arms elevated. He denies pain. He denies shortness of breath. No fevers or chills. Bowie intact draining dark concentrated urine. Review of Systems A complete review of systems was performed. Pertinent positives are noted above. All other systems are negative. Vital Signs Last 8 Hrs Date Time Temp Pulse Resp B/P (MAP) Pulse Ox O2 Delivery O2 Flow Rate FiO2 04/28/17 08:00 Room Air 04/28/17 07:47 36.5 94 18 166/73 (104) 97 04/28/17 04:00 Nasal Cannula 2.0 04/28/17 03:31 37.1 92 16 134/77 (96) 97 2.0 Last Recorded Weight Weight (Kilograms): 158.500 Physical Exam General Appearance: no apparent distress, + obese Head: normocephalic, atraumatic Eyes: normal inspection, sclerae normal ENT: normal ENT inspection, pharynx normal Neck: supple, no adenopathy Respiratory/Chest: lungs clear, no respiratory distress, no accessory muscle use Cardiovascular: regular rate, rhythm, no gallop Abdomen/GI: non tender, soft Genitourinary - Male: + pertinent finding (scrotal edema, Bowie) Extremities/Musculoskelatal: + swelling, + pertinent finding (signficant generalized edema) Neurologic/Psych: alert, normal mood/affect Family History Hypertension Social History Drug Use: none Marital Status: single Occupation: unemployed Laboratory Results Past 24 Hours 04/28/17 07:24 Test 04/27/17 14:44 04/28/17 07:24 Heparin Anti-Xa Act, Low Molec Wt 1.16 IU/ML (0 - <0.10) Activated Partial Thromboplast Time 25.7 SECONDS (21.0-31.0) Partial Thromboplastin Ratio 1.0 Anion Gap 4.0 mmol/L (3-11) Est Creatinine Clear Calc Drug Dose 90.7 ml/min Estimated GFR () 58.4 Estimated GFR (Non- 50.4 BUN/Creatinine Ratio 12.0 (10-20) Calcium Level 7.2 mg/dl (8.5-10.1) Phosphorus Level 4.6 mg/dl (2.5-4.9) Albumin 1.3 gm/dl (3.4-5.0) Allergies Coded Allergies: No Known Allergies (Unverified , 04/22/17) Medications Current Inpatient Medications Medications (Trade) Dose Ordered Sig/Silvio Route Start Time Stop Time Status Last Admin Dose Admin Ceftriaxone Sodium 1 gm/ Dextrose 50 ml @ 100 mls/hr Q24H IV 04/23/17 20:00 04/28/17 19:59 04/27/17 20:57 100 MLS/HR Acetaminophen (Tylenol Tab) 650 mg Q4H PRN PO 04/22/17 21:00 05/22/17 20:59 04/24/17 14:58 650 MG Al Hydrox/Mg Hydrox/Simethicone (Maalox Max Susp) 15 ml Q4H PRN PO 04/22/17 21:00 05/22/17 20:59 Magnesium Hydroxide (Milk Of Magnesia Susp) 30 ml Q12H PRN PO 04/22/17 21:00 05/22/17 20:59 Ondansetron HCl (Zofran Inj) 4 mg Q6H PRN IV 04/22/17 21:00 05/22/17 20:59 Polyethylene (Miralax Powder Packet) 17 gm DAILY PRN PO 04/22/17 21:00 05/22/17 20:59 Potassium Chloride (Klor-Con M10) 10 meq BID17 PO 04/22/17 23:45 05/22/17 23:44 04/28/17 08:23 10 MEQ Nicotine (Nicoderm Cq 14MG Patch) 1 patch QAM TD 04/23/17 00:45 05/23/17 00:44 04/28/17 08:23 1 PATCH Miscellaneous (Remove Nicoderm Patch) 1 ea HS N/A 04/23/17 21:00 05/23/17 20:59 04/26/17 21:00 1 EA Hydralazine HCl (HydrALAZINE INJ) 20 mg Q6 PRN IV. 04/23/17 09:15 05/23/17 09:14 04/24/17 22:11 20 MG Hydralazine HCl (Apresoline Tab) 100 mg TID PO 04/24/17 21:00 05/24/17 20:59 04/28/17 08:25 100 MG Amlodipine Besylate (Norvasc Tab) 5 mg QAM PO 04/25/17 09:00 05/25/17 08:59 04/28/17 08:24 5 MG Carvedilol (Coreg Tab) 6.25 mg BID PO 04/25/17 21:00 05/25/17 20:59 04/28/17 08:24 6.25 MG Miconazole Nitrate (Desenex Powder) 1 appln BID PRN EXT 04/25/17 13:00 05/25/17 12:59 Miscellaneous Information 1 ea UD PRN N/A 04/25/17 23:00 05/25/17 22:59 Furosemide 80 mg/ Syringe 8 ml @ 4 mls/min [id number] IV 04/27/17 14:00 05/24/17 20:59 04/28/17 07:39 4 MLS/MIN Lisinopril (Zestril Tab) 10 mg QAM PO 04/28/17 09:00 05/26/17 08:59 04/28/17 08:24 10 MG Enoxaparin Sodium (Lovenox Inj) 129 mg Q12@1000,2200 SQ 04/27/17 22:00 05/27/17 21:59 04/28/17 10:20 129 MG Impression (1) Renal insufficiency (2) Proteinuria (3) Anasarca (4) Hypoalbuminemia (5) Anemia Star is a 31 year-old male presenting with nephrotic syndrome. Creatinine stable stable at 1.75 mg/dL this AM. Good urine output with diuretics. Furosemide 80 mg IV x 2 doses yesterday for net negative fluid balance of 3 L. Blood pressure improving. Tolerating Lisinopril. 24 hour urine collection documented >11 grams/d proteinuria. Urine is notable for 30+ WBC, 30+ RBC. Bacteriuria improved. Bowie placed for accurate I/O's and for clean catch urine while scrotal edema improves. I discussed with hr associate from [place] yesterday. Would like to coordinate transfer to [facility] to expedite renal biopsy for definitive diagnosis. Dr. Maury Moore has offered to follow the patient and coordinate follow up post discharge. Patient continues to require inpatient status for diuresis, monitoring renal function, anticoagulation and appropriate monitoring for kidney biopsy given comorbid conditions. Recommendations Nephrosis: -- Continue furosemide to encourage net negative fluid balance (furosemide increased to 80 mg BID to TID -- Sodium restrict diet -- Monitor metabolic profile daily -- Kidney biopsy to be arranged at IR at [facility] - inpatient transfer pending -- SPEP/immunofixation pending -- HIV negative -- Hepatitis serologies negative -- Continue to increase DAVID as tolerated Hypertension: -- Hydralazine 100 mg TID -- Increased diuretics -- Lisinopril increased to 20 mg daily -- Patient also on Coreg and amlodipine, suggest weaning these as BP improves with diuresis and increased DAVID Pyuria: -- Ceftriaxone for UTI -- Culture polymicrobial but now cleared Hematuria, gross: -- Etiology unclear - possibly cystitis -- CT reviewed
--- NOTE | 2017-04-28 18:47 | Progress Note ---
Subjective Date of Service: Apr 28, 2017. Subjective Patient is diuresing well having continuing losing weight and negative urine output we are in a holding pattern with regard to transfer for possible renal biopsy to determine why he has nephrotic range proteinuria. Patient himself has no complaints or problems he feels his arms are slightly improved his scrotum is still massively swollen his legs are large he has difficulty ambulating Problem List Medical Problems: (1) Acute kidney injury Status: Acute (2) Hypoxia Status: Acute (3) Pulmonary edema Status: Acute (4) Spinal epidural abscess Status: Acute Review of Systems Constitutional: + weakness, + fatigue, No fever, No chills Respiratory: + dyspnea on exertion, No cough, No shortness of breath Cardiac: + edema, No chest pain Abdomen: No pain, No nausea, No vomiting, No diarrhea Psychiatric: No depression symptoms, No anhedonism Objective Vital Signs Date Time Temp Pulse Resp B/P (MAP) Pulse Ox O2 Delivery O2 Flow Rate FiO2 04/28/17 16:00 Room Air 04/28/17 15:08 36.6 97 20 158/80 (106) 95 Room Air 04/28/17 12:00 Room Air 04/28/17 12:00 36.9 91 18 160/74 (102) 94 Room Air 04/28/17 08:00 Room Air 04/28/17 07:47 36.5 94 18 166/73 (104) 97 04/28/17 04:00 Nasal Cannula 2.0 04/28/17 03:31 37.1 92 16 134/77 (96) 97 2.0 04/28/17 00:05 37.3 101 18 141/69 (93) 91 Room Air 04/27/17 23:59 Room Air 04/27/17 20:00 Room Air 04/27/17 19:02 83 Room Air 04/27/17 18:55 36.5 103 20 142/78 (99) 92 Room Air Physical Exam General Appearance: + mild distress, + obese Eyes: normal inspection, sclerae normal Neck: supple, no JVD Respiratory/Chest: chest non-tender, lungs clear, normal breath sounds Cardiovascular: regular rate, rhythm, no murmur Abdomen: normal bowel sounds, non tender, soft Extremities: + pedal edema, + swelling Neurologic/Psychiatric: alert, oriented x 3 Laboratory Results Last 24 Hours Test 04/28/17 07:24 Activated Partial Thromboplast Time 25.7 SECONDS Partial Thromboplastin Ratio 1.0 Sodium Level 140 mmol/L Potassium Level 3.6 mmol/L Chloride Level 104 mmol/L Carbon Dioxide Level 32 mmol/L Anion Gap 4.0 mmol/L Blood Urea Nitrogen 21 mg/dl Creatinine 1.75 mg/dl Est Creatinine Clear Calc Drug Dose 90.7 ml/min Estimated GFR () 58.4 Estimated GFR (Non- 50.4 BUN/Creatinine Ratio 12.0 Random Glucose 78 mg/dl Calcium Level 7.2 mg/dl Phosphorus Level 4.6 mg/dl Albumin 1.3 gm/dl Assessment and Plan 31 y/o male with a history of DVT/PE, morbid obesity, h/o IVDU, and previous lumbar osteomyelitis( culture negative but treated with 6 wks of IV antibiotics via [place]) who presents with worsening anasarca, that although has had urine output in the negative still has progressed to worsened clinical swelling Anasarca, acute renal failure, proteinuria -Nephrology consulted, continue iv furosemide tolerating lisinopril 5 mg daily with better blood pressure, . treated for suspected UTI poa with rocephin iv -Hep B & C, HIV negative -24 hr urine protein collection with over 19249 mg of protein -Creatinine remains stable -Immuno studies pending -Echocardiogram shows EF=45-50%, mild concentric left ventricular hypertrophy. Mild inferior base to mid hypokinesis. Severe pulmonary hypertension w/PASP 65- 70 mmHg and dilated IVC. HTN--BP remains poorly controlled amlodipine 5 mg PO qd, hydralazine 100 mg PO TID -Continue 6.25 mg PO BID, lisinopril 5mg Pulmonary hypertension suspected on echo -Cardiology consulted, Recommend right heart cath at some point to further evaluate. Possible chronic thromboembolic disease. Asymmetric right hilar enlargement, mediastinal lymphadenopathy -Pulmonology consulted, Doppler ultrasounds with subacute partially occlusive popliteal thrombus continues on full dose lovenox until procedure considered H/o DVT/PE, current LLE DVT -Previous DVT/PE in 2014 treated at [facility]. Per records, pt was supposed to be on lifelong anticoagulation. He was started on Eliquis but had at some point stopped taking it. He was then restarted on the Eliquis in Nov 2016 by his PCP due to his lower extremity edema -Small non-occlusive DVT in left common femoral vein, age indeterminate -RLE and upper extremities negative for DVT therapeutic Lovenox due to difficulty with IV access/lab monitoring Possible UTI-Repeat urine culture negative -Continue Rocephin treatment for 6 days HALLE-Significant desaturation with overnight pulse ox study. 233 minutes spent under 88% -Pt was refusing CPAP, continue to encourage H/O of osteomyelitis/Discitis-no current back pain Code Status -Level I, FULL RESUSCITATION STATUS Continued [facility] stay due to: multiple IV medications needed Discharge planning: home
[2017-04-29 03:41] VITALS: BP 128/71; PULSE 105; TEMP 37.3; O2SAT 86
[2017-04-29 04:45] VITALS: PULSE 96; O2SAT 93
[2017-04-29 06:57] LABS: HEMATOCRIT 29.3 % (42-52); HEMOGLOBIN 9.1 g/dL (14.0-18.0); MEAN CELL VOLUME 82.1 fL (80-100); MEAN CORPUSCULAR HEMOGLOBIN 25.5 pg (25-34); MEAN CORPUSCULAR HGB CONC 31.1 g/dl (32-36); MEAN PLATELET VOLUME 9.3 fL (7.4-10.4); PLATELET COUNT 337 K/uL (130-400); RED CELL DISTRIBUTION WIDTH CV 16.4 % (11.5-14.5); RED CELL DISTRIBUTION WIDTH SD 49.4 fL (36.4-46.3); WHITE BLOOD COUNT 6.94 K/uL (4.8-10.8)
[2017-04-29 07:08] LABS: ALBUMIN 1.2 gm/dl (3.4-5.0); CALCIUM 7.4 mg/dl (8.5-10.1); CREATININE 1.61 mg/dl (0.60-1.40)
[2017-04-29 07:09] LABS: PHOSPHORUS 4.5 mg/dl (2.5-4.9)
[2017-04-29 07:13] VITALS: BP 155/69; PULSE 90; TEMP 37; O2SAT 95
[2017-04-29] MEDS: FUROSEMIDE INJ 80 MG in SYRINGE 0 ML IV SCH ×2 (07:37→14:28)
[2017-04-29 08:48] LABS: PTT PATIENT 27.1 SECONDS (21.0-31.0)
[2017-04-29] MEDS ORDERED: LISINOPRIL 20 MG TAB PO SCH (09:00)
[2017-04-29] MEDS: NICOTINE 14 MG/24 HR TDSY TD SCH (09:21)
[2017-04-29] MEDS: CARVEDILOL 6.25 MG TAB PO SCH (09:22)
[2017-04-29] MEDS: AMLODIPINE BESYLATE 5 MG TAB PO SCH (09:22)
[2017-04-29] MEDS: POTASSIUM CHLORIDE 10 MEQ TABCR PO SCH ×2 (09:22→17:12)
[2017-04-29] MEDS: ENOXAPARIN 150 MG/1ML SYR SQ SCH (10:25)
[2017-04-29 12:37] VITALS: BP 144/71; PULSE 97; TEMP 37.1; O2SAT 94
--- NOTE | 2017-04-29 15:02 | Nephrology Progress Note ---
Nephrology Progress Note Date of Service Apr 29, 2017. Chief Complaint Nephrosis Subjective No acute events overnight. Star was seen and evaluated this morning. Star continues to feel well. He reports continued debility related to edema but states that he has started to notice improvement. He denies dyspnea. Appetite is good. He denies lightheadedness or dizziness. Plan for transfer for kidney biopsy pending bed availability. Review of Systems A complete review of systems was performed. Pertinent positives are noted above. All other systems are negative. Vital Signs Last 8 Hrs Date Time Temp Pulse Resp B/P (MAP) Pulse Ox O2 Delivery O2 Flow Rate FiO2 04/29/17 12:37 37.1 97 22 144/71 (95) 94 Room Air 04/29/17 12:00 Room Air 04/29/17 08:00 Room Air 04/29/17 07:13 37.0 90 16 155/69 (97) 95 Room Air I & O 24-Hour Column 04/30/17 08:00 Intake Total 253 ml Output Total 1450 ml Balance -1197 ml Last Recorded Weight Weight (Kilograms): 158.500 Physical Exam General Appearance: no apparent distress, + obese Head: normocephalic, atraumatic Eyes: normal inspection, sclerae normal ENT: normal ENT inspection, pharynx normal Neck: supple Respiratory/Chest: lungs clear, no respiratory distress, no accessory muscle use Cardiovascular: regular rate, rhythm, no gallop Abdomen/GI: non tender, soft Genitourinary - Male: + pertinent finding (Bowie draining clear yellow urine) Extremities/Musculoskelatal: + swelling (improving generalized edema) Neurologic/Psych: alert, normal mood/affect Family History Hypertension Social History Drug Use: none Marital Status: single Occupation: unemployed Laboratory Results Past 24 Hours 04/29/17 06:31 04/29/17 06:31 Test 04/29/17 06:31 04/29/17 08:24 04/29/17 13:55 Red Blood Count 3.57 M/uL (4.7-6.1) Mean Corpuscular Volume 82.1 fL (80-100) Mean Corpuscular Hemoglobin 25.5 pg (25-34) Mean Corpuscular Hemoglobin Concent 31.1 g/dl (32-36) RDW Standard Deviation 49.4 fL (36.4-46.3) RDW Coefficient of Variation 16.4 % (11.5-14.5) Mean Platelet Volume 9.3 fL (7.4-10.4) Anion Gap 7.0 mmol/L (3-11) Est Creatinine Clear Calc Drug Dose 98.6 ml/min Estimated GFR () 64.6 Estimated GFR (Non- 55.8 BUN/Creatinine Ratio 12.0 (10-20) Calcium Level 7.4 mg/dl (8.5-10.1) Phosphorus Level 4.5 mg/dl (2.5-4.9) Albumin 1.2 gm/dl (3.4-5.0) Activated Partial Thromboplast Time 27.1 SECONDS (21.0-31.0) Partial Thromboplastin Ratio 1.0 Heparin Anti-Xa Act, Low Molec Wt 1.36 IU/ML (0 - <0.10) Allergies Coded Allergies: No Known Allergies (Unverified , 04/22/17) Medications Current Inpatient Medications Medications (Trade) Dose Ordered Sig/Silvio Route Start Time Stop Time Status Last Admin Dose Admin Acetaminophen (Tylenol Tab) 650 mg Q4H PRN PO 04/22/17 21:00 05/22/17 20:59 04/24/17 14:58 650 MG Al Hydrox/Mg Hydrox/Simethicone (Maalox Max Susp) 15 ml Q4H PRN PO 04/22/17 21:00 05/22/17 20:59 Magnesium Hydroxide (Milk Of Magnesia Susp) 30 ml Q12H PRN PO 04/22/17 21:00 05/22/17 20:59 Ondansetron HCl (Zofran Inj) 4 mg Q6H PRN IV 04/22/17 21:00 05/22/17 20:59 Polyethylene (Miralax Powder Packet) 17 gm DAILY PRN PO 04/22/17 21:00 05/22/17 20:59 Potassium Chloride (Klor-Con M10) 10 meq BID17 PO 04/22/17 23:45 05/22/17 23:44 04/29/17 09:22 10 MEQ Nicotine (Nicoderm Cq 14MG Patch) 1 patch QAM TD 04/23/17 00:45 05/23/17 00:44 04/29/17 09:21 1 PATCH Miscellaneous (Remove Nicoderm Patch) 1 ea HS N/A 04/23/17 21:00 05/23/17 20:59 04/28/17 21:28 1 EA Hydralazine HCl (HydrALAZINE INJ) 20 mg Q6 PRN IV. 04/23/17 09:15 05/23/17 09:14 04/24/17 22:11 20 MG Hydralazine HCl (Apresoline Tab) 100 mg TID PO 04/24/17 21:00 05/24/17 20:59 04/29/17 14:28 100 MG Carvedilol (Coreg Tab) 6.25 mg BID PO 04/25/17 21:00 05/25/17 20:59 04/29/17 09:22 6.25 MG Miconazole Nitrate (Desenex Powder) 1 appln BID PRN EXT 04/25/17 13:00 05/25/17 12:59 Miscellaneous Information 1 ea UD PRN N/A 04/25/17 23:00 05/25/17 22:59 Furosemide 80 mg/ Syringe 8 ml @ 4 mls/min [id number] IV 04/27/17 14:00 05/24/17 20:59 04/29/17 14:28 4 MLS/MIN Enoxaparin Sodium (Lovenox Inj) 129 mg Q12@1000,2200 SQ 04/27/17 22:00 05/27/17 21:59 04/29/17 10:25 129 MG Lisinopril (Zestril Tab) 40 mg QAM PO 04/30/17 09:00 05/26/17 08:59 Impression (1) Renal insufficiency (2) Proteinuria (3) Anasarca (4) Hypoalbuminemia (5) Anemia Star is a 31 year-old male presenting with nephrotic syndrome. Creatinine stable stable at 1.75 mg/dL this AM. Good urine output with diuretics. Furosemide 80 mg IV x 2 doses yesterday for net negative fluid balance of >3L/d. Blood pressure improving. Tolerating Lisinopril. 24 hour urine collection documented >11 grams/d proteinuria. Urine is notable for 30+ WBC, 30+ RBC. Bacteriuria improved. Bowie placed for accurate I/O's and for clean catch urine while scrotal edema improves. Recommendations Nephrosis: -- Continue furosemide to encourage net negative fluid balance (patient tolerating 3-4 L/d) - furosemide 80 mg BID currently -- Continue to monitor daily metabolic profile at this time -- Kidney biopsy to be arranged at IR at [facility] -- SPEP/immunofixation pending -- HIV negative -- Hepatitis serologies negative -- Tolerating Lisinopril Hypertension: -- Hydralazine 100 mg TID -- Lisinopril increased to 40 mg daily -- Will stop amlodipine today -- Patient remains on Coreg in addition to diuretics, hydralazine and DAVID Pyuria: -- Ceftriaxone for UTI -- Culture polymicrobial but cleared Hematuria, gross: -- Etiology unclear - suspected cystitis -- Clearing Scrotal edema: -- Improving -- Encourage ambulation as tolerated -- OK to remove Bowie catheter for voiding trial
--- NOTE | 2017-04-29 15:39 | Pharmacy Progress Note ---
Enoxaparin Dosing Consult Date of Service: Apr 29, 2017. Pharmacy Dosing Scope Pharmacy is consulted to follow the use of enoxaparin in a special risk patient population possibly prone to accumulate drug: bariatric/renal impairment in the setting of ordered THERAPEUTIC enoxaparin sub-q dosing therapy, order appropriate labs and adjust drug/dose/frequency. Subjective The patient is a 31 year old male admitted on Apr 22, 2017 at 20:57 for Anasarca , Pleural Effusion. Patient is to receive or is currently on day # 5 of THERAPEUTIC enoxaparin sub- q for DVT LLE. Pertinent PMH: Poor vascular access d/t global anasarca. Objective Height (Feet): 5 Height (Inches): 9.00 Weight (Kilograms): 158.500 Laboratory Results: Last 24 Hours Test 04/29/17 06:31 04/29/17 08:24 Blood Urea Nitrogen 19 mg/dl (7-18) Creatinine 1.61 mg/dl (0.60-1.40) Hematocrit 29.3 % (42-52) Hemoglobin 9.1 g/dL (14.0-18.0) Platelet Count 337 K/uL (130-400) Activated Partial Thromboplast Time 27.1 SECONDS (21.0-31.0) Partial Thromboplastin Ratio 1.0 Last 72 Hours Test 04/27/17 06:55 04/27/17 14:44 04/29/17 06:31 04/29/17 13:55 Platelet Count 371 K/uL 337 K/uL Heparin Anti-Xa Act, Low Molec Wt 1.16 IU/ML 1.36 IU/ML Assessment & Plan Regarding THERAPEUTIC Enoxaparin: Change to enoxaparin 150 mg sub-q every 24 hours based on review of the following special population risk factors for drug accumulation: bariatric/ renal impairment, with supratherapeutic Xa. * Peak Anti-factor Xa level drawn 4 hours after 1000 dose today, goal 0.5- 1.0IU.ml for q12h dosing, resulting in level of 1.36IU/ml * Pt has accumulated dose d/t BMI = 52kg/m2 * Decreased dose by about 50%, and only dosing daily to decrease injections for patient. Labs: * Ongoing Labs (P&T Approved): CBC q 2 days x 2 weeks, serum creat q 2 days We will continue to monitor this patient and make adjustments as needed. Thank you.
[2017-04-29] MEDS ORDERED: LVNIS80 SQ (15:40)
[2017-04-29 15:51] VITALS: BP 165/70; PULSE 92; TEMP 37; O2SAT 92
[2017-04-29 19:25] VITALS: BP 153/68; PULSE 97; TEMP 36.7; O2SAT 95
[2017-04-30 03:31] LABS: ANA SCREEN TC 249X NEGATIVE (NEGATIVE); COMPLEMENT C3 TC 44859W 29 MG/DL (90-180); COMPLEMENT C4 TC 44982E 16 MG/DL (16-47)
[2017-04-30] MEDS ORDERED: LISINOPRIL 40 MG TAB PO SCH (09:00)
[2017-04-30] MEDS ORDERED: ENOXAPARIN 150 MG/1ML SYR SQ SCH (09:00)
--- NOTE | 2017-05-03 12:26 | EDITING REQUIRED CODING QUERY ---
CODING QUERY To promote full compliance with coding requirements relating to patient care, provider participation is requested in all cases of certified medical records coder uncertainty. Please assist us with the question(s) below: Coding Question(s): There is possible systolic CHF exacerbation and right heart failure, which may have contributed to fluid overload documented on the 04/24 Progress Note. There is no documentation of this or of it being ruled out afterwards or on the Discharge Summary. Please clarify below, in your clinical opinion. ( ) Possible Systolic CHF exacerbation ( xx ) Possible Systolic CHF exacerbation was ruled-out Physician's Response(s): Thank you Nichol Ryan Principal Diagnosis: "_that condition established after study, to be chiefly responsible for occasioning the admission of the patient to the hospital for care." Co-Existing Principal Diagnosis: "_when two or more diagnoses equally meet the criteria for principal diagnosis as determined by the circumstances of admission, diagnostic work up, and/or therapy provided, and the Alphabetic Index, Tabular List, or another coding guideline does not provide sequencing direction, any one of the diagnoses may be sequenced first." "When the physician has documented what appears to be a current diagnosis in the body of the record, but has not included the diagnosis in the final diagnostic statement, the physician should be asked whether the diagnosis should be added." (Source Coding [facility] 2 QTR90. p3-4)
== END 2017-04-29 19:53 | disposition short-term general hospital (02) | DRG 699 ==
LOC: EDBD 16:33 → C.EDC 16:34 → UNDOADMIN 20:57 → C.2T 20:57 → ENRESERV 21:58 → C.2T 04-25 21:06
PROVIDERS: ADMIT Internal Medicine; ATTEND Internal Medicine
DX: N00.9 Acute nephritic syndrome with unspecified morphologic changes (principal); N39.0 Urinary tract infection, site not specified; I82.402 Acute embolism and thrombosis of unspecified deep veins of left lower extremity; Z68.43 Body mass index [BMI] 50.0-59.9, adult; R60.1 Generalized edema; N17.9 Acute kidney failure, unspecified; R09.02 Hypoxemia; E88.09 Other disorders of plasma-protein metabolism, not elsewhere classified; G47.33 Obstructive sleep apnea (adult) (pediatric); I10 Essential (primary) hypertension; E66.01 Morbid (severe) obesity due to excess calories; F11.10 Opioid abuse, uncomplicated; F17.200 Nicotine dependence, unspecified, uncomplicated; Z79.01 Long term (current) use of anticoagulants; Z86.711 Personal history of pulmonary embolism; Z86.19 Personal history of other infectious and parasitic diseases; Z87.39 Personal history of other diseases of the musculoskeletal system and connective tissue; Z86.718 Personal history of other venous thrombosis and embolism; Z82.49 Family history of ischemic heart disease and other diseases of the circulatory system

== ENCOUNTER → 2017-05-25 | Outpatient (CLI) | payer OTHER ==
[~2017-05-25] MED LIST changes: +APR50 PO; -CARV3.12 PO; +CRG625 PO; +FRS/80 IV; +LSN5 PO; +LVNIS80 SQ; +MCTP EXT; +NICO14DI5 TD; +NRV5 PO; +POTA10CA28 PO
[2017-05-25 14:53] LABS: BASO % 0.1 %; BASO ABS # 0.01 K/uL (0-0.2); EOS % 0.1 %; EOS ABS # 0.02 K/uL (0-0.5); HEMATOCRIT 34.4 % (42-52); HEMOGLOBIN 10.8 g/dL (14.0-18.0); IG# 0.09 K/uL (0.00-0.02); LYMPH % 6.1 %; LYMPH ABS # 0.93 K/uL (1.2-3.4); MEAN CELL VOLUME 92.7 fL (80-100); MEAN CORPUSCULAR HEMOGLOBIN 29.1 pg (25-34); MEAN CORPUSCULAR HGB CONC 31.4 g/dl (32-36); MEAN PLATELET VOLUME 9.1 fL (7.4-10.4); MONO % 2.3 %; MONO ABS # 0.36 K/uL (0.11-0.59); NEUT % 90.8 %; NEUT ABS # 13.91 K/uL (1.4-6.5); PLATELET COUNT 297 K/uL (130-400); RED CELL DISTRIBUTION WIDTH CV 19.5 % (11.5-14.5); RED CELL DISTRIBUTION WIDTH SD 66.4 fL (36.4-46.3); WHITE BLOOD COUNT 15.32 K/uL (4.8-10.8)
[2017-05-25 15:01] LABS: ALBUMIN 2.4 gm/dl (3.4-5.0); BLOOD UREA NITROGEN 55 mg/dl (7-18); CALCIUM 8.2 mg/dl (8.5-10.1); CARBON DIOXIDE 30 mmol/L (21-32); CREATININE 1.23 mg/dl (0.60-1.40); GLUCOSE 96 mg/dl (70-99); PHOSPHORUS 3.1 mg/dl (2.5-4.9); POTASSIUM 4.2 mmol/L (3.5-5.1); SODIUM 141 mmol/L (136-145)
== END | disposition home or self-care (01) ==
LOC: C.LAB1850 12:18
PROVIDERS: ATTEND Internal Medicine Nephrology
DX: N28.9 Disorder of kidney and ureter, unspecified (principal)

== ENCOUNTER → 2017-06-24 | Outpatient (CLI) | payer OTHER ==
[2017-06-24 16:21] LABS: ALBUMIN 3.3 gm/dl (3.4-5.0); BLOOD UREA NITROGEN 56 mg/dl (7-18); CARBON DIOXIDE 33 mmol/L (21-32); CREATININE 1.52 mg/dl (0.60-1.40); GLUCOSE 96 mg/dl (70-99); PHOSPHORUS 3.4 mg/dl (2.5-4.9); POTASSIUM 4.2 mmol/L (3.5-5.1); SODIUM 140 mmol/L (136-145)
== END | disposition home or self-care (01) ==
LOC: C.LAB1850 15:00
PROVIDERS: ATTEND Internal Medicine Nephrology
DX: N05.5 Unspecified nephritic syndrome with diffuse mesangiocapillary glomerulonephritis (principal)